=== PATIENT | female | born 1965 | race Caucasian/White ===

== ENCOUNTER 2019-07-14 15:41 | Inpatient (IN) ==
[2019-07-14] MEDS ORDERED: SODIUM CHLORIDE 0.9% 1000ML 500 ML IV ONE (16:16)
--- NOTE | 2019-07-14 16:51 | XRay Report ---
XR chest 1V portable CLINICAL HISTORY: WEAKNESS COMPARISON STUDY: 12/02/2018 FINDINGS: Cardiomegaly. Potential small parenchymal infiltrate left base. Chronic fullness of the rig ht infrahilar region. Slight chronic blunting right lateral costophrenic angle. Mid and upper lungs a re considered clear. Pulmonary vasculature is prominent. IMPRESSION: Mild congestive heart failure with a small superimposed left basilar parenchymal infiltr ate. ACT 112: Negative or not required by law. The above report was generated using voice recognition software. It may contain grammatical, syntax or spelling errors. Electronically signed by: Castro Lancaster M.D. 07/14/2019 4:50 PM
--- NOTE | 2019-07-14 17:01 | CT Scan Report ---
CT head/brain wo con CT DOSE: 1228.53 mGy.cm HISTORY: Mental status change Pt c/o seizure TECHNIQUE: Multiaxial CT images of the head were performed without the use of intravenous contrast. A dose lowering technique was utilized adhering to the principles of ALARA. Comparison: 05/01/2019 Findings: No significant change compared to the prior study. The ventriculostomy catheter as well as right occipital craniotomy changes are unaltered. Vasogenic edematous change of the right occipital lobe is stable. There is no evidence for hydrocephalus. Left lateral ventricle is decompressed which is unchanged fro m the prior study. There is no evidence for acute intracranial hemorrhage. Impression: Chronic and postoperative change. No acute or interval process as compared to the prior study. ACT 112: Negative or not required by law. The above report was generated using voice recognition software. It may contain grammatical, syntax or spelling errors. Electronically signed by: Castro Lancaster M.D. 07/14/2019 5:00 PM
--- NOTE | 2019-07-14 17:02 | Electrocardiogram Report ---
Test Reason : Blood Pressure : / mmHG Vent. Rate : 083 BPM Atrial Rate : 085 BPM P-R Int : 000 ms QRS Dur : 160 ms QT Int : 402 ms P-R-T Axes : 000 244 091 degrees QTc Int : 472 ms Atrial fibrillation Left bundle branch block Lateral infarct , age undetermined Abnormal ECG When compared with ECG of 01-MAY-2019 21:08, No significant change Confirmed by Mansoor Martinez ([id number]) on 07/14/2019 5:01:34 PM Referred By: Confirmed By:Mansoor Martinez
[2019-07-14] MEDS ORDERED: PIPERACILL/TAZOBAC CONSULT ACTIVE PRN ×2 (17:08→20:05)
[2019-07-14] MEDS ORDERED: PIPERACILLIN/TAZOBACTAM 4.5 GM/120 ML BAG IV ONE (17:08)
[2019-07-14] MEDS ORDERED: LEVOFLOXACIN/D5W 750 MG/150 ML BAG IV STA (17:08)
[2019-07-14 17:27] LABS: Hematocrit (blood only) 25.8 % (37-47); Hemoglobin 7.6 g/dL (12.0-16.0); Mean Corpuscular Hemoglobin 29.6 pg (25-34); Mean Corpuscular Hgb Conc 29.5 g/dL (32-36); Mean Corpuscular Volume 100.4 fL (80-100); RDW Coefficient of Variation 17.3 % (11.5-14.5); Red Blood Count 2.57 M/uL (4.2-5.4); White Blood Count 4.56 K/uL (4.8-10.8)
[2019-07-14 17:28] LABS: Basophils # (auto) 0.01 K/uL (0-0.2); Basophils % (auto) 0.2 %; Echinocytes 1+; Eosinophils # (auto) 0.05 K/uL (0-0.5); Eosinophils % (auto) 1.1 %; Immature Granulocytes # (auto) 0.02 K/uL (0.00-0.02); Immature Granulocytes % (auto) 0.4 %; Lymphocytes # (auto) 0.29 K/uL (1.2-3.4); Lymphocytes % (auto) 6.4 %; Mean Platelet Volume 11.7 fL (7.4-10.4); Monocytes # (auto) 0.49 K/uL (0.11-0.59); Monocytes % (auto) 10.7 %; Neutrophils % (auto) 81.2 %; Nucleated RBC # (auto) 0.06 K/uL (0-0); Nucleated RBC % (auto) 1.2 %; Ovalocytes 1+; Platelet Count 77 K/uL (130-400); Platelet Estimate Decreased (Normal)
[2019-07-14] MEDS ORDERED: SODIUM CHLORIDE 0.9% 250 ML IV PRN (17:31)
[2019-07-14 17:35] LABS: Giant Platelets 1+
[2019-07-14 17:55] LABS: Albumin Globulin Ratio 0.7 (0.9-2); Albumin Level 1.7 gm/dl (3.4-5.0); BUN Creatinine Ratio 7.2 (10-20); Bilirubin,Total 0.4 mg/dl (0.2-1); Calcium 5.1 mg/dl (8.5-10.1); Creatinine Clr Calc Pharmacy 30.3 ml/min; Est GFR (Non-African American) 23.3; Globulin 2.3 gm/dl (2.5-4.0); Potassium 2.3 mmol/L (3.5-5.1); Thyroid Stimulating Hormone 2.25 uIu/ml (0.300-4.500)
[2019-07-14] MEDS ORDERED: PANTOprazole 80 MG in DEXTROSE 5% 100 ML IV STA (18:36)
--- NOTE | 2019-07-14 18:41 | History & Physical Report ---
Date of Service July 14, 2019 Assessment & Plan (1) Lethargy: Seems likely related to lunesta use in the setting of ESRD and incomplete HD HypoK, PNA, and anemia are likely contributing as well d/c lunesta CT head neg for acute TSH WNL IVF Monitor Some concern for seizure at HD, however no hx of this and described as more of a shaking episode Likely related to lunesta or possibly a vasovagal reaction Tele monitor (2) ESRD (end stage renal disease): HD on // Not completed on Wednesday, which likely allowed for further lunesta stacking Renal c/s (3) CHF (congestive heart failure): Noted on CXR Unclear if this is a chronic issue No diuretics on med rec (4) PNA (pneumonia): zosyn started in the ED, will continue Noted on CXR (5) COPD (chronic obstructive pulmonary disease): continue home meds (6) Anemia: Hb 04/2019 was 9.8, noted to be 7.6 on admission Hemoccult pending NPO 2 units PRBC pending (7) Hypokalemia: replace and monitor (8) Hypocalcemia: Monitor (9) DVT prophylaxis: SCDs given above History of Present Illness Primary Care Provider: Ozzy Madison 53 y/o F who was sent to the ED after having some sort of shaking episode during her routing HD this afternoon. There was some concern that this was a seizure. Family present state that pt has been having ongoing insomnia issues recently. They have tried several medications for this. She was started on lunesta 5 days ago. Family noted that pt was very lethargic 2 days ago and requested that the lunesta be stopped. Family states that pt was still getting this medication and has become more lethargic during this time. Pt has no hx of seizures. Family states that since starting the lunesta, pt has become more confused overall. Pt denies fever, SOB, chest pain, abd pain, n/v/c/d, LE pain or swelling. Pt was also not able to finish HD on Wednesday due to feeling generally unwell. Allergies Allergy/AdvReac Type Severity Reaction Status Date / Time morphine Allergy Intermediate Photosensit Verified 07/14/19 17:06 ivity nitroglycerin Allergy Mild Nausea Verified 07/14/19 17:06 Home Medications Home Medications Medication Instructions Recorded Confirmed Type acetaminophen 650 mg PO Q6H PRN MDD 3g/24hr 12/02/18 07/14/19 History acetaminophen 650 mg PO Q6H PRN MDD 3g/24hr 12/02/18 07/14/19 History allopurinol 100 mg PO DAILY 12/02/18 07/14/19 History calcium acetate(phosphat bind) 1,334 mg PO TIDM 12/02/18 07/14/19 History digoxin 125 mcg PO 2XWK 12/02/18 07/14/19 History ipratropium-albuterol [Combivent 2 puff INHALATION Q4 PRN 12/02/18 07/14/19 History Respimat] metoprolol succinate 12.5 mg PO BID 12/02/18 07/14/19 History ondansetron HCl [Zofran] 4 mg PO Q6H PRN 12/02/18 07/14/19 History ropinirole 0.5 mg PO HS 12/02/18 07/14/19 History aspirin 81 mg PO DAILY 05/01/19 07/14/19 History bacitracin 1 applic TOPICAL Q8H 05/01/19 07/14/19 History bisacodyl [Dulcolax (bisacodyl)] 10 mg KS DAILY PRN 05/01/19 07/14/19 History famotidine 20 mg PO BID 05/01/19 07/14/19 History folic acid 1 mg PO DAILY 05/01/19 07/14/19 History menthol [Aspercreme Heat] 1 applic TOPICAL Q8H PRN 05/01/19 07/14/19 History midodrine 10 mg PO DAILY 05/01/19 07/14/19 History meclizine 25 mg tablet 25 mg PO TID PRN 06/08/19 07/14/19 History oxycodone-acetaminophen 5 mg-325 1 tab PO Q6H PRN 06/08/19 07/14/19 History mg tablet B complex-vitamin C-folic acid 1 tab PO DAILY 07/14/19 07/14/19 History [Renal Vitamin] eszopiclone [Lunesta] 2 mg PO HS 07/14/19 07/14/19 History omeprazole 40 mg PO DAILY 07/14/19 07/14/19 History sertraline 75 mg PO DAILY 07/14/19 07/14/19 History trazodone 150 mg PO HS 07/14/19 07/14/19 History Past Med/Surg History Medical History Atrial fibrillation Dialysis patient Family History (Updated 07/14/19 @ 18:39 by Mary Gupta DO) Other No pertinent family history in first degree relatives Denies family history of Myocardial infarction Social History (Updated 07/14/19 @ 18:39 by Mary Gupta DO) Preferred Language: [place] Communication Ability: Effective 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 Beliefs That Will Affect Care: None Current Living Situation: Retirement Other Information That Helps Us Care for You: No Feels Safe at Home: Yes Safety Concerns: Feels Safe At This Time Smoking Status: Never smoker Hx Alcohol Use: No Hx Substance Use: No Review of Systems Review of Systems: Pertinent positives and negatives reviewed in HPI--all others negative Physical Exam Constitutional: WD/WN, vitals as above Eyes: normal visual fung by confrontation and + anicteric sclerae Neck: normal visual inspection and trachea midline Respiratory: normal respiratory effort; no respiratory distress and no labored breathing Auscultation: + crackles; no wheezes Cardiovascular: Rate/Rhythm: regular rate; + abnormal rhythm Gastrointestinal (Abdomen): Inspection/Auscultation: abdomen not distended Percussion/Palpation: abdomen soft; abdomen nontender Musculoskeletal: Head/Neck/Chest: normocephalic and head atraumatic negative for edema, peripheral pulses intact Skin: no rashes, warm and dry Neurologic: awake; not confused Speech / Cognition: normal speech Psychiatric: A+Ox3, euthymic affect Pt opens eyes to answer questions, but head droops between questions and pt appears overall lethargic Results & Data Vital Signs (Past 12 Hours) Vital Signs Temp Pulse Pulse Resp BP BP Pulse Ox 07/14/19 18:00 71 96 07/14/19 17:01 85 14 115/72 100 07/14/19 16:23 75 100 07/14/19 15:57 37.2 C 95 H 18 112/68 97 Diagnostic Findings CXR: CHF, L base infiltrate ECG Rhythm: atrial fibrillation Code Status & VTE Plan Code Status Full code VTE Prophylaxis Plan VTE Prophylaxis will be ordered: Yes PG Care Time/CCT Total # of Minutes Spent Total Time Spent with Patient: Total time spent is greater than 50% in coordination of care (as documented) at patient's floor/unit and/or counseling patient: Coding Level of Care Code 87952 Initial Inpt Care Lvl 3 Diagnoses Lethargy R53.83 ESRD (end stage renal disease) N18.6 CHF (congestive heart failure) I50.9 PNA (pneumonia) J18.9 COPD (chronic obstructive pulmonary disease) J44.9 Anemia D64.9 Hypokalemia E87.6 Hypocalcemia E83.51 DVT prophylaxis Z29.9
--- NOTE | 2019-07-14 19:40 | Emergency Department Note ---
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 Patient reports she had been feeling well before dialysis however has never had a seizure previously. Dialysis was stopped and the patient was sent to the emergency department. Upon arrival to the emergency department the patient's only complaint is that she feels tired. She denies any fevers or chills. Home Medications Home Medications Medication Instructions Recorded Confirmed Type acetaminophen 650 mg PO Q6H PRN MDD 3g/24hr 12/02/18 07/14/19 History acetaminophen 650 mg PO Q6H PRN MDD 3g/24hr 12/02/18 07/14/19 History allopurinol 100 mg PO DAILY 12/02/18 07/14/19 History calcium acetate(phosphat bind) 1,334 mg PO TIDM 12/02/18 07/14/19 History digoxin 125 mcg PO 2XWK 12/02/18 07/14/19 History ipratropium-albuterol [Combivent 2 puff INHALATION Q4 PRN 12/02/18 07/14/19 History Respimat] metoprolol succinate 12.5 mg PO BID 12/02/18 07/14/19 History ondansetron HCl [Zofran] 4 mg PO Q6H PRN 12/02/18 07/14/19 History ropinirole 0.5 mg PO HS 12/02/18 07/14/19 History aspirin 81 mg PO DAILY 05/01/19 07/14/19 History bacitracin 1 applic TOPICAL Q8H 05/01/19 07/14/19 History bisacodyl [Dulcolax (bisacodyl)] 10 mg [place] DAILY PRN 05/01/19 07/14/19 History famotidine 20 mg PO BID 05/01/19 07/14/19 History folic acid 1 mg PO DAILY 05/01/19 07/14/19 History menthol [Aspercreme Heat] 1 applic TOPICAL Q8H PRN 05/01/19 07/14/19 History midodrine 10 mg PO DAILY 05/01/19 07/14/19 History meclizine 25 mg tablet 25 mg PO TID PRN 06/08/19 07/14/19 History oxycodone-acetaminophen 5 mg-325 1 tab PO Q6H PRN 06/08/19 07/14/19 History mg tablet B complex-vitamin C-folic acid 1 tab PO DAILY 07/14/19 07/14/19 History [Renal Vitamin] eszopiclone [Lunesta] 2 mg PO HS 07/14/19 07/14/19 History omeprazole 40 mg PO DAILY 07/14/19 07/14/19 History sertraline 75 mg PO DAILY 07/14/19 07/14/19 History trazodone 150 mg PO HS 07/14/19 07/14/19 History Allergies Allergy/AdvReac Type Severity Reaction Status Date / Time morphine Allergy Intermediate Photosensit Verified 07/14/19 17:06 ivity nitroglycerin Allergy Mild Nausea Verified 07/14/19 17:06 Past Med/Surg History Medical History Atrial fibrillation Dialysis patient Family History (Updated 07/14/19 @ 18:39 by Mary Gupta DO) Other No pertinent family history in first degree relatives Denies family history of Myocardial infarction Social History (Updated 07/14/19 @ 18:39 by Mary Gupta DO) Preferred Language: Thai Communication Ability: Effective 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 Beliefs That Will Affect Care: None Current Living Situation: [facility] Other Information That Helps Us Care for You: No Feels Safe at Home: Yes Safety Concerns: Feels Safe At This Time Smoking Status: Never smoker Hx Alcohol Use: No Hx Substance Use: No Review of Systems A total of 10 systems reviewed and were otherwise negative Physical Exam Vital Signs Vital Signs - 24 hr 07/14/19 15:57 07/14/19 16:13 07/14/19 16:23 Temperature 37.2 C Temperature Source Oral Pulse Rate 95 H 89 75 Pulse Rate [Right Finger] Pulse Rate from SpO2 Sensor 82 Pulse Rhythm [Right Finger] Pulse Strength [Right Finger] Respiratory Rate 18 22 Respiratory Effort / Characteristics Respiratory Depth Respiratory Pattern Blood Pressure 112/68 112/68 Blood Pressure [Right Arm] Blood Pressure Mean 82 79 Blood Pressure Mean [Right Arm] Blood Pressure Position Sitting Blood Pressure Position [Right Arm] Pulse Oximetry 97 91 100 Oxygen Delivery Method Nasal Cannula Nasal Cannula Oxygen Flow Rate 2 2 Sepsis Recent Fever Within 48 Hours No Sepsis New/Unexplained Change in Mental Status No Sepsis Action Taken by Nursing No Action Required 07/14/19 16:46 07/14/19 16:58 07/14/19 16:59 Temperature Temperature Source Pulse Rate 81 Pulse Rate [Right Finger] Pulse Rate from SpO2 Sensor 84 89 Pulse Rhythm [Right Finger] Pulse Strength [Right Finger] Respiratory Rate 22 Respiratory Effort / Characteristics Respiratory Depth Respiratory Pattern Blood Pressure Blood Pressure [Right Arm] Blood Pressure Mean Blood Pressure Mean [Right Arm] Blood Pressure Position Blood Pressure Position [Right Arm] Pulse Oximetry 91 90 Oxygen Delivery Method Nasal Cannula Nasal Cannula Nasal Cannula Oxygen Flow Rate 2 2 2 Sepsis Recent Fever Within 48 Hours Sepsis New/Unexplained Change in Mental Status Sepsis Action Taken by Nursing 07/14/19 17:00 07/14/19 17:01 07/14/19 17:10 Temperature Temperature Source Pulse Rate 87 Pulse Rate [Right Finger] 85 Pulse Rate from SpO2 Sensor 93 H 90 84 Pulse Rhythm [Right Finger] Regular Pulse Strength [Right Finger] Normal Respiratory Rate 14 20 Respiratory Effort / Characteristics Non-Labored Spontaneous Respiratory Depth Normal Respiratory Pattern Regular Blood Pressure 115/72 Blood Pressure [Right Arm] 115/72 Blood Pressure Mean 79 Blood Pressure Mean [Right Arm] 86 Blood Pressure Position Blood Pressure Position [Right Arm] Sitting Pulse Oximetry 90 96 100 Oxygen Delivery Method Nasal Cannula Nasal Cannula Nasal Cannula Oxygen Flow Rate 2 2 2 Sepsis Recent Fever Within 48 Hours Sepsis New/Unexplained Change in Mental Status Sepsis Action Taken by Nursing 07/14/19 17:20 07/14/19 17:30 07/14/19 17:40 Temperature Temperature Source Pulse Rate 84 82 76 Pulse Rate [Right Finger] Pulse Rate from SpO2 Sensor 76 78 75 Pulse Rhythm [Right Finger] Pulse Strength [Right Finger] Respiratory Rate 26 H 16 17 Respiratory Effort / Characteristics Respiratory Depth Respiratory Pattern Blood Pressure Blood Pressure [Right Arm] Blood Pressure Mean Blood Pressure Mean [Right Arm] Blood Pressure Position Blood Pressure Position [Right Arm] Pulse Oximetry 100 100 100 Oxygen Delivery Method Nasal Cannula Nasal Cannula Nasal Cannula Oxygen Flow Rate 2 2 2 Sepsis Recent Fever Within 48 Hours Sepsis New/Unexplained Change in Mental Status Sepsis Action Taken by Nursing 07/14/19 17:50 07/14/19 18:00 07/14/19 18:10 Temperature Temperature Source Pulse Rate 80 77 88 Pulse Rate [Right Finger] 71 Pulse Rate from SpO2 Sensor Pulse Rhythm [Right Finger] Pulse Strength [Right Finger] Respiratory Rate 26 H 21 26 H Respiratory Effort / Characteristics Respiratory Depth Respiratory Pattern Blood Pressure Blood Pressure [Right Arm] Blood Pressure Mean Blood Pressure Mean [Right Arm] Blood Pressure Position Blood Pressure Position [Right Arm] Pulse Oximetry 96 Oxygen Delivery Method Nasal Cannula Nasal Cannula Nasal Cannula Oxygen Flow Rate 2 2 2 Sepsis Recent Fever Within 48 Hours Sepsis New/Unexplained Change in Mental Status Sepsis Action Taken by Nursing 07/14/19 18:20 07/14/19 18:30 Temperature Temperature Source Pulse Rate 74 79 Pulse Rate [Right Finger] Pulse Rate from SpO2 Sensor 76 80 Pulse Rhythm [Right Finger] Pulse Strength [Right Finger] Respiratory Rate 28 H 27 H Respiratory Effort / Characteristics Respiratory Depth Respiratory Pattern Blood Pressure Blood Pressure [Right Arm] Blood Pressure Mean Blood Pressure Mean [Right Arm] Blood Pressure Position Blood Pressure Position [Right Arm] Pulse Oximetry 100 100 Oxygen Delivery Method Nasal Cannula Nasal Cannula Oxygen Flow Rate 2 2 Sepsis Recent Fever Within 48 Hours Sepsis New/Unexplained Change in Mental Status Sepsis Action Taken by Nursing GENERAL: Patient is a healthy-appearing well-nourishedfemale HEAD: Normocephalic atraumatic EYES: Ocular movements intact pupils equal and react to light OROPHARYNX mucous membranes are moist no exudates present no erythema or edema present NECK: Supple no nuchal rigidity CHEST: Good equal expansion LUNGS: Clear and equal to auscultation CARDIAC: Normal S1 and S2 ABDOMEN: Soft nontender no guarding BACK: No CVA tenderness EXTREMITIES: No pain upon palpation normal muscle strength in all groups no clubbing cyanosis or edema NEURO: Patient is following commands is answering questions appropriately. Alert and oriented x3 Cranial Nerves 2-12 grossly intact Course Administered Medications Bacitracin (Bacitracin) 1 appln TOP Q8H [facility] Stop: 08/13/19 20:59 Last Admin: 07/14/19 21:27 Dose: 1 appln Documented by: [id number] Famotidine (Pepcid) 20 mg PO BID [facility] Stop: 08/13/19 20:59 Last Admin: 07/14/19 21:27 Dose: 20 mg Documented by: [id number] Pantoprazole Sodium 40 mg/ (Dextrose) 100 mls @ 20 mls/hr IV Q5H [facility] Stop: 08/13/19 18:59 Last Admin: 07/14/19 20:13 Dose: 8 mg/hr, 20 mls/hr Documented by: [id number] Potassium Chloride (K Gurpreet / Wtr) 10 meq in 100 mls @ 100 mls/hr IV Q1H [place] Stop: 07/15/19 00:44 Last Admin: 07/14/19 23:12 Dose: 100 mls/hr Documented by: [id number] Infusion: 07/14/19 22:19 Dose: 100 mls/hr Documented by: [id number] Admin: 07/14/19 21:19 Dose: 100 mls/hr Documented by: [id number] Metoprolol Succinate (Toprol Xl) 12.5 mg PO BID [place] Stop: 08/13/19 20:59 Last Admin: 07/14/19 21:27 Dose: 12.5 mg Documented by: [id number] Ropinirole HCl (Requip) 0.5 mg PO HS [place] Stop: 08/13/19 20:59 Last Admin: 07/14/19 21:26 Dose: 0.5 mg Documented by: [id number] Discontinued Medications Sodium Chloride (Nss 1000ml) 500 mls @ 999 mls/hr IV .Q31M ONE Stop: 07/14/19 16:46 Last Infusion: 07/14/19 17:18 Dose: 0 mls/hr Documented by: [id number] Admin: 07/14/19 16:46 Dose: 999 mls/hr Documented by: [id number] Piperacillin Sod/Tazobactam Sod (Zosyn) 4.5 gm in 120 mls @ 240 mls/hr IV NOW ONE Stop: 07/14/19 17:37 Last Infusion: 07/14/19 18:28 Dose: 0 mls/hr Documented by: [id number] Admin: 07/14/19 17:53 Dose: 240 mls/hr Documented by: [id number] Levofloxacin/Dextrose (Levaquin/D5w) 750 mg in 150 mls @ 100 mls/hr IV NOW STA Stop: 07/14/19 18:37 Last Infusion: 07/14/19 19:23 Dose: 0 mls/hr Documented by: [id number] Admin: 07/14/19 17:53 Dose: 100 mls/hr Documented by: [id number] Pantoprazole Sodium 80 mg/ (Dextrose) 120 mls @ 480 mls/hr IV NOW STA Stop: 07/14/19 18:50 Last Infusion: 07/14/19 20:13 Dose: 0 mls/hr Documented by: [id number] Admin: 07/14/19 19:28 Dose: 480 mls/hr Documented by: [id number] Medical Decision Making Differential Diagnosis My differential diagnosis includes but is not limited to anemia, lethargy, UTI, thyroid storm, myocardial infarction Medical Records Attestation: I reviewed the patient's medical records. Home Medications Current Medication List: was personally reviewed by me Laboratory Data Attestation: I reviewed the patient's lab results. Result diagrams: 07/14/19 21:21 07/14/19 16:37 Lab Results 07/14/19 07/14/19 07/14/19 Range/Units 16:37 16:37 17:40 WBC 4.56 L (4.8-10.8) K/uL RBC 2.57 L (4.2-5.4) M/uL Hgb 7.6 L (12.0-16.0) g/dL Hct 25.8 L (37-47) % MCV 100.4 H (80-100) fL MCH 29.6 (25-34) pg MCHC 29.5 L (32-36) g/dL RDW Std Deviation 63.0 H (36.4-46.3) fL RDW Coeff of Analia 17.3 H (11.5-14.5) % Plt Count 77 L (130-400) K/uL MPV 11.7 H (7.4-10.4) fL Immature Gran % (Auto) 0.4 % Neut % (Auto) 81.2 % Lymph % (Auto) 6.4 % [place] % (Auto) 10.7 % Eos % (Auto) 1.1 % Baso % (Auto) 0.2 % Immature Gran # (Auto) 0.02 (0.00-0.02) K/uL Neut # (Auto) 3.70 (1.4-6.5) K/uL Lymph # (Auto) 0.29 L (1.2-3.4) K/uL [place] # (Auto) 0.49 (0.11-0.59) K/uL Eos # (Auto) 0.05 (0-0.5) K/uL Baso # (Auto) 0.01 (0-0.2) K/uL Absolute Nucleated RBC 0.06 H (0-0) K/uL Nucleated RBC % (auto) 1.2 % Platelet Estimate Decreased L (Normal) Giant Platelets 1+ Ovalocytes 1+ Echinocytes 1+ Sodium 144 (136-145) mmol/L Potassium 2.3 L* (3.5-5.1) mmol/L Chloride 118 H (98-107) mmol/L Carbon Dioxide 21 (21-32) mmol/L Anion Gap 5.0 (3-11) BUN 17 (7-18) mg/dl Creatinine 2.29 H (0.6-1.2) mg/dl Est Cr Clr Drug Dosing 30.3 ml/min Est GFR ( Amer) 27.0 Est GFR (Non-Af Amer) 23.3 BUN/Creatinine Ratio 7.2 L (10-20) Glucose 76 (70-99) mg/dl Calcium 5.1 L* (8.5-10.1) mg/dl Total Bilirubin 0.4 (0.2-1) mg/dl AST 8 L (15-37) U/L ALT 12 (12-78) U/L Alkaline Phosphatase 81 (45-117) U/L Total Creatine Kinase 15 L (26-192) U/L Total Protein 4.0 L (6.4-8.2) gm/dl Albumin 1.7 L (3.4-5.0) gm/dl Globulin 2.3 L (2.5-4.0) gm/dl Albumin/Globulin Ratio 0.7 L (0.9-2) TSH 2.250 (0.300-4.500) uIu/ml Blood Type A Positive Antibody Screen POSITIVE A Crossmatch See Detail Imaging Data Radiologist's Impression: CT head/brain wo con CT DOSE: 1228.53 mGy.cm HISTORY: Mental status change Pt c/o seizure TECHNIQUE: Multiaxial CT images of the head were performed without the use of intravenous contrast. A dose lowering technique was utilized adhering to the principles of ALARA. Comparison: 05/01/2019 Findings: No significant change compared to the prior study. The ventriculostomy catheter as well as right occipital craniotomy changes are unaltered. Vasogenic edematous change of the right occipital lobe is stable. There is no evidence for hydrocephalus. Left lateral ventricle is decompressed which is unchanged from the prior study. There is no evidence for acute intracranial hemorrhage. Impression: Chronic and postoperative change. No acute or interval process as compared to the prior study. ACT 112: Negative or not required by law. The above report was generated using voice recognition software. It may contain grammatical, syntax or spelling errors. Electronically signed by: Castro Lancaster M.D. 07/14/2019 5:00 PM Dictated: 07/14/191656 Transcribed: 07/14/191656 [place], [place] [phone] XRay Report Patient: AN MOTTA AAdmit Date: 07/14/19 MR#: [id number]: [address]EC[address] NAM Acct ID:[id number]: [place] Date: 1965[facility] Zip: [place] [address] Age: 53Location: ED Sex: F Room/Bed: Att Phy:Diagnosis: SEIZURE, LETHARGIC Peg Phy: Heartyazmin BeaverService Date: 07/14/19 Fam Phy:Interpreting Phy: Castro Lancaster MD Admit Phy: Ordering Phy: Danny Wren MD cc: ~ XR chest 1V portable CLINICAL HISTORY: WEAKNESS COMPARISON STUDY: 12/02/2018 FINDINGS: Cardiomegaly. Potential small parenchymal infiltrate left base. Chronic fullness of the right infrahilar region. Slight chronic blunting right lateral costophrenic angle. Mid and upper lungs are considered clear. Pulmonary vasculature is prominent. IMPRESSION: Mild congestive heart failure with a small superimposed left basilar parenchymal infiltrate. ACT 112: Negative or not required by law. The above report was generated using voice recognition software. It may contain grammatical, syntax or spelling errors. Electronically signed by: Castro Lancaster M.D. 07/14/2019 4:50 PM Dictated: 07/14/191645 Transcribed: 07/14/191645 ECG Data Attestation: I personally reviewed and interpreted this ECG as follows: Indication: + altered mental status Rate (beats per minute): 83 Rhythm: + atrial fibrillation ECG Intervals/blocks: + Normal QT-c (472) ECG ST segments: no ST depression and no ST elevation ECG Findings: + Other (Old lateral infarct) Comparison ECG Date: from (05/01/2019) Change: no significant change Blood Pressure Blood Pressure Findings: Normal blood pressure MDM Narrative This is a 53-year-old female who presents emergency department after a seizure. She was sent for a CAT scan the head which does not show any evidence of acute fracture dislocation or subluxation. Patient's potassium and calcium were also found to be low acute she was started on Zosyn as well as Levaquin for what appears to be a pneumonia. I did discuss the case the hospitalist service who did agree to meet the patient. Impression & Plan PNA (pneumonia), Hypokalemia, Hypocalcemia, Seizure Discharge Plan Visit Data *Final* Discharge Date/Time: 07/14/19 19:17 Chief Complaint: Lethargic Stated Complaint: SEIZURE, LETHARGIC ED Provider: Danny Wren Discharge Problem: PNA (pneumonia), Hypokalemia, Hypocalcemia, Seizure Patient Disposition: Admitted As Inpatient Discharge Instructions Interventions: ED Discharge Assessment Last Done: 07/14/19 19:17 Discharge Problem: PNA (pneumonia) Qualifiers: Pneumonia type: due to unspecified organism Laterality: unspecified laterality Lung location: unspecified part of lung Qualified Code(s): J18.9 - Pneumonia, unspecified organism
[2019-07-14] MEDS ORDERED: MENTHOL TOP PRN (20:05)
[2019-07-14] MEDS ORDERED: ACETAMINOPHEN 325 MG TAB PO PRN ×2 (20:05)
[2019-07-14] MEDS ORDERED: bisacodyL 10 MG SUPP PR PRN (20:05)
[2019-07-14] MEDS ORDERED: OXYCODONE/ACETAMINOPHEN 5mg/325mg TAB PO PRN (20:05)
[2019-07-14] MEDS ORDERED: MAGNESIUM HYDROXIDE SUSP 30 ML UDC PO PRN (20:05)
[2019-07-14] MEDS ORDERED: ONDANSETRON INJ 2 MG/ML 2 ML VIAL IV PRN (20:05)
[2019-07-14] MEDS ORDERED: IPRATROPIUM BROMIDE/ALBUTEROL respimat INH INH PRN (20:05)
[2019-07-14] MEDS: PANTOprazole 40 MG in DEXTROSE 5% 100 ML IV SCH (20:13)
[2019-07-14] MEDS ORDERED: MECLIZINE HCL 25 MG TAB PO PRN (20:27)
[2019-07-14] MEDS ORDERED: ONDANSETRON 4 MG OD TAB PO PRN (20:28)
[2019-07-14] MEDS ORDERED: D5NSS + 20MEQ KCL 20 MEQ/1,000 ML BAG IV SCH (20:40)
[2019-07-14 21:00] LABS: Hemoglobin 10.7 g/dL (12.0-16.0)
[2019-07-14] MEDS: POTASSIUM CHLORIDE / WTR 10 MEQ/100 ML PLCT IV SCH ×2 (21:19→23:12)
[2019-07-14] MEDS: ROPINIROLE HCL 0.25 MG TABLET PO SCH (21:26)
[2019-07-14] MEDS: FAMOTIDINE 20 MG TAB PO SCH (21:27)
[2019-07-14] MEDS: METOPROLOL SUCC 25MG EXT REL TAB PO SCH (21:27)
[2019-07-14] MEDS: BACITRACIN OINT 15 GM TUBE TOP SCH (21:27)
[2019-07-14 21:33] LABS: Hematocrit (blood only) 36.7 % (37-47); Hemoglobin 10.5 g/dL (12.0-16.0)
--- NOTE | 2019-07-14 22:46 | History & Physical Bridge Note ---
Date of Service July 14, 2019 History & Physical Bridge Note Called by nursing as timed H/H was done prior to transfusion and reported Hb is 10.7 Repeat H/H is 10.5 It appears that prior Hb in ED was a lab error Diet to clears d/c IVF Repeat in AM
[2019-07-15] MEDS: POTASSIUM CHLORIDE / WTR 10 MEQ/100 ML PLCT IV SCH ×2 (00:50→02:49)
[2019-07-15] MEDS ORDERED: VANCOMYCIN CONSULT ACTIVE PRN (01:05)
[2019-07-15] MEDS: PANTOprazole 40 MG in DEXTROSE 5% 100 ML IV SCH (01:12)
[2019-07-15] MEDS ORDERED: VANCOMYCIN HCL 1,500 MG in SODIUM CHLORIDE 0.9% 500 ML IV ONE (02:00)
[2019-07-15] MEDS: PIPERACILLIN/TAZOBACTAM 3.375 GM in DEXTROSE 5% 100 ML IV SCH ×2 (02:47→13:41)
[2019-07-15] MEDS: BACITRACIN OINT 15 GM TUBE TOP SCH ×3 (04:29→20:34)
[2019-07-15 06:54] LABS: Basophils # (auto) 0.01 K/uL (0-0.2); Basophils % (auto) 0.1 %; Eosinophils # (auto) 0.15 K/uL (0-0.5); Hematocrit (blood only) 39.6 % (37-47); Hemoglobin 11.3 g/dL (12.0-16.0); Immature Granulocytes # (auto) 0.03 K/uL (0.00-0.02); Immature Granulocytes % (auto) 0.4 %; Lymphocytes % (auto) 8.2 %; Mean Corpuscular Hemoglobin 28.8 pg (25-34); Mean Corpuscular Hgb Conc 28.5 g/dL (32-36); Mean Corpuscular Volume 100.8 fL (80-100); Mean Platelet Volume 11.8 fL (7.4-10.4); Monocytes # (auto) 0.65 K/uL (0.11-0.59); Monocytes % (auto) 8.9 %; Neutrophils % (auto) 80.4 %; Nucleated RBC # (auto) 0.04 K/uL (0-0); Nucleated RBC % (auto) 0.5 %; Platelet Count 105 K/uL (130-400); RDW Standard Deviation 62.9 fL (36.4-46.3); Red Blood Count 3.93 M/uL (4.2-5.4); White Blood Count 7.34 K/uL (4.8-10.8)
[2019-07-15 07:39] LABS: BUN Creatinine Ratio 6.7 (10-20); Calcium 9.1 mg/dl (8.5-10.1); Creatinine Clr Calc Pharmacy 13.3 ml/min; Est GFR (African American) 11.2; Est GFR (Non-African American) 9.6
[2019-07-15 08:14] LABS: Potassium 4.7 mmol/L (3.5-5.1)
[2019-07-15] MEDS: METOPROLOL SUCC 25MG EXT REL TAB PO SCH ×2 (08:43→20:35)
[2019-07-15] MEDS: CALCIUM ACETATE 667 MG CAP/TAB PO SCH ×3 (08:44→16:32)
[2019-07-15] MEDS: MIDODRINE HCL 10 MG TAB PO SCH (08:44)
[2019-07-15] MEDS: FOLIC ACID 1 MG TAB PO SCH (08:44)
[2019-07-15] MEDS: SERTRALINE HCL 50 MG TABLET PO SCH (08:45)
[2019-07-15] MEDS: FAMOTIDINE 20 MG TAB PO SCH ×2 (08:45→20:35)
[2019-07-15] MEDS: allopurinoL 100 MG TAB PO SCH (08:45)
--- NOTE | 2019-07-15 10:29 | Pharmacy Report ---
Pharmacy Abx Initial Consult - Date of Service July 15, 2019 - Pharmacy Dosing Scope Date of Consult: 07/15/19 Consultation requested by: Dr. Resendez Pharmacy is consulted to initiate Vancomycin + Zosyn IV dosing therapy, order appropriate labs and adjust drug dose/frequency. - Subjective The patient is a 53 year old F admitted on 07/14/19 18:39. - Objective Height: 5 ft 4 in Weight: 75.5 kg Vital Signs (Past 12hrs): Vital Signs Temp Pulse Pulse Resp BP Pulse Ox 07/15/19 07:46 36.5 C 80 22 116/71 96 07/15/19 03:18 36.9 C 82 22 100/55 L 98 07/15/19 00:08 83 07/14/19 23:11 36.9 C 82 19 116/66 98 Lab Results (24hrs): Laboratory Tests (24 Hours) 07/15/19 07/15/19 07/14/19 06:25 06:25 16:37 WBC 7.34 Neut # (Auto) 5.90 Creatinine 4.75 H* D 2.29 H Est Cr Clr Drug Dosing 13.3 30.3 Total Creatine Kinase 15 L 07/14/19 16:37 WBC 4.56 L Neut # (Auto) 3.70 Creatinine Est Cr Clr Drug Dosing Total Creatine Kinase - Risk Factors for Resistance * Chronic dialysis within the past 30 days - ESRD, HD ON M/W/ - Assessment & Plan Assessment 53 year old F presented to the ED after exhibiting seizure-like activity during routine HD on Wednesday. Patient had incomplete HD session earlier in the week on Wednesday. Chest XRay shows left lower infiltrate. MRSA swab positive patient afebrile since admission Plan Vancomycin + Zosyn for treatment of pulmonary source Vancomycin IV * Loading dose: 1500 mg (~20 mg/kg) x1 dose * Goal trough level : 15 to 20 mcg/mL * Random level ordered for tomorrow morning with AM labs (~22 hours after LD) to assist with supplemental dosing after dialysis. Piperacillin/tazobactam * 4.5 g bolus administered over 30 minutes, then 3.375 g IV extended infusion every 12 hours for patients on dialysis. Pharmacy will continue to follow and will adjust dose/frequency as necessary. Thank you.
--- NOTE | 2019-07-15 12:22 | Nephrology Consultation ---
Date of Consultation July 15, 2019 Assessment & Plan (1) ESRD (end stage renal disease): MWF HD chronically; tx shortened on Wednesday -2hrs HD tomorrow to maintain volume status optimization >> pt walks fine line between volume overload and chronic hypotension; we are short staffed on weekend and pt will be ok to run tomorrow just not to wait through whole weekend -using dialysis catheter as access b/c [place] [facility] [place] [facility] fistul[place] and transposition 07/20/19 Dr Oconnell Present on Admission?: Yes (2) CHF (congestive heart failure): -gentle hd as above -pls d/c liquid diet as soon as possible and put her on dialysis diet, 1.2L fluid limit Present on Admission?: Yes (3) Thrombocytopenia: her plts run consistently 80-110s for past several years; no formal diagnosis but stable Present on Admission?: Yes (4) Lethargy: ? if relation to low K on presentation (2.3; up to 4.7 this am >> though again this lab was drawn just after coming off dialysis and may not have been accurate. given her complex neurosurgical hx and recent ear complaints, recommend -observation -primary service discuss recent fluid /posterior ear fluid drainage w/ pt and examine further if still an issue -low threshold for blood cultures and full infectious work up including eval of shunt if concerns recur as well as neuro eval if recurs Present on Admission?: Yes (5) Anemia: 7.6 reading on initial draw yesterday afternoon apparently an error versus again inaccurate d/t not yet fluid shifted/reequiliibrated so soon after dialysis >> hgb 10.7 on recheck 3 hr later and with no intervention. Has remained in 10-11 range since. -daily cbc Present on Admission?: Yes (6) Malnutrition: albumin 1.7 >> recommend dietary consultation for appropriate protein/nutr ition supplement in this dialysis pt Present on Admission?: Yes History of Present Illness Reason for Consultation: ESRD on HD Requesting Physician: Dr Gupta Attending Physician: Tara Mcfarlane MD History of Present Illness Complex 53 y/o F ESRD pt and facility resident whose dialysis was stopped on yesterday d/t ? seizure, in setting of malaise. Other PMH includes remote aortic dissection w/ years later bioprosthetic AVR and aortic root repair, persistent postoperative a fib not on AC currently after large L intraparietal/intraventricular bleed 12/2018 s/p craniotomy, hematoma evacuation, CHASSIS WIRER shunt placement, chronic diastolic HF, COPD on 02nc chronically, chronic ambulatory dysfunction. Pt is unsure how much tx she missed; documentation does not state it. feeling relatively well today; anxious for d/c back to her facility. Remains on liquid diet and is quite hungry. She had 2.8L of IV medications and IVF since arrival yesterday. Head CT showed stable chronic changes including from her previous CHASSIS WIRER shunt; CXR w/ mild HF. She has been afebrile and hemodynamically stable since admission w/ no further episodes conc erning for seizure or other abrupt neuro status change. She had apparently recently been started on a sleeping medication. She is a facility resident and uses w/c mostly and walker at times to get around. No c/o currently except some fatigue and thirst/hunger. does not feel sob or edematous. She is anuric at baseline; no change to chronic voiding habits. She had recently been complaining of drainage from behind her L ear intermittently x mos; does not mention today. Plan had been for facility to f/u on that. Recently est care w/ [facility] endocrine for eval of a thyroid nodule >> they are to get more records and review. Allergies Allergy/AdvReac Type Severity Reaction Status Date / Time morphine Allergy Intermediate Photosensit Verified 07/14/19 17:06 ivity nitroglycerin Allergy Mild Nausea Verified 07/14/19 17:06 Home Medications Home Medications Medication Instructions Recorded Confirmed Type acetaminophen 650 mg PO Q6H PRN MDD 3g/24hr 12/02/18 07/14/19 History acetaminophen 650 mg PO Q6H PRN MDD 3g/24hr 12/02/18 07/14/19 History allopurinol 100 mg PO DAILY 12/02/18 07/14/19 History calcium acetate(phosphat bind) 1,334 mg PO TIDM 12/02/18 07/14/19 History digoxin 125 mcg PO 2XWK 12/02/18 07/14/19 History ipratropium-albuterol [Combivent 2 puff INHALATION Q4 PRN 12/02/18 07/14/19 History Respimat] metoprolol succinate 12.5 mg PO BID 12/02/18 07/14/19 History ondansetron HCl [Zofran] 4 mg PO Q6H PRN 12/02/18 07/14/19 History ropinirole 0.5 mg PO HS 12/02/18 07/14/19 History aspirin 81 mg PO DAILY 05/01/19 07/14/19 History bacitracin 1 applic TOPICAL Q8H 05/01/19 07/14/19 History bisacodyl [Dulcolax (bisacodyl)] 10 mg MN DAILY PRN 05/01/19 07/14/19 History famotidine 20 mg PO BID 05/01/19 07/14/19 History folic acid 1 mg PO DAILY 05/01/19 07/14/19 History menthol [Aspercreme Heat] 1 applic TOPICAL Q8H PRN 05/01/19 07/14/19 History midodrine 10 mg PO DAILY 05/01/19 07/14/19 History meclizine 25 mg tablet 25 mg PO TID PRN 06/08/19 07/14/19 History oxycodone-acetaminophen 5 mg-325 1 tab PO Q6H PRN 06/08/19 07/14/19 History mg tablet B complex-vitamin C-folic acid 1 tab PO DAILY 07/14/19 07/14/19 History [Renal Vitamin] eszopiclone [Lunesta] 2 mg PO HS 07/14/19 07/14/19 History omeprazole 40 mg PO DAILY 07/14/19 07/14/19 History sertraline 75 mg PO DAILY 07/14/19 07/14/19 History trazodone 150 mg PO HS 07/14/19 07/14/19 History Patient History Medical History Anemia of chronic disease including ESRD Atrial fibrillation warfarin stopped 12/2018 d/t bleed; [place] [facility] [place] diastolic heart failure -d/t hypertensive heart disease; [place] [facility] [place] Intraventricular hemorrhage large IPH/IVH s/p CHASSIS WIRER [place]unt [place] [facility] Thrombocytopenia Surgical History Acute thoracic aortic dissection Type I s/p 2008 repair [facility] [place] (arteriovenous fistula) L proximal radial basilic May 2019 [facility] [place] fistula occlusion thrombosed L radiocephalic October 2018 [facility] Hx of craniotomy for evacuation of IPH/IVH hematoma w/ EVD placement then s/p L frontal CHASSIS WIRER shunt 12/[place] [facility] S/P AVR (aortic valve replacement) and aortoplasty bioprosthetic AVR, root and arch aneurysm repair and coronary reimplantation May 2014 [facility] [place] Family History Other No pertinent family history in first degree relatives Denies family history of Myocardial infarction Social History Preferred Language: Tajik Communication Ability: Effective Warehouser Required: No Beliefs That Will Affect Care: None Current Living Situation: Jail Other Information That Helps Us Care for You: No Feels Safe at Home: Yes Safety Concerns: Feels Safe At This Time Smoking Status: Never smoker Hx Alcohol Use: No Hx Substance Use: No Review of Systems Review of Systems: All systems reviewed & are unremarkable except as noted in HPI & below Physical Exam Constitutional: well developed, + thin, + physical limitations and cooperative; no acute distress Eyes: EOM intact bilaterally ENMT: Ears: no external ear abnormality Nose: no external nose abnormality Mouth: + dry oral mucous membranes Neck: no nuchal rigidity Respiratory: normal respiratory effort Auscultation: + diminished lung sounds Gastrointestinal (Abdomen): Inspection/Auscultation: normal bowel sounds Percussion/Palpation: abdomen soft; abdomen nontender Musculoskeletal: Extremities: strength 5/5 throughout Skin: no rashes, warm and dry Neurologic: estevez, fluent speech, no tremor Results & Data Vital Signs (Past 12 Hours) Vital Signs Temp Pulse Resp BP Pulse Ox 07/15/19 11:07 36.5 C 83 20 114/68 96 07/15/19 07:46 36.5 C 80 22 116/71 96 07/15/19 03:18 36.9 C 82 22 100/55 L 98 Laboratory Results 07/15/19 06:25 07/15/19 06:25 Diagnostic Findings cxr Mild congestive heart failure with a small superimposed left basilar parenchymal infiltrate. head CT Findings: No significant change compared to the prior study. The ventriculostomy catheter as well as right occipital craniotomy changes are unaltered. Vasogenic edematous change of the right occipital lobe is stable. There is no evidence for hydrocephalus. Left lateral ventricle is decompressed which is unchanged from the prior study. There is no evidence for acute intracranial hemorrhage. Impression: Chronic and postoperative change. No acute or interval process as compared to the prior study. (1) CHF (congestive heart failure) Heart failure chronicity: acute on chronic Heart failure type: unspecified Qualified Code(s): I50.9 - Heart failure, unspecified
--- NOTE | 2019-07-15 14:09 | Hospitalist Progress Note ---
Date of Service July 15, 2019 Assessment & Plan (1) Lethargy: Pt is a 53yo with a PMHx significant for ESRD on dialysis MWF, COPD, CHF, anemia who presented with concern for lethargy and fatigue. Lethargy -Hx given of recent use of Lunesta. Significant improvement since discontinuation. -TSH within normal limits -Head CT unremarkable -Could also be possibly secondary to incomplete dialysis session on Wednesday (see below) -hold home nightly trazodone ESRD, on dialysis -Incomplete dialysis session on Sunday July 14, 2019 due to abnormal body movements -Cr currently increased from 2.29 to 4.75. K+ of 4.7 , Na 131, mag and phos -Nephrology consulted, appreciate recommendations: dialysis tomorrow, switch diet to renal/dialysis, 1.2 L fluid restriction Atrial Flutter -Pt currently in atrial flutter per tele monitoring, rate controlled -EKG 07/13, atrial fibrillation with LBBB, VR of 83, qtc 472 -Echo ordered and pending -continue home digoxin 125mcg PO twice a week -continue home metoprolol succinate 12.5mg PO BID Chronic CHF -Chest XR with mild congestion -Pt currently on 2L NC; given BP will hold off on diuresing. -Echo as above pending -Dialysis tomorrow 07/15 Anemia -H/H currently stable post transfusion; appears that Hgb of 7 was a lab error. -MCV >100; Folate and B12 levels for AM -continue daily folate -will continue to monitor with AM labs Left basilar infiltrate -Question of whether pneumonia as pt afebrile, WBC within normal limits -Received Zosyn and Vanc--will discontinue Hx of orthostatic hypotension -continue home midodrine 10mg daily COPD -continue home combivent inhaler Restless Leg syndrome -continue home ropinirole 0.5mg HS GERD -cont pepcid 20mg BID Gout -cont home allopurinol 100mg Depression/Anxiety -continue home Sertraline FEN/GI: Renal dialysis diet; 1200 fluid restriction DVT proph: SCDs CODE STATUS:Full Dispo: d/c after dialysis in AM Admission and Anticipated Discharge Date Admission Date: July 14, 2019 Supervising Physician Co-Signing Physician Notes Resident Physician Supervision Note: I independently interviewed and examined the patient and verified the duncan hist ory and physical, reviewed labs and image studies, discussed the case with the resident Dr. Siemon and agree with the findings and care plan. Subjective Pt seen this AM. Was alert and oriented sitting up in bed talking on the phone. Stated she was feeling better. Denies any headache, chest pain, SOB, palpitations. Review of Systems Review of Systems: All systems reviewed & are unremarkable except as noted in HPI & below Physical Exam Physical Exam: General: Alert, oriented. No acute distress, sitting up in bed. Skin: No noted rashes or bruises Psych: Appropriate mood and affect HEENT: NC/AT, clear rhinorrhea dripping from nose. Chest: Nontender to palpation. CV: Irregular rate and rhythm. No murmurs appreciated Resp: Breath sounds clear bilaterally but decreased on the back, no increased effort of breathing. No crackles/rhonchi/rales. Abdomen: Soft, nontender, nondistended. No guarding. No organomegaly appreciated. Extremities: Trace edema in lower extremities bilaterally. Results & Data ([facility]) Vital Signs (Past 12 Hours) Vital Signs Temp Pulse Resp BP Pulse Ox 07/15/19 11:07 36.5 C 83 20 114/68 96 07/15/19 07:46 36.5 C 80 22 116/71 96 07/15/19 03:18 36.9 C 82 22 100/55 L 98 Resident Activity Tracking Resident Involvement: Resident Care Provided Care Provided: Adult Hospital Medicine
[2019-07-15] MEDS: ROPINIROLE HCL 0.25 MG TABLET PO SCH (20:34)
[2019-07-15 23:11] LABS: Influenza A virus by PCR Neg for Influ A (Neg); Influenza B virus by PCR Neg for Influ B (Neg)
[2019-07-16] MEDS: PIPERACILLIN/TAZOBACTAM 3.375 GM in DEXTROSE 5% 100 ML IV SCH (01:28)
[2019-07-16] MEDS: BACITRACIN OINT 15 GM TUBE TOP SCH ×3 (04:21→20:59)
[2019-07-16 08:03] LABS: Anisocytosis Present; Basophils # (auto) 0.03 K/uL (0-0.2); Basophils % (auto) 0.4 %; Eosinophils # (auto) 0.15 K/uL (0-0.5); Eosinophils % (auto) 2.1 %; Hematocrit (blood only) 39.4 % (37-47); Hemoglobin 11.4 g/dL (12.0-16.0); Immature Granulocytes # (auto) 0.04 K/uL (0.00-0.02); Immature Granulocytes % (auto) 0.6 %; Lymphocytes # (auto) 0.57 K/uL (1.2-3.4); Mean Corpuscular Hemoglobin 28.5 pg (25-34); Mean Corpuscular Hgb Conc 28.9 g/dL (32-36); Mean Corpuscular Volume 98.5 fL (80-100); Mean Platelet Volume 12.3 fL (7.4-10.4); Monocytes # (auto) 0.76 K/uL (0.11-0.59); Monocytes % (auto) 10.6 %; Neutrophils # (auto) 5.59 K/uL (1.4-6.5); Neutrophils % (auto) 78.3 %; Nucleated RBC # (auto) 0.05 K/uL (0-0); Nucleated RBC % (auto) 0.7 %; Platelet Count 92 K/uL (130-400); Platelet Estimate Decreased (Normal); RDW Coefficient of Variation 17.1 % (11.5-14.5); RDW Standard Deviation 61.8 fL (36.4-46.3); White Blood Count 7.14 K/uL (4.8-10.8)
[2019-07-16 08:37] LABS: Calcium 9.3 mg/dl (8.5-10.1); Creatinine Clr Calc Pharmacy 10.5 ml/min; Est GFR (African American) 8.3; Est GFR (Non-African American) 7.1; Potassium 4.3 mmol/L (3.5-5.1)
[2019-07-16] MEDS ORDERED: SODIUM CHLORIDE 0.9% 1000ML 1,000 ML IV PRN (08:51)
[2019-07-16] MEDS ORDERED: HEPARIN SOD (PORCINE) 1000 UNIT/ML 10 ML VIAL IV ONE (08:51)
[2019-07-16] MEDS: CALCIUM ACETATE 667 MG CAP/TAB PO SCH ×3 (09:18→18:04)
[2019-07-16] MEDS: FOLIC ACID 1 MG TAB PO SCH (09:19)
[2019-07-16] MEDS: SERTRALINE HCL 50 MG TABLET PO SCH (09:19)
[2019-07-16] MEDS: allopurinoL 100 MG TAB PO SCH (09:19)
[2019-07-16] MEDS: FAMOTIDINE 20 MG TAB PO SCH ×2 (09:19→20:59)
[2019-07-16] MEDS: MIDODRINE HCL 10 MG TAB PO SCH (09:19)
[2019-07-16 09:35] LABS: Folate (Folic Acid) > 24.00 ng/ml (>5.38); Vitamin B12 1235 pg/ml (211-911)
[2019-07-16 09:44] LABS: Hepatitis B Surface Ab Quant < 3.10 mIU/mL (>or=10mIU/mL Immune); Hepatitis B Surface Antibody Non-Immune
[2019-07-16 09:55] LABS: Hepatitis B Surface Antigen Neg (Neg)
[2019-07-16] MEDS: HEPARIN SOD (PORCINE) 1000 UNIT/ML 10 ML VIAL IV SCH ×2 (11:30→15:32)
--- NOTE | 2019-07-16 13:12 | Pharmacy Report ---
Pharmacy Abx Dose Short Note - Date of Service July 16, 2019 - Assessment & Plan Assessment/Plan 53 year old F receiving Vancomycin dosed by level for treatment of pulmonary source Day # 2 of antimicrobial therapy. MRSA swab +ve Laboratory Tests 07/16/19 06:57 Random Vancomycin 19.4 * Random level this morning of 19.4 is therapeutic after receiving 1500mg (20mg/kg) loading dose yesterday. * Patient started dialysis today at ~1030, based on Pre-HD level will plan to provide 250mg IV x1 supplemental dose around 1800 this evening. * Estimate this will achieve a level 18-19 mg/dL. * Random level ordered for tomorrow morning in case patient is to receive HD again tomorrow. Pharmacy will continue to follow and will adjust dose/frequency as necessary. Thank you.
[2019-07-16] MEDS: METOPROLOL SUCC 25MG EXT REL TAB PO SCH ×2 (13:54→20:58)
--- NOTE | 2019-07-16 14:22 | Dialysis Progress Note ---
Date of Service July 16, 2019 Assessment & Plan (1) ESRD (end stage renal disease): MWF HD chronically; tx shortened on Thursday 07/13 -2hrs HD today to maintain optimal volume status >> pt walks fine line between volume overload and chronic hypotension; after this from renal standpoint she c ould be d/c -next HD on 07/16 here or at [facility] -using dialysis catheter as access b/c L proximal AVF created May 2019 at [facility] [place] is for fistulagram and transposition 07/20/19 Dr Oconnell (2) CHF (congestive heart failure): -gentle hd as above -cont 1.2L fluid limit (3) Thrombocytopenia: her plts run consistently 80-110s for past several years; no formal diagnosis but stable (4) Lethargy: ? if relation to low K on presentation (2.3; up to 4.7 this am >> though again this lab was drawn just after coming off dialysis and may not have been accurate. given her complex neurosurgical hx and recent ear complaints, recommend observation -- has not recurred (5) Anemia: 7.6 reading on initial draw 07/13 apparently an error versus again inaccurate d/t not yet fluid shifted/reequilibrated so soon after dialysis >> hgb 10.7 on recheck 3 hr later and with no intervention. Has remained in 10-11 range since. -stable; f/u at OUTPT dialysis (6) Malnutrition: albumin 1.7 >> will follow up at dialysis Subjective seen on HD at 1145 approx. tolerating treatment; on track for 1L UF; some confusion today (unsure at start of tx that she was in hospital; denies sob, n/v, worse fatigue Review of Systems Review of Systems: All systems reviewed & are unremarkable except as noted in HPI & below Physical Exam Constitutional: well developed, + thin, + physical limitations and cooperat ashley; no acute distress Eyes: EOM intact bilaterally ENMT: Ears: no external ear abnormality Nose: no external nose abnormality Mouth: + dry oral mucous membranes Neck: no nuchal rigidity Respiratory: + labored breathing (w/ speech; at her baseline) and able to speak in complete sentences Auscultation: + diminished lung sounds and + crackles Cardiovascular: Rate/Rhythm: regular rate and regular rhythm Heart Sounds: + murmur Extremities: + edema (2+ dependent; trace peripheral) Gastrointestinal (Abdomen): Inspection/Auscultation: normal bowel sounds Percussion/Palpation: abdomen soft; abdomen nontender Musculoskeletal: Extremities: strength 5/5 throughout Skin: no rashes, warm and dry Neurologic: estevez, fluent speech, no tremor Psychiatric: Orientation: alert, oriented to person and oriented to time Speech: normal rate/rhythm/volume of speech Affect: euthymic affect Results & Data Vital Signs (Past 12 Hours) Vital Signs Temp Pulse Pulse Pulse Resp BP BP 07/16/19 13:56 118/68 07/16/19 12:20 93 H 96/57 L 07/16/19 12:00 96 H 105/62 07/16/19 11:40 101 H 109/70 07/16/19 11:20 97 H 101/64 07/16/19 11:00 80 104/71 07/16/19 10:40 100 H 115/74 07/16/19 09:37 36.7 C 80 07/16/19 07:42 36.8 C 86 18 124/78 07/16/19 03:24 36.9 C 80 20 108/72 Pulse Ox 07/16/19 13:56 07/16/19 12:20 07/16/19 12:00 07/16/19 11:40 07/16/19 11:20 07/16/19 11:00 07/16/19 10:40 07/16/19 09:37 07/16/19 07:42 96 07/16/19 03:24 97 Laboratory Results reviewed (1) CHF (congestive heart failure) Heart failure type: unspecified Heart failure chronicity: acute on chronic Qualified Code(s): I50.9 - Heart failure, unspecified
--- NOTE | 2019-07-16 15:06 | Hospitalist Progress Note ---
Date of Service July 16, 2019 Assessment & Plan (1) Lethargy: Pt is a 53yo with a PMHx significant for ESRD on dialysis MWF, COPD, CHF, anemia who presented with concern for lethargy and fatigue. Pt stable for discharge, however awaiting placement at [facility]. Lethargy -Hx given of recent use of Lunesta. Significant improvement since discontinuation. -TSH within normal limits -Head CT unremarkable -Could also be possibly secondary to incomplete dialysis session on Wednesday (see below) -hold home nightly trazodone -will put in for PT/OT Delirium -from hospital stay. no sign of infection - supportive care - avoid sedating meds. ESRD, on dialysis -Incomplete dialysis session on Sunday July 14, 2019 due to abnormal body movements. -Has since had dialysis session while hospitalized on 07/16/2019 -continue to monitor Cr function, electrolytes, volume status -Nephrology consulted, appreciate recommendations. Atrial Flutter -Pt currently in atrial flutter per tele monitoring, rate controlled -EKG 07/13, atrial fibrillation with LBBB, VR of 83, qtc 472 -Echo ordered and pending -continue home digoxin 125mcg PO twice a week -continue home metoprolol succinate 12.5mg PO BID Chronic CHF -Continue dialysis sessions as scheduled Anemia -H/H currently stable post transfusion; appears that Hgb of 7 on admission was a lab error. -MCV >100; Folate level normal and B12 levels elevated -continue daily folate -will continue to monitor with AM labs Left basilar infiltrate -Question of whether pneumonia as pt afebrile, WBC within normal limits -Received Zosyn and Vanc--will discontinue Hx of orthostatic hypotension -continue home midodrine 10mg daily COPD -continue home combivent inhaler Restless Leg syndrome -continue home ropinirole 0.5mg HS GERD -cont pepcid 20mg BID Gout -cont home allopurinol 100mg Depression/Anxiety -continue home Sertraline FEN/GI: Renal dialysis diet; 1200 fluid restriction DVT proph: SCDs CODE STATUS:Full Dispo: d/c to [facility] pending auth. Admission and Anticipated Discharge Date Admission Date: July 14, 2019 Supervising Physician Co-Signing Physician Notes Resident Physician Supervision Note: I independently interviewed and examined the patient and verified the duncan history and physical, reviewed labs and image studies, discussed the case with the resident Dr. Simeon and agree with the findings and care plan. Subjective Pt seen this AM. Nursing stated she seemed a bit down, on speaking to her she states she misses her family and is a bit tired. No new complaints this AM. Denies headache, SOB, chest pain, N/V, abdominal pain. Review of Systems Review of Systems: All systems reviewed & are unremarkable except as noted in HPI & below Physical Exam Physical Exam: General: Alert, sitting up in bed. depressed mood Skin: No noted rashes or bruises Neuro: No gross deficits HEENT: NC/AT Chest: Nontender to palpation. CV: Irregularly irregular rate. No murmurs appreciated Resp: Breath sounds clear bilaterally, no increased effort of breathing. No crackles/rhonchi/rales. Abdomen: Soft, nontender, nondistended. Extremities: No edema in lower extremities bilaterally. Results & Data ([facility]) Vital Signs (Past 12 Hours) Vital Signs Temp Pulse Pulse Pulse Resp BP BP 07/16/19 13:56 118/68 07/16/19 12:20 93 H 96/57 L 07/16/19 12:00 96 H 105/62 07/16/19 11:40 101 H 109/70 07/16/19 11:20 97 H 101/64 07/16/19 11:00 80 104/71 07/16/19 10:40 100 H 115/74 07/16/19 09:37 36.7 C 80 07/16/19 07:42 36.8 C 86 18 124/78 07/16/19 03:24 36.9 C 80 20 108/72 Pulse Ox 07/16/19 13:56 07/16/19 12:20 07/16/19 12:00 07/16/19 11:40 07/16/19 11:20 07/16/19 11:00 07/16/19 10:40 07/16/19 09:37 07/16/19 07:42 96 07/16/19 03:24 97 Resident Activity Tracking Resident Involvement: Resident Care Provided Care Provided: Adult Hospital Medicine
[2019-07-16] MEDS: ROPINIROLE HCL 0.25 MG TABLET PO SCH (20:58)
[2019-07-17] MEDS: BACITRACIN OINT 15 GM TUBE TOP SCH ×2 (05:18→12:49)
[2019-07-17 07:59] LABS: Hematocrit (blood only) 39.5 % (37-47); Hemoglobin 11.6 g/dL (12.0-16.0); Mean Corpuscular Hemoglobin 29.1 pg (25-34); Mean Corpuscular Hgb Conc 29.4 g/dL (32-36); Mean Corpuscular Volume 99.2 fL (80-100); Nucleated RBC # (auto) 0.07 K/uL (0-0); Nucleated RBC % (auto) 0.8 %; RDW Coefficient of Variation 17.1 % (11.5-14.5); RDW Standard Deviation 61.7 fL (36.4-46.3); Red Blood Count 3.98 M/uL (4.2-5.4); White Blood Count 9.09 K/uL (4.8-10.8)
[2019-07-17] MEDS ORDERED: HEPARIN SOD (PORCINE) 1000 UNIT/ML 10 ML VIAL IV SCH (08:00)
[2019-07-17 08:05] LABS: Mean Platelet Volume 11.5 fL (7.4-10.4); Platelet Count 91 K/uL (130-400)
[2019-07-17] MEDS ORDERED: SODIUM CHLORIDE 0.9% 1000ML 1,000 ML IV PRN (08:18)
[2019-07-17 08:33] LABS: Basophils # (auto) 0.02 K/uL (0-0.2); Basophils % (auto) 0.2 %; Eosinophils # (auto) 0.09 K/uL (0-0.5); Hypochromasia Present; Immature Granulocytes # (auto) 0.05 K/uL (0.00-0.02); Immature Granulocytes % (auto) 0.6 %; Lymphocytes # (auto) 0.74 K/uL (1.2-3.4); Lymphocytes % (auto) 8.1 %; Monocytes # (auto) 0.59 K/uL (0.11-0.59); Monocytes % (auto) 6.5 %; Neutrophils % (auto) 83.6 %; Ovalocytes 1+; Polychromasia 1+
[2019-07-17] MEDS ORDERED: PERFLUTREN LIPID MICROSPHERE (DEFINITY) IV ONE (08:42)
--- NOTE | 2019-07-17 08:45 | Hospitalist Progress Note ---
Date of Service July 17, 2019 Assessment & Plan (1) Lethargy: Pt is a 53yo with a PMHx significant for ESRD on dialysis MWF, COPD, CHF, anemia who presented with concern for lethargy and fatigue. Pt stable for discharge, however awaiting placement at [facility]. Lethargy/AMS 2/2 polypharmacy vs dialysis - pt on Trazodone, hydoxyzine, and lunesta VERIFICATION LEAD - Significant improvement since discontinuation of lunesta -TSH within normal limits -Head CT unremarkable -hold home qHS trazodone -PT/OT eval pending ESRD, on dialysis. M/W/F -Incomplete dialysis session on Sunday July 14, 2019 due to abnormal body movements. -Has since had dialysis session while hospitalized on 07/16/2019 - Na 132, K 4.3, Cr 6.18 today. - Will need dialysis today either in hospital or via [facility] if d/nica -Nephrology consulted, appreciate recommendations. Atrial Flutter -Pt currently in atrial flutter per tele monitoring, rate controlled -EKG 07/13, atrial fibrillation with LBBB, VR of 83, qtc 472 -Echo pending -continue home digoxin 125mcg PO twice a week -continue home metoprolol succinate 12.5mg PO BID Chronic CHF -Chest XR with mild congestion -Pt currently on 2L NC -Echo as above -Continue dialysis sessions as scheduled Anemia -H/H currently stable post transfusion; appears that Hgb of 7 on admission was in error. -Folate level normal and B12 levels appropriately elevated w/ supplementation -continue daily folate -CBC daily Left basilar infiltrate -Question of whether pneumonia as pt afebrile, WBC within normal limits -Vanc/Zosyn on admission, dc/ed. Pt stable, afebrile, no leukocytosis Hx of orthostatic hypotension -continue home midodrine 10mg daily COPD -continue home combivent inhaler Restless Leg syndrome -continue home ropinirole 0.5mg HS GERD -cont pepcid 20mg BID Gout -cont home allopurinol 100mg Depression/Anxiety -continue home Sertraline FEN/GI: Renal dialysis diet; 1200 fluid restriction DVT proph: SCDs CODE STATUS:Full Dispo: d/c to [facility] pending auth. Admission and Anticipated Discharge Date Admission Date: July 14, 2019 Results & Data ([facility]) Vital Signs (Past 12 Hours) Vital Signs Temp Pulse Pulse Resp BP Pulse Ox 07/17/19 08:01 36.9 C 103 H 18 97 07/17/19 05:29 146/82 H 07/16/19 23:00 36.9 C 83 18 100/65 95 07/16/19 20:36 85 119/75
[2019-07-17] MEDS: METOPROLOL SUCC 25MG EXT REL TAB PO SCH (08:50)
[2019-07-17 08:57] LABS: BUN Creatinine Ratio 6.5 (10-20); Calcium 9.3 mg/dl (8.5-10.1); Creatinine Clr Calc Pharmacy 9.5 ml/min; Est GFR (Non-African American) 6.9
[2019-07-17] MEDS ORDERED: DIGOXIN 0.125 MG TAB PO SCH (09:00)
[2019-07-17] MEDS: CALCIUM ACETATE 667 MG CAP/TAB PO SCH ×3 (09:31→16:39)
[2019-07-17] MEDS: HEPARIN SOD (PORCINE) 1000 UNIT/ML 10 ML VIAL IV SCH ×3 (09:45→13:44)
--- NOTE | 2019-07-17 10:18 | Discharge Summary ---
Date of Service July 17, 2019 Admission HPI Per Admitting Provider 53 y/o F who was sent to the ED after having some sort of shaking episode during her routing HD this afternoon. There was some concern that this was a seizure. Family present state that pt has been having ongoing insomnia issues recently. They have tried several medications for this. She was started on lunesta 5 days ago. Family noted that pt was very lethargic 2 days ago and requested that the lunesta be stopped. Family states that pt was still getting this medication and has become more lethargic during this time. Pt has no hx of seizures. Family states that since starting the lunesta, pt has become more confused overall. Pt denies fever, SOB, chest pain, abd pain, n/v/c/d, LE pain or swelling. Pt was also not able to finish HD on Wednesday due to feeling generally unwell. Admission Exam Per Admitting Provider Constitutional: WD/WN, vitals as above Eyes: normal visual fung by confrontation and + anicteric sclerae Neck: normal visual inspection and trachea midline Respiratory: normal respiratory effort; no respiratory distress and no labored breathing Auscultation: + crackles; no wheezes Cardiovascular: Rate/Rhythm: regular rate; + abnormal rhythm Gastrointestinal (Abdomen): Inspection/Auscultation: abdomen not distended Percussion/Palpation: abdomen soft; abdomen nontender Musculoskeletal: Head/Neck/Chest: normocephalic and head atraumatic negative for edema, peripheral pulses intact Skin: no rashes, warm and dry Neurologic: awake; not confused Speech / Cognition: normal speech Psychiatric: A+Ox3, euthymic affect Pt opens eyes to answer questions, but head droops between questions and pt appears overall lethargic Principal Diagnosis Metabolic Encephalopathy 2/2 Lunesta Discharge Exam General: A&O to building and name, pt reports does not normally remember the date. NAD. Cooperative. Undergoing dialysis. HEENT: Atraumatic, normocephalic. Pulm: CTAB A&P. -wheezes, -rales, -rhonchi. Symmetrical chest rise. No increase work of breathing. No respiratory distress. Cardiac: irregularly irregular, -mrg. Radial pulses intact and symmetrical. Abdominal: Nondistended, soft. BS present. Discharge Data Allergies Allergy/AdvReac Type Severity Reaction Status Date / Time morphine Allergy Intermediate Photosensit Verified 07/14/19 17:06 ivity nitroglycerin Allergy Mild Nausea Verified 07/14/19 17:06 Consultations 07/14/19 17:41 ED Decision to Admit Stat 07/14/19 20:05 Consult Case Management - Discharge Planning Routine 07/15/19 11:54 Consult Nephrology Routine Ordered Studies 07/14/19 16:16 CT head/brain wo con Stat Hospital Course (1) Lethargy: Carina Preston is a 53yo F with a PMHx significant for ESRD on dialysis MWF, COPD, CHF, anemia who presented with concern for lethargy and fatigue. Lethargy/AMS 2/2 polypharmacy vs dialysis On admission patient was noted be be lethargic, confused, and had reports of unusual movements during her dialysis session which was terminated early. Of note, she was on trazodone, hydroxyzine, and lunesta prior to admission. Lunesta and trazodone were held. CT-H showed no acute findings. She improved with lunes ta and trazodone held and returned to her normal baseline level of cognition. Dialysis was continued as below. She was mentating well at time of discharge, and was discharged to [facility] for further care following completion of dialysis on 07/16. Her AMS was ultimately felt to be mostly likely due to lunesta. Anuric ESRD, on dialysis. M/W/F Carina has a history of ESRD on MWF dialysis. She had an incomplete dialysis session on Sunday July 14, 2019 due to abnormal body movements. Following hospitalization and holding of medications as above she had a dialysis session while hospitalized on 07/16/2019. On day her discharge she had Na 132, K 4.3, Cr 6.18 today. Nephrology was consulted, patient was discharged to continue her normal MWF dialysis regimen. She tolerated dialysis well and was discharged to continue her [employer] dialysis schedule. Atrial Flutter Carina has a history of atrial flutter which was noted on telemetry. She was continued on her home doses of digoxin and metoprolol. SHe did not experience RVR during admission. She is not on anticoagulation at baseline. She reports she was on anticoagulation previously, but does not remember why this was stopped. She was d/c to be reevaluated by her outpatient provider as a assisted anticoagulation candidate given her hx of atrial flutter/fib. Chronic CHF Carina has chronic CHR at baseline. Chest XR with mild congestion. She required 2L NC during admission. She recieved dialysis as above for fluid management. No AoC CHF decompensation, patient improved clinicallyi following dialysis. Anemia Carina has a history of anemia. On admission she was foudn to have a Hgb of 7.6 from 9.8 She recieved a blood transfusion with overcorrection and stabilization of her hgb to 10.7-11.8. Is was felt that the hgb of 7.6 was likely in error or showed an artificially low Hgb. Folate level normal and B12 levels appropriately elevated w/ supplementation. She was continued on daily folate and showed no signs of bleeding. Left basilar infiltrate On initial CXR pt was found to have a questionable L basilar infiltrate suspicious for fluid vs PNA. Carina was afebrile with WBC within normal limits. She recieved empiric Vanc/Zosyn on admission which was discontinued.She remained stable, afebrile, and without leukocytosis Hx of orthostatic hypotension Continued on home midodrine 10mg daily COPD Continued on home combivent inhaler Restless Leg syndrome Continued on home ropinirole 0.5mg HS GERD Continued on pepcid 20mg BID Gout Continued on home allopurinol 100mg. No signs of a gout flare during admission. Depression/Anxiety Contineud on home Sertraline FEN/GI: She was maintained on a renal dialysis diet; 1200 fluid restriction during admission. DVT proph: SCDs Total Time Total Time Spent Total Time Spent (In Minutes): <30 Discharge Plan Discharge Items Patient Disposition: Trans Resident Long-Term Care Reason For Visit: ANEMIA,HYPOKALEMIA Discharge Diagnosis: Lethargy, Fatigue Activity: Per Instructions section Non-emergency contact: Primary Care Provider Call non-emergency contact if: your symptoms worsen and you have a fever Follow-up/Referrals: Ozzy Madison [Primary Care Provider] - Diet: Dialysis Renal Addtl Attending Provider Instructions: You were seen in the hospital for confusion, altered mental status, and concern from dialysis for altered movements; per your family you were very sleepy and 'just not yourself.' Your symptoms improved during your hospitalization. Your home Lunesta medication may have contributed to this episode and has been stopped as below. You have been discharged to [facility] for further care and will resume your MWF dialysis schedule. Please STOP taking lunesta. This medication likely contributed to your episode of confusion and sleepiness. Please STOP taking meclizine at this time. While it may be safe to resume this medication, it may also contribute to confusion and sleepiness. Please discuss this medication with your primary care doctor and he or she will advise you if/when it is safe to resume. You reported you had been on blood thinners in the past, but were unclear of why they were stopped. Give your aflutter/afib you should be considered for assisted anticoagulation. This will be followed up by your primary care provider. Please use trazodone with caution. You have been prescribed sleep. This medication may cause drowsiness and contribute to episodes like the one which caused you to be admitted to the hospital. Being drowsy/sleepy may also contribute/cause you to fall which can be dangerous or even life threatening. A followup appointment is being made for you with your primary care provider at [facility]. They will discuss this appointment with you when you arrive. If you have any questions or concerns regarding this appointment, please call them at or discuss the appointment with their staff. You should be seen by the [facility] physician within one week. If you develop any new, worsening, or recurrent symptoms including fever, chills, sweats, chest pain, chest pressure, difficulty breathing, passing our or nearly passing out, rash, worsening pain, or other new/concerning symptoms please contact the [facility] physician, or call 911 for evaluation in the emergency department if you are very concerned. Pending Studies at Discharge: No Stand-Alone Forms: My Mobile[employer], Smoking Cessation Skilled Items Patient informed of condition?: Yes DNR: No Discharge Level of Care: Other Communicable Disease: No Discharge Prognosis: Stable Lines: None Urinary Catheter: No Medications and DC Order Prescriptions: Continued oxycodone-acetaminophen 5-325 mg tablet 1 tab PO Q6H PRN (Reason: Pain) RF: 0 allopurinol 100 mg Tablet 100 mg PO DAILY RF: 0 digoxin 125 mcg Tablet 125 mcg PO 2XWK RF: 0 ropinirole 0.5 mg Tablet 0.5 mg PO HS RF: 0 calcium acetate(phosphat bind) 667 mg Tablet 1,334 mg PO TIDM RF: 0 metoprolol succinate 25 mg Tablet Extended Release 24 Hr 12.5 mg PO BID RF: 0 acetaminophen 325 mg Tablet 650 mg PO Q6H MDD 3g/24hr PRN (Reason: temp>101) RF: 0 acetaminophen 325 mg Tablet 650 mg PO Q6H MDD 3g/24hr PRN (Reason: Pain) RF: 0 ondansetron HCl [Zofran] 4 mg Tablet 4 mg PO Q6H PRN (Reason: Nausea) RF: 0 Combivent Respimat 20-100 mcg/actuation Mist 2 puff INHALATION Q4 PRN (Reason: sob) RF: 0 Aspercreme Heat 10 % Gel 1 applic TOPICAL Q8H PRN (Reason: Pain) RF: 0 aspirin 81 mg Tablet,Delayed Release (Dr/Ec) 81 mg PO DAILY RF: 0 bacitracin 500 unit/gram Ointment 1 applic TOPICAL Q8H RF: 0 midodrine 10 mg Tablet 10 mg PO DAILY RF: 0 folic acid 1 mg Tablet 1 mg PO DAILY RF: 0 famotidine 20 mg Tablet 20 mg PO BID RF: 0 bisacodyl [Dulcolax (bisacodyl)] 10 mg Suppository 10 mg [place] DAILY PRN (Reason: Constipation) RF: 0 omeprazole 40 mg Capsule,Delayed Release(Dr/Ec) 40 mg PO DAILY RF: 0 trazodone 150 mg Tablet 150 mg PO HS RF: 0 Renal Vitamin 0.8 mg Tablet 1 tab PO DAILY RF: 0 sertraline 50 mg Tablet 75 mg PO DAILY RF: 0 Discontinued meclizine [Medi-Meclizine] 25 mg tablet 25 mg PO TID PRN (Reason: Motion Sickness) RF: 0 eszopiclone [Lunesta] 2 mg Tablet 2 mg PO HS RF: 0 Discharge Orders: Discharge Order (Routine); Ordered 07/17/19 Ordered By: Manny Mendez Admission Data Admit Date/Time: 07/14/19 18:39 Attending Provider: Leon Gamble Admit Provider: Mary Gupta Primary Care Provider: Ozzy Madison Other Providers: Mary Gupta ; Maryann Roger ; Tara Mcfarlane Other Interventions: Discharge Summary Assessment (RN) Last Done: 07/17/19 15:51 Supervising Physician Co-Signing Physician Notes I personally examined the patient and verified all duncan points of history and exam, discussed case, and agree with decision making with Dr Mendez. feeling better would like to get back to [facility]. doesn't ever want lunesta again. she's not sure why she's not on anticoagulant vitals noted nad heent nc at mmm breathing unlabored cardio rate controlled but irreg irreg no focal neuro deficits AMS - seems to have been predominantly med reaction to lunesta - stopped. doing better, safe for return to snf afib - pt not certain why she's not on anticoagulation - we can see no clear contraindication but also obviously don't have a longstanding/depth of knowledge about her situation -- would ask that PCP review the situation and if there is no contraindication, give consideration to stroke proph medications stable for return to SNF, otherwise as above Resident Activity Tracking Resident Involvement: Resident Care Provided Care Provided: Adult Hospital Medicine
[2019-07-17] MEDS: FOLIC ACID 1 MG TAB PO SCH (10:36)
[2019-07-17] MEDS: SERTRALINE HCL 50 MG TABLET PO SCH (10:36)
[2019-07-17] MEDS: FAMOTIDINE 20 MG TAB PO SCH (10:36)
[2019-07-17] MEDS: MIDODRINE HCL 10 MG TAB PO SCH (11:06)
[2019-07-17] MEDS: allopurinoL 100 MG TAB PO SCH (11:06)
--- NOTE | 2019-07-17 16:34 | XCELERA ---
[id number] \\[email or web address]\[id number]
--- NOTE | 2019-07-17 18:08 | Dialysis Progress Note ---
Date of Service July 17, 2019 Assessment & Plan (1) ESRD (end stage renal disease): MWF HD chronically; tx shortened on Thursday 07/13 -starting HD routine tx today and tolerating -next HD as outpt or inpt depending on clinical status 07/18 -using dialysis catheter as access b/c L proximal AVF created May 2019 at [facility] is for fistulagram and transposition 07/20/19 Dr Oconnell (2) CHF (congestive heart failure): -gentle hd as above -cont 1.2L fluid limit (3) Thrombocytopenia: her plts run consistently 80-110s for past several years; no formal diagnosis but stable (4) Lethargy: ? if relation to low K on presentation (2.3; up to 4.7; now 4.0 this am) >> though again this lab was drawn just after coming off dialysis and may not have been accurate. given her complex neurosurgical hx and recent ear complaints, recommend observation -- has not recurred; follow as OP (5) Anemia: -stable; f/u at OUTPT dialysis (6) Malnutrition: albumin 1.7 >> will follow up at dialysis Subjective pt seen on dialysis this am at 0900 as she was starting treatment. she did not have complaints of shortness of breath or uncontrolled pain. repeats herself to me today about daughter's birthday. Review of Systems Review of Systems: All systems reviewed & are unremarkable except as noted in HPI & below Physical Exam Constitutional: well developed, + thin, + physical limitations and cooperativ e; no acute distress sitting in bed on tx on 2L02NC Eyes: EOM intact bilaterally ENMT: Ears: no external ear abnormality Nose: no external nose abnormality Mouth: + dry oral mucous membranes Neck: no nuchal rigidity Respiratory: + labored breathing (w/ speech; at her baseline) and able to speak in complete sentences Auscultation: + diminished lung sounds Cardiovascular: Rate/Rhythm: regular rate and regular rhythm Heart Sounds: + murmur Extremities: + edema (2+ dependent; trace peripheral) Gastrointestinal (Abdomen): Inspection/Auscultation: normal bowel sounds Percussion/Palpation: abdomen soft; abdomen nontender Musculoskeletal: Extremities: strength 5/5 throughout Skin: no rashes, warm and dry Psychiatric: Orientation: alert, oriented to person and oriented to time Speech: normal rate/rhythm/volume of speech Affect: euthymic affect Results & Data Vital Signs (Past 12 Hours) Vital Signs Temp Pulse Pulse Pulse Resp BP BP 07/17/19 15:51 36.5 C 89 103 H 18 113/74 07/17/19 15:46 36.5 C 103 H 18 113/74 07/17/19 13:30 36.3 C L 89 114/60 07/17/19 13:00 72 116/61 07/17/19 12:40 96 H 105/64 07/17/19 12:20 117 H 105/64 07/17/19 12:00 83 106/67 07/17/19 11:40 88 125/82 07/17/19 11:20 81 105/65 07/17/19 11:00 90 99/64 L 07/17/19 10:40 75 92/65 L 07/17/19 10:20 86 99/44 L 07/17/19 10:00 91 H 110/56 L 07/17/19 09:40 100 H 114/67 07/17/19 09:20 100 H 114/65 07/17/19 09:07 37.3 C 108 H 07/17/19 08:01 36.9 C 103 H 18 Pulse Ox 07/17/19 15:51 97 07/17/19 15:46 97 07/17/19 13:30 07/17/19 13:00 07/17/19 12:40 07/17/19 12:20 07/17/19 12:00 07/17/19 11:40 07/17/19 11:20 07/17/19 11:00 07/17/19 10:40 07/17/19 10:20 07/17/19 10:00 07/17/19 09:40 07/17/19 09:20 07/17/19 09:07 07/17/19 08:01 97 Laboratory Results 07/17/19 07:42 07/17/19 07:42 (1) CHF (congestive heart failure) Heart failure type: unspecified Heart failure chronicity: acute on chronic Qualified Code(s): I50.9 - Heart failure, unspecified
== END 2019-07-17 18:21 | DRG 91 ==
LOC: ED 15:41 → 2E 18:39 → SUATTDRO 18:39 → 2E 19:17 → 3N 07-16 17:45

== ENCOUNTER 2019-09-25 11:40 | Inpatient (IN) ==
--- NOTE | 2019-09-25 12:05 | Emergency Department Note ---
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 She was sent to dialysis from [facility] where she resides and was found to be confused. Heart side notes that she has been confused since yesterday morning when she was given a Percocet orally. They gradually titrated up her oxygen and she was found to be hypoxic. She was eventually placed on a nonrebreather and pulse ox trended up to 94%. They called EMS and patient was transported to [facility]'s ER. She had increasing agitation while at dialysis. She did not complete her full treatment. History is limited secondary to mentation. Per Odalys from [facility] she notes that the patient is a full code. Yesterday she received Percocet and following that she has been confused. She was sitting and eating lunch yesterday with nothing in front of her and was intermittently lucid. She notes that she has not very familiar with her but knows that she is normally awake alert talking and interacting appropriately. ROS: Review of systems is limited secondary to mentation PAST MEDICAL HISTORY:See Below PAST SURGICAL HISTORY:See Below FAMILY HISTORY:See Below SOCIAL HISTORY:See Below HOME MEDICATIONS:See Below ALLERGIES:See Below VITALS:See Below PHYSICAL EXAMINATION: GENERAL: Sitting up in bed, ill-appearing on 15 L nonrebreather, pulling off the facemask intermittently EYE EXAM: normal conjunctiva. PERRL and EOM's grossly intact. OROPHARYNX: no exudate, no erythema, lips, buccal mucosa, and tongue normal and mucous membranes are moist NECK: supple, no nuchal rigidity, no adenopathy, non-tender CHEST: Old midline sternal incision LUNGS: Rhonchi at the bases. Normal chest wall mechanics HEART: Tachycardic and irregularly irregular, S1 normal and S2 normal ABDOMEN: abdomen soft, non-tender, normo-active bowel sounds, no masses, no rebound or guarding. BACK: Back is symmetrical on inspection and there is no deformity, no midline tenderness, no CVA tenderness. SKIN: no rashes and no bruising UPPER EXTREMITIES: upper extremities are grossly normal. LOWER EXTREMITIES: mild pitting edema NEURO EXAM: Awakens to voice but falls asleep quickly moves all extremities, nonfocal. Oriented to person but not place or year. MEDICAL DECISION MAKING: Patient is a 54-year-old female on dialysis that presents to the ER for altered mental status and hypoxia. Upon arrival IV was established blood work was obtained. She is talking but only oriented to person. Moving all extremities nonfocal. Labs show no significant leukocytosis or anemia. INR at 1.7. VBG with a pH is 7.3 and CO2 of 70. BMP was remarkable for creatinine at 5.4 and a dialysis patient this is expected. Lactate was slightly elevated at 2. LFTs and bilirubin was unremarkable. Troponin was detectable at 0.076 pretty consistent with previous visits. Digoxin was low. Influenza was negative. Patient was placed on a Cardizem drip and given a bolus of Cardizem. Heart rate trended down from 140s to 110. EKG did show A. fib RVR. Patient was on a nonrebreather and was switched to BiPAP with the elevated CO2 to see if this would help with the mentation. Chest x-ray did show some mild CHF with pleural effusion but no overt failure. Question if the CHF is secondary to A. fib with RVR. Did discuss with nephrology to see if this is someone that we could keep in the hospital and dialyzed. They did feel was reasonable at this time. Also discussed with the hospitalist to make sure it was possible to keep this patient with a limited ability of dialysis. I did feel was reasonable at this time. Patient had no fevers. Blood cultures were obtained. Did not give any additional fluids as she had some pitting edema in the lower extremities with a chest x-ray suggesting some mild failure. Patient was updated at bedside although intermittently confused and admitted to the hospital for further work- up. Did order a CT of the head which will be performed prior to transport upstairs per nursing staff. Triage Nursing notes reviewed. Prior medical records reviewed Vital Signs: reviewed and remarkable for hypoxic and tachycardic Differential diagnosis: Differential diagnoses includes but is not limited to toxic, metabolic, infectious, traumatic, cardiac, neurologic, hematologic, psychiatric and inflammatory etiologies. ER treatment provided: See below Diagnostics interpreted by me: ECG: A. fib with RVR rate of 129 PVCs present Prolonged QTC Right axis Cardiac Monitoring: An order was placed for continuous cardiac monitoring. The monitor shows a rate of 141 with A. fib rhythm. Laboratory studies: As stated above and show below. Imaging studies: Portable AP upright 1 view of the chest shows no focal infiltrate. CT head pending Consultation(s): Discussed with Jatinder Prasad from not any hospitalist ED COURSE: Procedures: none Critical Care: I have personally spent 45 minutes of critical care time in the direct manage ment of this patient. This includes bedside care, interpretation of diagnostic studies, and testing, discussion with consultants, patient, and family members, and other required patient management activities. This 45 minutes is in excess of all separately billable procedures. Past Med/Surg History Social History Preferred Language: Barbadian Communication Ability: Effective Blood And Plasma Laboratory Assistant Required: No Beliefs That Will Affect Care: None marital status: Current Living Situation: Correction Feels Safe at Home: Yes Smoking Status: Never smoker Hx Alcohol Use: No Hx Substance Use: No Allergies Allergies Allergy/AdvReac Type Severity Reaction Status Date / Time morphine Allergy Intermediate Photosensit Verified 09/25/19 12:03 ivity nitroglycerin Allergy Mild Nausea Verified 09/25/19 12:03 Home Meds Home Medications Medication Instructions Recorded Confirmed Combivent Respimat 2 puff INHALATION Q4 PRN 12/02/18 09/25/19 acetaminophen 650 mg PO Q6H PRN MDD 3g/24hr 12/02/18 09/25/19 acetaminophen 650 mg PO Q6H PRN MDD x1 dose 12/02/18 09/25/19 allopurinol 100 mg PO DAILY 12/02/18 09/25/19 calcium acetate(phosphat bind) 1,334 mg PO TIDM 12/02/18 09/25/19 digoxin 125 mcg PO 2XWK 12/02/18 09/25/19 metoprolol succinate 12.5 mg PO BID 12/02/18 09/25/19 ondansetron HCl [Zofran] 4 mg PO Q6H PRN 12/02/18 09/25/19 ropinirole 0.5 mg PO HS 12/02/18 09/25/19 Aspercreme Heat 1 applic TOPICAL Q8H PRN 05/01/19 09/25/19 aspirin 81 mg PO DAILY 05/01/19 09/25/19 bisacodyl [Dulcolax (bisacodyl)] 10 mg DC DAILY PRN 05/01/19 09/25/19 famotidine 20 mg PO BID 05/01/19 09/25/19 folic acid 1 mg PO DAILY 05/01/19 09/25/19 midodrine 10 mg PO DAILY 05/01/19 09/25/19 oxycodone-acetaminophen 5 mg-325 1 tab PO Q6H PRN 06/08/19 09/25/19 mg tablet Renal Vitamin 1 tab PO DAILY 07/14/19 09/25/19 omeprazole 40 mg PO DAILY 07/14/19 09/25/19 sertraline 50 mg PO DAILY 07/14/19 09/25/19 trazodone 150 mg PO HS 07/14/19 09/25/19 lorazepam 0.5 mg PO Q8 PRN 08/01/19 09/25/19 sertraline 25 mg PO DAILY 08/01/19 09/25/19 Results & Data (ED) Vital Signs Vital Signs - 24 hr 09/25/19 11:48 09/25/19 12:01 09/25/19 12:15 Temperature 37.0 C Temperature Source Oral Pulse Rate 136 H 153 H 136 H Pulse Rate from SpO2 Sensor 157 H 144 H Pulse Rhythm Regular Pulse Strength Normal Respiratory Rate 20 24 22 Respiratory Effort / Characteristics Non-Labored Spontaneous Respiratory Depth Normal Respiratory Pattern Regular Blood Pressure 107/94 117/73 Blood Pressure Mean 98 80 Blood Pressure Position Lying Pulse Oximetry 98 94 99 Oxygen Delivery Method Non-rebreather Non-rebreather Non-rebreather Oxygen Flow Rate 12 15 15 Fraction of Inspired Oxygen Sepsis Recent Fever Within 48 Hours No Sepsis New/Unexplained Change in Mental Status No Sepsis Action Taken by Nursing No Action Required 09/25/19 12:22 09/25/19 12:23 09/25/19 12:30 Temperature Temperature Source Pulse Rate 138 H 144 H 137 H Pulse Rate from SpO2 Sensor 149 H 146 H 138 H Pulse Rhythm Pulse Strength Respiratory Rate 22 17 16 Respiratory Effort / Characteristics Respiratory Depth Respiratory Pattern Blood Pressure 116/57 L 123/91 Blood Pressure Mean 73 99 Blood Pressure Position Pulse Oximetry 97 100 97 Oxygen Delivery Method Non-rebreather Non-rebreather Non-rebreather Oxygen Flow Rate 15 15 15 Fraction of Inspired Oxygen Sepsis Recent Fever Within 48 Hours Sepsis New/Unexplained Change in Mental Status Sepsis Action Taken by Nursing 09/25/19 12:45 09/25/19 13:00 09/25/19 13:01 Temperature Temperature Source Pulse Rate 146 H 144 H 135 H Pulse Rate from SpO2 Sensor 161 H 142 H 137 H Pulse Rhythm Pulse Strength Respiratory Rate 17 31 H 20 Respiratory Effort / Characteristics Respiratory Depth Respiratory Pattern Blood Pressure 121/98 147/68 H Blood Pressure Mean 109 126 Blood Pressure Position Pulse Oximetry 97 95 98 Oxygen Delivery Method Non-rebreather Non-rebreather Non-rebreather Oxygen Flow Rate 15 15 15 Fraction of Inspired Oxygen Sepsis Recent Fever Within 48 Hours Sepsis New/Unexplained Change in Mental Status Sepsis Action Taken by Nursing 09/25/19 13:15 09/25/19 13:17 09/25/19 13:30 Temperature Temperature Source Pulse Rate 136 H 130 H 132 H Pulse Rate from SpO2 Sensor 145 H 134 H Pulse Rhythm Pulse Strength Respiratory Rate 21 30 H 18 Respiratory Effort / Characteristics Spontaneous Respiratory Depth Normal Respiratory Pattern Regular Blood Pressure 122/71 133/81 Blood Pressure Mean 111 107 Blood Pressure Position Pulse Oximetry 98 96 96 Oxygen Delivery Method Non-rebreather BiPAP Oxygen Flow Rate 15 Fraction of Inspired Oxygen 40 Sepsis Recent Fever Within 48 Hours Sepsis New/Unexplained Change in Mental Status Sepsis Action Taken by Nursing 09/25/19 13:45 09/25/19 14:00 09/25/19 14:15 Temperature Temperature Source Pulse Rate 124 H 123 H 121 H Pulse Rate from SpO2 Sensor 119 H 126 H 117 H Pulse Rhythm Pulse Strength Respiratory Rate 24 27 H Respiratory Effort / Characteristics Respiratory Depth Respiratory Pattern Blood Pressure 107/78 Blood Pressure Mean 82 Blood Pressure Position Pulse Oximetry 97 96 96 Oxygen Delivery Method BiPAP BiPAP Room Air Oxygen Flow Rate Fraction of Inspired Oxygen Sepsis Recent Fever Within 48 Hours Sepsis New/Unexplained Change in Mental Status Sepsis Action Taken by Nursing Laboratory Data Result diagrams: 09/25/19 12:07 09/25/19 12:07 Lab Results 05/25/20 05/25/20 05/25/20 Range/Units 12:07 12:07 12:07 WBC 9.52 (4.8-10.8) K/uL RBC 4.40 (4.2-5.4) M/uL Hgb 13.6 (12.0-16.0) g/dL POC Hgb (12.0-16.0) g/dl Hct 46.9 (37-47) % POC Hct (37-47) % MCV 106.6 H (80-100) fL MCH 30.9 (25-34) pg MCHC 29.0 L (32-36) g/dL RDW Std Deviation 73.9 H (36.4-46.3) fL RDW Coeff of Analia 19.0 H (11.5-14.5) % Plt Count 102 L (130-400) K/uL MPV 12.1 H (7.4-10.4) fL Immature Gran % (Auto) 0.2 % Neut % (Auto) 83.5 % Lymph % (Auto) 7.6 % [place] % (Auto) 7.4 % Eos % (Auto) 0.8 % Baso % (Auto) 0.5 % Immature Gran # (Auto) 0.02 (0.00-0.02) K/uL Neut # (Auto) 7.95 H (1.4-6.5) K/uL Lymph # (Auto) 0.72 L (1.2-3.4) K/uL [place] # (Auto) 0.70 H (0.11-0.59) K/uL Eos # (Auto) 0.08 (0-0.5) K/uL Baso # (Auto) 0.05 (0-0.2) K/uL Platelet Estimate Decreased L (Normal) Macrocytosis Present Ovalocytes 1+ PT 17.6 H (9.0-12.0) Seconds INR 1.7 H (0.9-1.1) APTT 40.5 H (21.0-31.0) Seconds PTT Ratio 1.5 VBG pH (7.36-7.41) VBG pCO2 (38-50) mmHg VBG pO2 mmHg VBG HCO3 mmol/L VBG O2 Saturation % VBG Base Excess mEq/L Barometric Pressure mm/Hg POC Sodium (135-144) mmol/L Sodium 139 (136-145) mmol/L POC Potassium (3.3-5.0) mmol/L Potassium 3.9 (3.5-5.1) mmol/L POC Chloride (101-112) mmol/L Chloride 100 (98-107) mmol/L Carbon Dioxide 27 (21-32) mmol/L POC Total CO2 (24-31) mmol/L Anion Gap 11.0 (3-11) POC Anion Gap (16-25) mmol/L POC BUN (7-18) mg/dl BUN 43 H (7-18) mg/dl Creatinine 5.46 H* (0.6-1.2) mg/dl POC Creatinine (0.6-1.3) mg/dl Est Cr Clr Drug Dosing 12.0 ml/min Est GFR ( Amer) 9.4 Est GFR (Non-Af Amer) 8.1 BUN/Creatinine Ratio 7.9 L (10-20) Glucose 103 H (70-99) mg/dl POC Glucose (other) (70-99) mg/dl Lactate (0.4-2.0) mmol/L Calcium 10.3 H (8.5-10.1) mg/dl POC Ioniz Calcium Clem (1.12-1.32) mmol/l Magnesium 2.3 (1.8-2.4) mg/dl Total Bilirubin 1.3 H (0.2-1) mg/dl AST 21 (15-37) U/L ALT 17 (12-78) U/L Alkaline Phosphatase 123 H (45-117) U/L Troponin I 0.076 H* (0-0.045) ng/ml Total Protein 7.7 (6.4-8.2) gm/dl Albumin 3.4 (3.4-5.0) gm/dl Globulin 4.3 H (2.5-4.0) gm/dl Albumin/Globulin Ratio 0.8 L (0.9-2) Digoxin (0.8-2.0) ng/ml Influenza Type A (PCR) (Neg) Influenza Type B (PCR) (Neg) 09/25/19 09/25/19 09/25/19 Range/Units 12:07 12:07 12:07 WBC (4.8-10.8) K/uL RBC (4.2-5.4) M/uL Hgb (12.0-16.0) g/dL POC Hgb (12.0-16.0) g/dl Hct (37-47) % POC Hct (37-47) % MCV (80-100) fL MCH (25-34) pg MCHC (32-36) g/dL RDW Std Deviation (36.4-46.3) fL RDW Coeff of Analia (11.5-14.5) % Plt Count (130-400) K/uL MPV (7.4-10.4) fL Immature Gran % (Auto) % Neut % (Auto) % Lymph % (Auto) % [place] % (Auto) % Eos % (Auto) % Baso % (Auto) % Immature Gran # (Auto) (0.00-0.02) K/uL Neut # (Auto) (1.4-6.5) K/uL Lymph # (Auto) (1.2-3.4) K/uL [place] # (Auto) (0.11-0.59) K/uL Eos # (Auto) (0-0.5) K/uL Baso # (Auto) (0-0.2) K/uL Platelet Estimate (Normal) Macrocytosis Ovalocytes PT (9.0-12.0) Seconds INR (0.9-1.1) APTT (21.0-31.0) Seconds PTT Ratio VBG pH 7.30 L (7.36-7.41) VBG pCO2 60 H (38-50) mmHg VBG pO2 63 mmHg VBG HCO3 29 mmol/L VBG O2 Saturation 90.3 % VBG Base Excess 1.2 mEq/L Barometric Pressure 736.9 mm/Hg POC Sodium (135-144) mmol/L Sodium (136-145) mmol/L POC Potassium (3.3-5.0) mmol/L Potassium (3.5-5.1) mmol/L POC Chloride (101-112) mmol/L Chloride (98-107) mmol/L Carbon Dioxide (21-32) mmol/L POC Total CO2 (24-31) mmol/L Anion Gap (3-11) POC Anion Gap (16-25) mmol/L POC BUN (7-18) mg/dl BUN (7-18) mg/dl Creatinine (0.6-1.2) mg/dl POC Creatinine (0.6-1.3) mg/dl Est Cr Clr Drug Dosing ml/min Est GFR ( Amer) Est GFR (Non-Af Amer) BUN/Creatinine Ratio (10-20) Glucose (70-99) mg/dl POC Glucose (other) (70-99) mg/dl Lactate 2.8 H* (0.4-2.0) mmol/L Calcium (8.5-10.1) mg/dl POC Ioniz Calcium Clem (1.12-1.32) mmol/l Magnesium (1.8-2.4) mg/dl Total Bilirubin (0.2-1) mg/dl AST (15-37) U/L ALT (12-78) U/L Alkaline Phosphatase (45-117) U/L Troponin I (0-0.045) ng/ml Total Protein (6.4-8.2) gm/dl Albumin (3.4-5.0) gm/dl Globulin (2.5-4.0) gm/dl Albumin/Globulin Ratio (0.9-2) Digoxin 0.1 L (0.8-2.0) ng/ml Influenza Type A (PCR) (Neg) Influenza Type B (PCR) (Neg) 09/25/19 09/25/19 09/25/19 Range/Units 12:07 12:17 14:14 WBC (4.8-10.8) K/uL RBC (4.2-5.4) M/uL Hgb (12.0-16.0) g/dL POC Hgb 17.0 H (12.0-16.0) g/dl Hct (37-47) % POC Hct 50 H (37-47) % MCV (80-100) fL MCH (25-34) pg MCHC (32-36) g/dL RDW Std Deviation (36.4-46.3) fL RDW Coeff of Analia (11.5-14.5) % Plt Count (130-400) K/uL MPV (7.4-10.4) fL Immature Gran % (Auto) % Neut % (Auto) % Lymph % (Auto) % [place] % (Auto) % Eos % (Auto) % Baso % (Auto) % Immature Gran # (Auto) (0.00-0.02) K/uL Neut # (Auto) (1.4-6.5) K/uL Lymph # (Auto) (1.2-3.4) K/uL [place] # (Auto) (0.11-0.59) K/uL Eos # (Auto) (0-0.5) K/uL Baso # (Auto) (0-0.2) K/uL Platelet Estimate (Normal) Macrocytosis Ovalocytes PT (9.0-12.0) Seconds INR (0.9-1.1) APTT (21.0-31.0) Seconds PTT Ratio VBG pH (7.36-7.41) VBG pCO2 (38-50) mmHg VBG pO2 mmHg VBG HCO3 mmol/L VBG O2 Saturation % VBG Base Excess mEq/L Barometric Pressure mm/Hg POC Sodium 139 (135-144) mmol/L Sodium (136-145) mmol/L POC Potassium 3.9 (3.3-5.0) mmol/L Potassium (3.5-5.1) mmol/L POC Chloride 101 (101-112) mmol/L Chloride (98-107) mmol/L Carbon Dioxide (21-32) mmol/L POC Total CO2 27 (24-31) mmol/L Anion Gap (3-11) POC Anion Gap 15.0 L (16-25) mmol/L POC BUN 39 H (7-18) mg/dl BUN (7-18) mg/dl Creatinine (0.6-1.2) mg/dl POC Creatinine 5.3 H* (0.6-1.3) mg/dl Est Cr Clr Drug Dosing ml/min Est GFR ( Amer) Est GFR (Non-Af Amer) BUN/Creatinine Ratio (10-20) Glucose (70-99) mg/dl POC Glucose (other) 99 (70-99) mg/dl Lactate 3.2 H* (0.4-2.0) mmol/L Calcium (8.5-10.1) mg/dl POC Ioniz Calcium Clem 1.21 (1.12-1.32) mmol/l Magnesium (1.8-2.4) mg/dl Total Bilirubin (0.2-1) mg/dl AST (15-37) U/L ALT (12-78) U/L Alkaline Phosphatase (45-117) U/L Troponin I (0-0.045) ng/ml Total Protein (6.4-8.2) gm/dl Albumin (3.4-5.0) gm/dl Globulin (2.5-4.0) gm/dl Albumin/Globulin Ratio (0.9-2) Digoxin (0.8-2.0) ng/ml Influenza Type A (PCR) Neg for Influ A (Neg) Influenza Type B (PCR) Neg for Influ B (Neg) Administered Medications Diltiazem HCl 125 mg/ Dextrose 125 mls @ 10 mls/hr IV .[id number]; Protocol Stop: 10/25/19 13:14 Last Titration: 09/25/19 15:08 Dose: 10 mg/hr, 10 mls/hr Documented by: [id number] Cosigned by: [id number] Titration: 09/25/19 14:52 Dose: 5 mg/hr, 5 mls/hr Documented by: [id number] Cosigned by: [id number] Titration: 09/25/19 13:55 Dose: 10 mg/hr, 10 mls/hr Documented by: [id number] Cosigned by: [id number] Admin: 09/25/19 13:30 Dose: 5 mg/hr, 5 mls/hr Documented by: [id number] Cosigned by: [id number] Discontinued Medications Diltiazem HCl (Cardizem) 10 mg IV NOW STA Stop: 09/25/19 13:16 Last Admin: 09/25/19 13:30 Dose: 10 mg Documented by: [id number] Cosigned by: [id number] Furosemide (Lasix) 40 mg IV NOW STA Stop: 09/25/19 13:22 Last Admin: 09/25/19 13:30 Dose: 40 mg Documented by: [id number] Miscellaneous () 1 ea N/A NOW STA Stop: 09/25/19 13:16 Last Admin: 09/25/19 13:30 Dose: Not Given Documented by: [id number] Discharge Plan Visit Data *Final* Discharge Date/Time: 09/25/19 14:57 Chief Complaint: Altered Mental Status ED Provider: Leon Barrientos Discharge Problem: Acute respiratory failure with hypoxia and hypercarbia, AMS (altered mental status), CHF (congestive heart failure), Atrial fibrillation with rapid ventricular response, Hypoxia Patient Disposition: Admitted As Inpatient Discharge Instructions Interventions: ED Discharge Assessment Last Done: 09/25/19 14:57 Discharge Problem: AMS (altered mental status) Qualifiers: Altered mental status type: unspecified Qualified Code(s): R41.82 - Altered mental status, unspecified CHF (congestive heart failure) Qualifiers: Heart failure type: unspecified Heart failure chronicity: acute Qualified Code(s): I50.9 - Heart failure, unspecified
--- NOTE | 2019-09-25 12:06 | XRay Report ---
XR chest 1V portable CLINICAL HISTORY: 54 years-old Female presenting with SEPSIS. TECHNIQUE: Portable upright AP view of the chest was obtained. COMPARISON: 08/01/2019. FINDINGS: The patient is KOSOVAN rotated. Right internal jugular dual lumen dialysis catheter terminates in the right atrium. Additional cathet er courses along the left neck and left thorax into the region of the abdomen. Median sternotomy wire s and mediastinal surgical clips noted. Additional surgical clips in the region of the right upper ch est wall. Several overlying support devices noted. Atherosclerosis and prominence of the thoracic aorta. Cardiac silhouette enlarged. Underlying left pl eural effusion not excluded. Relatively low volume of the right lung. Suspected new small right pleur al effusion. Pulmonary vascular prominence and interstitial prominence stable to increased from prior . No pneumothorax. Degenerative changes of the thoracic spine. Upper abdomen normal. IMPRESSION: 1. Prominence of the thoracic aorta. Underlying aneurysm not excluded. This appearance is unchanged. 2. Cardiomegaly with evidence of volume overload and congestive change. This is stable to slightly w orsened from prior. 3. Small right pleural effusion may be new from prior. Underlying left effusion not excluded. ACT 112: Negative or not required by law. Electronically signed by: Manny Renner M.D. 09/25/2019 12:04 PM
[2019-09-25 12:25] LABS: Base Excess VBG 1.2 mEq/L; Oxygen Saturation VBG 90.3 %; pH VBG 7.3 (7.36-7.41)
[2019-09-25 12:31] LABS: iSTAT Creatinine 5.3 mg/dl (0.6-1.3); iSTAT Ionized Calcium 1.21 mmol/l (1.12-1.32); iSTAT Potassium 3.9 mmol/L (3.3-5.0)
[2019-09-25 12:33] LABS: INR 1.7 (0.9-1.1); Partial Thromboplastin Ratio 1.5; Partial Thromboplastin Time 40.5 Seconds (21.0-31.0); Prothrombin Time 17.6 Seconds (9.0-12.0)
[2019-09-25 12:45] LABS: Basophils # (auto) 0.05 K/uL (0-0.2); Basophils % (auto) 0.5 %; Eosinophils # (auto) 0.08 K/uL (0-0.5); Eosinophils % (auto) 0.8 %; Hematocrit (blood only) 46.9 % (37-47); Hemoglobin 13.6 g/dL (12.0-16.0); Immature Granulocytes # (auto) 0.02 K/uL (0.00-0.02); Immature Granulocytes % (auto) 0.2 %; Lymphocytes # (auto) 0.72 K/uL (1.2-3.4); Lymphocytes % (auto) 7.6 %; Macrocytosis Present; Mean Corpuscular Hemoglobin 30.9 pg (25-34); Mean Corpuscular Volume 106.6 fL (80-100); Mean Platelet Volume 12.1 fL (7.4-10.4); Monocytes % (auto) 7.4 %; Neutrophils # (auto) 7.95 K/uL (1.4-6.5); Neutrophils % (auto) 83.5 %; Ovalocytes 1+; Platelet Count 102 K/uL (130-400); Platelet Estimate Decreased (Normal); RDW Standard Deviation 73.9 fL (36.4-46.3); White Blood Count 9.52 K/uL (4.8-10.8)
[2019-09-25 12:49] LABS: Influenza A virus by PCR Neg for Influ A (Neg); Influenza B virus by PCR Neg for Influ B (Neg)
[2019-09-25 12:50] LABS: Albumin Globulin Ratio 0.8 (0.9-2); Albumin Level 3.4 gm/dl (3.4-5.0); BUN Creatinine Ratio 7.9 (10-20); Bilirubin,Total 1.3 mg/dl (0.2-1); Calcium 10.3 mg/dl (8.5-10.1); Est GFR (African American) 9.4; Est GFR (Non-African American) 8.1; Globulin 4.3 gm/dl (2.5-4.0); Magnesium 2.3 mg/dl (1.8-2.4); Potassium 3.9 mmol/L (3.5-5.1); Total Protein 7.7 gm/dl (6.4-8.2); Troponin I 0.076 ng/ml (0-0.045)
[2019-09-25] MEDS ORDERED: STAT IV Infusion **Titration per Protocol STA (13:15)
[2019-09-25] MEDS ORDERED: dilTIAZem HCl 5 MG/ML 5 ML VIAL IV STA (13:15)
[2019-09-25] MEDS ORDERED: FUROSEMIDE 40 MG/4 ML VIAL IV STA (13:21)
[2019-09-25] MEDS: dilTIAZem HCL 125 MG in DEXTROSE 5% 100 ML IV SCH ×2 (13:30→23:35)
--- NOTE | 2019-09-25 14:33 | History & Physical Report ---
Date of Service September 25, 2019 Assessment & Plan (1) Altered mental state: Unfortunately unable to get CT head as patient too agitated. Concerned about giving lorazepam for sedation as likely to make hypercapnia worse. Given acute hypoxia this is most likely cause of acute altered mental state although noted she also usually waxes and wanes after dialysis days. Consider retrying CT head if patient becomes less agitated. No new medications but recent changes detailed in HPI. No signs of infective etiology - although history and exam limited by current patient cognition. (2) Acute respiratory failure with hypoxia and hypercarbia: Chronic hypoxia with baseline O2 2.5L/min Chronic hypercapnia reflected in HCO3 29 Unclear cause for acute worsening as CXR not significantly worse than normal, occurred during dialysis ?positioning with lying flat. No wheezing to suggest COPD exacerbation. Possible PE but since we have been unable to get a CT head also unable to get CT for PE at present. Given recent intracranial bleed for which I understand is the reason she is not on chronic anticoagulation I am reluctant to treat in the absence of a confirmed diagnosis unless her hypoxia gets significantly worse overnight with no alternative explanation. No WBC to suggest PNA. 1L removed during dialysis therefore suspect she is more dehydrated than overloaded at present and will cautiously rehydrate to maintain BP. Aim O2 sats > 88% to avoid worsening hypercapnia. BiPAP as needed to maintain O2 sats if unable to do this with high flow. Repeat CXR/ABG in AM. (3) Dehydration: As demonstrated by increased calcium and CBC hemoconcentration. No JVD on exam. Wrinkled skin on legs. 1L taken off at dialysis today with worsening symptoms. Cautiously rehydrate with IV fluids boluses as needed to maintain blood pressure. Unknown if a. flutter/fib is appropriate therefore HR unsuitable measure of dehydrated state. (4) Atrial fibrillation with rapid ventricular response: Unclear if appropriate/inappropriate. Altered mental state concerning for stroke given no anticoagulation for this although associated hypoxia makes this much more likely. Started on diltiazem drip without significant improvement. Will start metoprolol tartrate 5mg IV q4H with hold parameters. (5) Elevated INR: Unclear etiology as no known liver disease and now off warfarin. Plt actually improved from prior therefore unlikely acute DIC, no current bleeding sites to suggest this either. Continue to monitor with additional DIC labs in AM. (6) S/P AVR (aortic valve replacement) and aortoplasty: noted (7) ESRD (end stage renal disease): Consult nephrology. Discussed with Dr Roger and no emergent need for dialysis identified. (8) COPD (chronic obstructive pulmonary disease): On no maintenance inhalers for this. Will use duonebs PRN for wheezing. (9) Macrocytosis: Suspect secondary to EPO injections at dialysis Admission and Anticipated Discharge Date Admission Date: 09/25/2019 History of Present Illness Chief Complaint: Altered mental state Primary Care Provider: [facility] Carina Preston is a 54 year old female patient from [facility] who was brought by EMS to the ER today from [facility] dialysis due to altered mental state. As per nursing notes discussed with nursing program manager at [facility] she was given percocet yesterday causing her to have altered mental state then with hallucinations, lethargy, poor trunk control and reduced oral intake around 2pm. Labs were ordered by director money physician but they were unable to get these. However around 10:30pm she was noted to be eating sandwiches therefore appeared to improve. This morning she was noted to have taken all of her scheduled medications and she went to dialysis. As per dialysis notes provided (unable to get through to nurse on the phone) the patient arrived agitated but medically stable. Patient began to complain of shortness of breath and increased restlessness during hemodialysis. Patient not experiencing relief with increased oxygen and the treatment was terminated. As discussed with Dr Roger 1L was removed during dialysis. HR noted to be 102 pre-treatment, 104 post-treatment. As discussed with [facility] - no current COVID-19 cases, no recent fever, chills, cough. Unable to get a history from the patient. Currently on BiPAP and able to follow a few commands but not orientated to time, place or person. Recent medication changes from retirement documentation: ropinirole recently reduced from 0.5mg PO HS to 0.25mg HS just on dialysis days the last week. Trazodone reduced from 150mg HS to 50mg HS metoprolol reduced from 12.5mg BID to daily Started on Percocet yesterday (only had one dose and was discontinued) Discussed care with her contact listed, Eusebio (sister in law), who noted during a video chat on Wednesday the patient looked awful with a puffy face and was not her usual self then either. Allergies Allergy/AdvReac Type Severity Reaction Status Date / Time morphine Allergy Intermediate Photosensit Verified 09/25/19 12:03 ivity nitroglycerin Allergy Mild Nausea Verified 09/25/19 12:03 Home Medications Home Medications Medication Instructions Recorded Confirmed Type Combivent Respimat 2 puff INHALATION Q4 PRN 12/02/18 09/25/19 History acetaminophen 650 mg PO Q6H PRN MDD 3g/24hr 12/02/18 09/25/19 History acetaminophen 650 mg PO Q6H PRN MDD x1 dose 12/02/18 09/25/19 History allopurinol 100 mg PO DAILY 12/02/18 09/25/19 History calcium acetate(phosphat bind) 1,334 mg PO TIDM 12/02/18 09/25/19 History digoxin 125 mcg PO 2XWK 12/02/18 09/25/19 History metoprolol succinate 12.5 mg PO BID 12/02/18 09/25/19 History ondansetron HCl [Zofran] 4 mg PO Q6H PRN 12/02/18 09/25/19 History ropinirole 0.5 mg PO HS 12/02/18 09/25/19 History Aspercreme Heat 1 applic TOPICAL Q8H PRN 05/01/19 09/25/19 History aspirin 81 mg PO DAILY 05/01/19 09/25/19 History bisacodyl [Dulcolax (bisacodyl)] 10 mg [place] DAILY PRN 05/01/19 09/25/19 History famotidine 20 mg PO BID 05/01/19 09/25/19 History folic acid 1 mg PO DAILY 05/01/19 09/25/19 History midodrine 10 mg PO DAILY 05/01/19 09/25/19 History oxycodone-acetaminophen 5 mg-325 1 tab PO Q6H PRN 06/08/19 09/25/19 History mg tablet Renal Vitamin 1 tab PO DAILY 07/14/19 09/25/19 History omeprazole 40 mg PO DAILY 07/14/19 09/25/19 History sertraline 50 mg PO DAILY 07/14/19 09/25/19 History trazodone 150 mg PO HS 07/14/19 09/25/19 History lorazepam 0.5 mg PO Q8 PRN 08/01/19 09/25/19 History sertraline 25 mg PO DAILY 08/01/19 09/25/19 History Past Med/Surg History Social History Preferred Language: Hungarian Communication Ability: Effective 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 Beliefs That Will Affect Care: None marital status: Current Living Situation: Long Term Feels Safe at Home: Yes Smoking Status: Unknown if ever smoked Review of Systems Review of Systems: Unobtainable due to cognitive status Physical Exam Constitutional: + acute distress (respiratory); + not well nourished Eyes: + anicteric sclerae and PERRL (difficult to assess as patient unable to keep open) ENMT: Mouth: + dry oral mucous membranes Neck: trachea midline Respiratory: + respiratory distress, + labored breathing and + uses accessory muscles; no cough, + not able to speak in complete sentence and no audible wheezes Cardiovascular: Rate/Rhythm: + tachycardic and + irregularly irregular Heart Sounds: no murmur Vessels: no JVD Extremities: no pedal edema (wrinkled skin on legs) Gastrointestinal (Abdomen): normal bowel sounds, soft, nontender, no hepatosplenomegaly Skin: no rashes, warm and dry Neurologic: moves all extremities (follows simple commands to move her feet and squeeze hands b/l), awake and + confused; no focal motor deficits (difficult exam given altered mental state, but no lateralizing signs) Psychiatric: Orientation: alert (to voice); + not oriented x 3 Results & Data Results & Data ([facility]) Vital Signs (Past 12 Hours) Vital Signs Temp Pulse Resp BP Pulse Ox 09/25/19 14:00 123 H 27 H 96 09/25/19 13:45 124 H 24 107/78 97 09/25/19 13:30 132 H 18 133/81 96 09/25/19 13:17 130 H 30 H 96 09/25/19 13:15 136 H 21 122/71 98 09/25/19 13:01 135 H 20 147/68 H 98 09/25/19 13:00 144 H 31 H 95 09/25/19 12:45 146 H 17 121/98 97 09/25/19 12:30 137 H 16 123/91 97 09/25/19 12:23 144 H 17 100 09/25/19 12:22 138 H 22 116/57 L 97 09/25/19 12:15 136 H 22 99 09/25/19 12:01 153 H 24 117/73 94 09/25/19 11:48 37.0 C 136 H 20 107/94 98 Code Status & VTE Plan Code Status Full as per previous wishes from [facility] VTE Prophylaxis Plan VTE Prophylaxis will be ordered: Yes Critical Care Time Critical Care Time: Yes Total Critical Care Time: 50 Multiple changes of medications and visits throughout the day PG Care Time/CCT Total # of Minutes Spent Total Time Spent with Patient: Total time spent is greater than 50% in coordination of care (as documented) at patient's floor/unit and/or counseling patient: Critical Care Time: Yes Total Critical Care Time: 50 Multiple changes in medications and re-examined throughout the day Coding Level of Care Code 52674 Initial Inpt Care Lvl 3 Diagnoses Altered mental state R41.82 Acute respiratory failure with hypoxia and hypercarbia J96.01; J96.02 Dehydration E86.0 Atrial fibrillation with rapid ventricular response I48.91 Elevated INR R79.1 S/P AVR (aortic valve replacement) and aortoplasty Z95.2 ESRD (end stage renal disease) N18.6 COPD (chronic obstructive pulmonary disease) J44.9 Macrocytosis D75.89 Additional Codes Critical Care Time - Critical Care Time: Yes ([id number])
[2019-09-25 15:45] LABS: Allen Test POS (Pos)
[2019-09-25] MEDS ORDERED: LORazepam 0.5 MG TAB PO PRN (16:02)
[2019-09-25 16:44] LABS: Base Excess ABG 0.4 mEq/L (-9-1.8); HCO3 ABG 29 mmol/L (19-24); Oxygen Saturation ABG 98.1 % (90-95); PCO2 ABG 63 mmHg (35-46); PO2 ABG 124 mmHg (80-95); pH ABG 7.28 (7.35-7.45)
[2019-09-25 16:45] LABS: Allen Test POS (Pos)
[2019-09-25] MEDS: CALCIUM ACETATE 667 MG CAP/TAB PO SCH (17:21)
[2019-09-25] MEDS ORDERED: LORazepam 0.5 MG/1 ML VIAL IV STA (17:26)
[2019-09-25] MEDS ORDERED: LACTATED RINGER'S 250 ML IV ONE ×2 (17:28→19:56)
[2019-09-25] MEDS ORDERED: LORazepam 2 MG/4 ML VIAL ONE (17:33)
--- NOTE | 2019-09-25 18:11 | XRay Report ---
XR chest 1V portable CLINICAL HISTORY: 54 years-old Female presenting with shortness of breath. TECHNIQUE: Portable upright AP view of the chest was obtained. COMPARISON: 09/25/2019. FINDINGS: Right internal jugular tunneled dialysis catheter terminates in the right atrium. Catheter also desce nds along the left neck and left chest into the abdomen. Median sternotomy wires and mediastinal surg ical clips. Right upper chest wall surgical clips also noted. Atherosclerosis of the prominent thoracic aorta. Cardiac silhouette enlarged. Stable to slight increa se in pulmonary vascular prominence. Prominence of the interstitium suggested. Elevation of the right hemidiaphragm. Suspected trace right and small left pleural effusions. No pneumothorax. Several exte rnal leads project over the lower thorax and upper abdomen. Osseous structures normal. IMPRESSION: 1. Cardiomegaly with stable to slight worsening of volume overload and congestive change. 2. Low lung volume on the right related to elevated right hemidiaphragm. 3. Possible pleural effusions. 4. Prominence of the thoracic aorta, unchanged. ACT 112: Negative or not required by law. Electronically signed by: Manny Renner M.D. 09/25/2019 6:10 PM
[2019-09-25] MEDS ORDERED: PNEUMOCOCCAL POLYSACCHARIDES 25 MCG/0.5 ML VIAL/SYR IM ONE (19:15)
[2019-09-25] MEDS ORDERED: PNEUMOCOCCAL ADMINISTRATION CHARGE ONE (19:15)
[2019-09-25] MEDS ORDERED: PNEUMOCOCCAL 13 VALENT CONJUGATE VACCINE IM ONE (19:15)
[2019-09-25 19:57] LABS: Base Excess ABG 1.8 mEq/L (-9-1.8); HCO3 ABG 29 mmol/L (19-24); Oxygen Saturation ABG 94.8 % (90-95); PCO2 ABG 56 mmHg (35-46); PO2 ABG 75 mmHg (80-95); pH ABG 7.33 (7.35-7.45)
[2019-09-25 19:58] LABS: Allen Test POS (Pos)
[2019-09-25] MEDS: FAMOTIDINE 20 MG TAB PO SCH (20:01)
[2019-09-25] MEDS: METOPROLOL TARTRATE 1 MG/ML VIAL IV SCH ×2 (20:20→23:05)
[2019-09-25] MEDS ORDERED: TRAZODONE HCL 50 MG TAB PO SCH (21:00)
[2019-09-25] MEDS ORDERED: ROPINIROLE HCL 0.25 MG TABLET PO SCH (21:00)
[2019-09-25] MEDS ORDERED: METOPROLOL SUCC 25MG EXT REL TAB PO SCH (21:00)
[2019-09-25] MEDS ORDERED: ALBUT/IPRATROP 3MG/0.5MG NEB 3 ML VIAL NEB PRN (23:29)
[2019-09-26] MEDS: METOPROLOL TARTRATE 1 MG/ML VIAL IV SCH ×2 (03:58→10:30)
[2019-09-26] MEDS ORDERED: LORazepam 2 MG/4 ML VIAL ONE ×2 (04:23→04:30)
[2019-09-26] MEDS ORDERED: levETIRAcetam 1,000 MG in 0.9 % SODIUM CHLORIDE 100 ML IV STA (04:25)
[2019-09-26] MEDS ORDERED: ALBUMIN 25% 50 ML IV ONE ×2 (04:34→04:45)
[2019-09-26] MEDS ORDERED: RAPID SEQUENCE INDUCTION BAG ONE (04:40)
[2019-09-26] MEDS ORDERED: NOREPINEPHRINE (Adult) 8 MG in DEXTROSE 5% 500 ML IV SCH (05:15)
[2019-09-26 05:21] LABS: Albumin Globulin Ratio 0.8 (0.9-2); Albumin Level 3.3 gm/dl (3.4-5.0); BUN Creatinine Ratio 7.4 (10-20); Bilirubin,Total 1.9 mg/dl (0.2-1); Calcium 9.3 mg/dl (8.5-10.1); Creatinine Clr Calc Pharmacy 10.5 ml/min; Est GFR (African American) 7.9; Est GFR (Non-African American) 6.8; Globulin 4.3 gm/dl (2.5-4.0); Magnesium 2.5 mg/dl (1.8-2.4); Phosphorus 4.3 mg/dl (2.5-4.9); Potassium 4.5 mmol/L (3.5-5.1); Total Protein 7.6 gm/dl (6.4-8.2); Troponin I 0.097 ng/ml (0-0.045)
[2019-09-26] MEDS ORDERED: OPTIRAY 320 125ml IV PRN (05:55)
[2019-09-26] MEDS ORDERED: ICU PROTOCOL FOR HYPERGLYCEMIA PRN (06:19)
[2019-09-26] MEDS ORDERED: STAT IV Infusion **Titration per Protocol STA ×3 (06:19→12:53)
[2019-09-26] MEDS ORDERED: propofoL 1,000 MG/100 ML VIAL IV SCH (06:19)
[2019-09-26] MEDS ORDERED: LORazepam 2 MG/4 ML VIAL IV PRN (06:19)
[2019-09-26 06:36] LABS: iSTAT Allen Test Pass; iSTAT Art Bld Gas pCO2 Correct 48 mmHg (35-46); iSTAT Art Bld Gas pH Corrected 7.367 (7.35-7.45); iSTAT Arterial Blood Gas HCO3 27 meg/L (19-24); iSTAT Arterial Blood Gas pCO2 48 mmHg (35-46); iSTAT Arterial Blood Gas pH 7.37 (7.35-7.45); iSTAT Arterial Blood Gas pO2 168 mmHg (80-95); iSTAT Arterial Blood Gas pO2 C 168; iSTAT Carbon Dioxide 29 mmol/L (24-31); iSTAT FiO2 60 %; iSTAT Hematocrit 45 % (37-47); iSTAT Hemoglobin 15.3 g/dl (12.0-16.0); iSTAT Potassium 4.1 mmol/L (3.3-5.0); iSTAT Site R Radial; iSTAT Sodium 140 mmol/L (135-144)
[2019-09-26 06:48] LABS: Hematocrit (blood only) 44.9 % (37-47); Hemoglobin 13.2 g/dL (12.0-16.0); Mean Corpuscular Hemoglobin 30.7 pg (25-34); Mean Corpuscular Hgb Conc 29.4 g/dL (32-36); Mean Corpuscular Volume 104.4 fL (80-100); Mean Platelet Volume 11.6 fL (7.4-10.4); Nucleated RBC # (auto) 0.06 K/uL (0-0); Nucleated RBC % (auto) 0.4 %; Platelet Count 109 K/uL (130-400); RDW Coefficient of Variation 19.5 % (11.5-14.5); RDW Standard Deviation 74.1 fL (36.4-46.3); White Blood Count 13.14 K/uL (4.8-10.8)
--- NOTE | 2019-09-26 06:55 | Critical Care Consultation ---
Date of Consultation September 26, 2019 Assessment & Plan (1) Seizure: Reason Critically Ill: 54-year-old female with ESRD, admitted to the hospital with AMS and A. fib RVR, transferred to the ICU after code purple for seizure and required intubation Neuro - Sedation: Propofol Seizurespatient with seizure on the floor requiring Ativan, loaded with Keppra, intubated and placed on propofol drip -Questionable whether patient had recent seizures, not placed on home antiseizure regimen -Had intracranial hemorrhage following fall last year, required Craniotomy and shunt; unsure of patient's baseline exam but [facility] -CT of head with and without contrast negative for acute process -EEG pending -Nephrology consulted, follow-up recs AMSunsure of etiology at this time -Imaging as above -History of intracranial hemorrhage as discussed above -BUN mildly elevated as patient is on dialysis -LFTs within normal limits -Consider infectious process however patient is afebrile and initial WBC within normal limits, will start on empiric antibiotics -Neurology consulted -See seizure treatment above Cardiac - Hypotensionpatient takes midodrine as they are ESRD -Initially normotensive but became hypotensive following administration of sedation and benzos, now requiring levo drip -We will attempt to wean but may need central venous access A. fib RVRrate controlled on Cardizem drip, will wean as tolerated -Patient not on anticoagulation for history of intracranial hemorrhage -TSH within normal limits -Continue monitoring on telemetry -Restart MTP Respiratory - Acute on chronic hypoxic respiratory failure -Patient wears 2 L nasal cannula at baseline, history COPD -Intubated for respiratory protection as patient was agonal breathing and unresponsive following seizure -Current vent settings 20/5/400/40%, SBT once patient's neuro status improves -PRN nebs -Monitor continuous pulse ox GI - N.p.o. RENAL/LYTES - ESRDpatient with hemodialysis MWF -Neurology consulted, follow-up recs -Monitor electrolytes with routine BMPs - An uric ENDO - No history of diabetes or thyroid disease -ICU hyperglycemic protocol HEME - Chronic anemiatakes epoetin, H&H currently stable Thrombocytopeniachronic -Currently stable will monitor ID - Start empiric antibiotics, Rocephin and Vanco -Blood cultures pending -Currently afebrile, no leukocytosis Obtaining rapid COVID as patient was from a jail LINES/IV ACCESS - PIV's DVT PROPHYLAXIS - SCDs, heparin CODE STATUS: Full code I have personally spent 60 minutes of critical care time in the direct management of this patient. This is a life/limb threatening event. This includes time spent evaluating patient, direct bedside care, chart review, placing orders, interpretation of diagnostic studies, discussion with consultants, patient, and family members, as well as other required patient management activities. This time is exclusive of all separately billable procedures, and teaching time and separate from and in addition to any other critical care service time. Thank you for allowing us to participate in the care of this patient. Please refer to my attending physician's documentation for any further recommendations. (2) Acute and chronic respiratory failure: (3) Atrial fibrillation with rapid ventricular response: (4) CHF (congestive heart failure): (5) AMS (altered mental status): (6) Thrombocytopenia: (7) COPD (chronic obstructive pulmonary disease): (8) ESRD (end stage renal disease): (9) Anemia: History of Present Illness Attending Physician: Jatinder Prasad MD History of Present Illness Ms. Preston is a 54-year-old female presented yesterday from [facility] who had experienced altered mental status during a dialysis appointment and was brought into the ED yesterday. She has a PMH of ESRD (on hemodialysis MWF), COPD (on 2 L baseline), s/p AVR, s/p craniotomy and shunt after fall with traumatic head injury 2019, thrombocytopenia, anemia. There is questionable recent history of seizure activity which the patient was said to be having shaking episodes intermittently for the past month, was not diagnosed with seizures and not on antiseizure medications. She was admitted to PCU with Ronald MARIE and was being treated with Cardizem drip. Tristin borden was called early this morning as the patient had had a seizure and there was concern that she was not protecting her airway postictal. On arrival to the room, I noticed that the patient was actively seizing with a rhythmic eye twitching and myoclonic jerks of the left upper extremity. 2 mg of lorazepam was emergently administered, and the patient appeared to have stopped seizing but was unarousable with agonal breathing. She was emergently intubated by the ED physician. She was given loading dose of Keppra. Following intubation, patient began to have rhythmic twitches the head which were subtle but may have been seizure activity, patient was placed on propofol drip. Likely due to sedation and benzo administration patient did become hypotensive and she was placed on levo drip, of note patient does take midodrine home med. She was taken for a stat CT of the head W/W0 contrast, which was negative for acute process. EEG ordered statin pending read. I spoke with neurology on the phone and updated them and placed consult, he is coming the bedside evaluate the patient. Patient to remain in ICU for further management at this time. Allergies Allergy/AdvReac Type Severity Reaction Status Date / Time morphine Allergy Intermediate Photosensit Verified 09/25/19 12:03 ivity nitroglycerin Allergy Mild Nausea Verified 09/25/19 12:03 Home Medications Home Medications Medication Instructions Recorded Confirmed Type Combivent Respimat 2 puff INHALATION Q4 PRN 12/02/18 09/25/19 History acetaminophen 650 mg PO Q6H PRN MDD 3g/24hr 12/02/18 09/25/19 History acetaminophen 650 mg PO Q6H PRN MDD x1 dose 12/02/18 09/25/19 History allopurinol 100 mg PO DAILY 12/02/18 09/25/19 History calcium acetate(phosphat bind) 1,334 mg PO TIDM 12/02/18 09/25/19 History digoxin 125 mcg PO 2XWK 12/02/18 09/25/19 History metoprolol succinate 12.5 mg PO BID 12/02/18 09/25/19 History ondansetron HCl [Zofran] 4 mg PO Q6H PRN 12/02/18 09/25/19 History ropinirole 0.5 mg PO HS 12/02/18 09/25/19 History Aspercreme Heat 1 applic TOPICAL Q8H PRN 05/01/19 09/25/19 History aspirin 81 mg PO DAILY 05/01/19 09/25/19 History bisacodyl [Dulcolax (bisacodyl)] 10 mg [place] DAILY PRN 05/01/19 09/25/19 History famotidine 20 mg PO BID 05/01/19 09/25/19 History folic acid 1 mg PO DAILY 05/01/19 09/25/19 History midodrine 10 mg PO DAILY 05/01/19 09/25/19 History oxycodone-acetaminophen 5 mg-325 1 tab PO Q6H PRN 06/08/19 09/25/19 History mg tablet Renal Vitamin 1 tab PO DAILY 07/14/19 09/25/19 History omeprazole 40 mg PO DAILY 07/14/19 09/25/19 History sertraline 50 mg PO DAILY 07/14/19 09/25/19 History trazodone 150 mg PO HS 07/14/19 09/25/19 History lorazepam 0.5 mg PO Q8 PRN 08/01/19 09/25/19 History sertraline 25 mg PO DAILY 08/01/19 09/25/19 History Patient History Medical History (Updated 09/26/19 @ 07:56 by CARLOS Delcid) Anemia of chronic disease including ESRD Atrial fibrillation warfarin stopped 12/2018 d/t bleed; follows [facility] Chronic diastolic heart failure -d/t hypertensive heart disease; follows [facility] Dialysis patient 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 [facility] Malnutrition Thrombocytopenia Surgical History (Updated 09/26/19 @ 07:56 by CARLOS Delcid) Acute thoracic aortic dissection Type I s/p 2009 repair [facility] AV (arteriovenous fistula) L proximal radial basilic May 2019 [facility] AV fistula occlusion thrombosed L radiocephalic October 2018 [facility] H/O craniotomy Hx of craniotomy for evacuation of IPH/IVH hematoma w/ EVD placement then s/p L frontal END WORKER shunt 12/2018 [facility] S/P AVR (aortic valve replacement) and aortoplasty bioprosthetic AVR, root and arch aneurysm repair and coronary reimplantation May 2014 [facility] Social History Preferred Language: Syriac Communication Ability: Effective 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 Beliefs That Will Affect Care: None marital status: Current Living Situation: Custodial Feels Safe at Home: Yes Smoking Status: Unknown if ever smoked Review of Systems Review of Systems: Unobtainable due to cognitive status and Unobtainable due to endotracheal tube Physical Exam Constitutional: + ill appearing and + mechanically ventilated Eyes: PERRL, conjunctivae normal, anicteric sclerae ENMT: external ear and nose normal, oropharynx normal Neck: trachea midline, no thyromegaly Respiratory: symmetric chest movement Cardiovascular: Rate/Rhythm: + irregularly irregular Vessels: no JVD Extremities: no edema Gastrointestinal (Abdomen): Inspection/Auscultation: abdomen normal to inspection and normal bowel sounds; abdomen not distended Neurologic: Patient currently intubated and sedated, cough gag corneal intact. Responds to painful stimuli. Does not follow commands. Prior to intubation patient was having myoclonic jerks of the left upper extremity and rhythmic eye twitching. Psychiatric: Unable to assess due to sedation Genitourinary: Anuric Results & Data Results & Data ([facility]) Vital Signs (Past 12 Hours) Vital Signs Temp Pulse Pulse Resp BP BP Pulse Ox 09/26/19 06:44 112 H 09/26/19 06:40 113 H 97 09/26/19 06:36 110 H 121/79 97 09/26/19 06:35 105 H 97 09/26/19 06:30 106 H 98 09/26/19 06:25 110 H 98 09/26/19 06:22 111 H 98 09/26/19 06:21 106 H 119/75 98 09/26/19 06:20 117 H 119/73 98 09/26/19 06:15 110 H 98 09/26/19 06:10 113 H 98 09/26/19 06:05 100 H 22 99 09/26/19 06:00 37.1 C 110 H 16 99 09/26/19 03:58 111 H 103/68 09/26/19 03:25 109 H 26 H 95 09/25/19 23:08 36.4 C L 126 H 19 93/56 L 97 09/25/19 23:05 118 H 103/56 L 09/25/19 22:55 110 H 09/25/19 22:17 128 H 26 H 96 09/25/19 20:20 128 H 103/69 09/25/19 19:29 36.9 C 111 H 23 108/71 95 09/25/19 19:16 118 H 20 98 Coding Level of Care Code Critical Care 1st 30-74 mins Diagnoses Seizure R56.9 Acute and chronic respiratory failure J96.20 Atrial fibrillation with rapid ventricular response I48.91 CHF (congestive heart failure) I50.9 Heart failure chronicity: acute Heart failure type: unspecified AMS (altered mental status) R41.82 Altered mental status type: unspecified Thrombocytopenia D69.6 COPD (chronic obstructive pulmonary disease) J44.9 ESRD (end stage renal disease) N18.6 Anemia D64.9 (1) CHF (congestive heart failure) Heart failure chronicity: acute Heart failure type: unspecified Qualified Code(s): I50.9 - Heart failure, unspecified (2) AMS (altered mental status) Altered mental status type: unspecified Qualified Code(s): R41.82 - Altered mental status, unspecified
[2019-09-26 07:08] LABS: Fibrinogen 107 mg/dl (184-400); INR 1.8 (0.9-1.1); Partial Thromboplastin Ratio 1.1; Partial Thromboplastin Time 29.9 Seconds (21.0-31.0); Prothrombin Time 18.5 Seconds (9.0-12.0)
[2019-09-26] MEDS ORDERED: VANCOMYCIN CONSULT ACTIVE PRN (07:18)
--- NOTE | 2019-09-26 07:24 | CT Scan Report ---
CT angio head wo/w HISTORY: 54 years-old Female Seizure, afib acute seizure with atrial fibrillation COMPARISON: Head CT 07/14/2019 TECHNIQUE: CTA of the head was obtained both with and without the use of 118 mL Optiray [address] All measurements were obtained according to NASCET criteria. 3-D coronal and sagittal MIPS were o btained from the axial data set and submitted for review. A dose lowering technique was used consiste nt with the principals of BOOGIE. FINDINGS: CT HEAD: Left frontal approach ventriculostomy catheter is unchanged. The ventricles are decompressed. Encepha lomalacia of the right occipital lobe is redemonstrated. Prior right parietal-occipital craniotomy. N o acute intracranial hemorrhage, midline shift, abnormal extra-axial collections, hydrocephalus or ac rasta territorial infarct. Cerebral vascular calcifications. Unchanged hypodensities of the left aspect of the rosa maria suggestive of artifact versus remote insult. No acute calvarial fracture. Mastoid air ce lls and paranasal sinuses are clear. Partially imaged endotracheal tube. Soft tissues and orbits are unremarkable. CTA HEAD: There is no abnormal intracranial enhancement identified. The imaged bilateral internal carotid arter ies are patent. Calcified plaque of the cavernous and supraclinoid segments without high-grade stenos is. There is at least moderate calcified plaque of the bilateral carotid bulbs, left greater the righ t with multifocal mild luminal narrowing and multifocal luminal irregularity. There is mild multifoca l luminal narrowing involving the bilateral middle cerebral arteries which are patent, left greater t otero right. Mild multifocal luminal narrowing is also noted involving the left A1 segment. Diminutive right A1 segment is likely developmental. Severe calcified plaque of the V4 segment right vertebral artery with luminal narrowing measuring up to approximately 60%. Patent basilar artery. Mild multifocal luminal narrowing of the posterior cereb ral arteries. There is no aneurysm, dissection or proximal branch occlusion. Cerebral venous sinuses appear patent. IMPRESSION: 1. No aneurysm, dissection, or proximal branch occlusion. 2. Severe calcified plaque involves the V4 segment right vertebral artery with luminal narrowing mitesh uring up to approximately 60%. 3. Mostly mild multifocal luminal narrowing of the intracranial arteries likely secondary to underlyi ng atherosclerotic vascular disease. 4. Chronic findings as above without acute intracranial abnormality identified. ACT 112: Negative or not required by law. The above report was generated using voice recognition software. It may contain grammatical, syntax o r spelling errors. Electronically signed by: Sukumar Ace M.D. 09/26/2019 7:23 AM
[2019-09-26] MEDS ORDERED: VANCOMYCIN HCL 1,750 MG in SODIUM CHLORIDE 0.9% 500 ML IV ONE (07:30)
--- NOTE | 2019-09-26 07:48 | Communication Note ---
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 When I got to the room patient was post ictal and clearly more lethargic than she had been previously. She then went into a second tonic clonic generalized seizure. This lasted approximately 45 seconds during which point patient became apneic. Patient was given 2 mg of ativan. Patients breathing was irregular and with her two apneic episodes with the seizures decision was made to intubate patient and transfer to ICU. CT head pending.
--- NOTE | 2019-09-26 07:58 | XRay Report ---
XR chest 1V portable CLINICAL HISTORY: hypoxia dyspnea COMPARISON STUDY: 09/25/2019 FINDINGS: Placement of an endotracheal tube 2 cm above the travis. Increased prominence of pulmonary vasculature. Chronic elevation right hemidiaphragm. Diffuse ectasia and dilatation thoracic aorta mos t likely unchanged compared to the prior study due to technical variation. Unchanging consolidative/a telectatic change right lung base. IMPRESSION: Mildly progressive components of congestive failure. Endotracheal tube 2 cm above the ca carl. ACT 112: Negative or not required by law. The above report was generated using voice recognition software. It may contain grammatical, syntax or spelling errors. Electronically signed by: Castro Lancaster M.D. 09/26/2019 7:57 AM
[2019-09-26 08:16] LABS: Basophils # (auto) 0.02 K/uL (0-0.2); Basophils % (auto) 0.2 %; Eosinophils # (auto) 0.03 K/uL (0-0.5); Eosinophils % (auto) 0.2 %; Immature Granulocytes # (auto) 0.07 K/uL (0.00-0.02); Immature Granulocytes % (auto) 0.5 %; Lymphocytes # (auto) 0.82 K/uL (1.2-3.4); Lymphocytes % (auto) 6.2 %; Monocytes # (auto) 0.82 K/uL (0.11-0.59); Monocytes % (auto) 6.2 %; Neutrophils # (auto) 11.38 K/uL (1.4-6.5); Neutrophils % (auto) 86.7 %
--- NOTE | 2019-09-26 08:44 | Electroencephalogram ---
EEG Procedure Note Date of Service September 26, 2019 Start / End Times Start Time: 641 End Time: 701 Referring Physician Ricardo GONZALEZ History [facility] Home Medication List Home Medications Medication Instructions Recorded Confirmed Type Combivent Respimat 2 puff INHALATION Q4 PRN 12/02/18 09/25/19 History acetaminophen 650 mg PO Q6H PRN MDD 3g/24hr 12/02/18 09/25/19 History acetaminophen 650 mg PO Q6H PRN MDD x1 dose 12/02/18 09/25/19 History allopurinol 100 mg PO DAILY 12/02/18 09/25/19 History calcium acetate(phosphat bind) 1,334 mg PO TIDM 12/02/18 09/25/19 History digoxin 125 mcg PO 2XWK 12/02/18 09/25/19 History metoprolol succinate 12.5 mg PO BID 12/02/18 09/25/19 History ondansetron HCl [Zofran] 4 mg PO Q6H PRN 12/02/18 09/25/19 History ropinirole 0.5 mg PO HS 12/02/18 09/25/19 History Aspercreme Heat 1 applic TOPICAL Q8H PRN 05/01/19 09/25/19 History aspirin 81 mg PO DAILY 05/01/19 09/25/19 History bisacodyl [Dulcolax (bisacodyl)] 10 mg UT DAILY PRN 05/01/19 09/25/19 History famotidine 20 mg PO BID 05/01/19 09/25/19 History folic acid 1 mg PO DAILY 05/01/19 09/25/19 History midodrine 10 mg PO DAILY 05/01/19 09/25/19 History oxycodone-acetaminophen 5 mg-325 1 tab PO Q6H PRN 06/08/19 09/25/19 History mg tablet Renal Vitamin 1 tab PO DAILY 07/14/19 09/25/19 History omeprazole 40 mg PO DAILY 07/14/19 09/25/19 History sertraline 50 mg PO DAILY 07/14/19 09/25/19 History trazodone 150 mg PO HS 07/14/19 09/25/19 History lorazepam 0.5 mg PO Q8 PRN 08/01/19 09/25/19 History sertraline 25 mg PO DAILY 08/01/19 09/25/19 History Inpatient Medication List Calcium Acetate (Phoslo) 1,334 mg PO TIDM [facility] Stop: 10/25/19 16:59 Last Admin: 09/25/19 17:21 Dose: Not Given Documented by: [id number] Famotidine (Pepcid) 20 mg PO BID [facility] Stop: 10/25/19 20:59 Last Admin: 09/25/19 20:01 Dose: Not Given Documented by: [id number] Diltiazem HCl 125 mg/ Dextrose 125 mls @ 0 mls/hr IV .Q0M [facility]; Protocol Stop: 10/25/19 13:14 Last Titration: 09/26/19 05:24 Dose: 0 mg/hr, 0 mls/hr Documented by: [id number] Cosigned by: [id number] Admin: 09/25/19 23:35 Dose: 10 mg/hr, 10 mls/hr Documented by: [id number] Cosigned by: [id number] Titration: 09/25/19 23:35 Dose: 10 mg/hr, 10 mls/hr Documented by: [id number] Cosigned by: [id number] Titration: 09/25/19 15:08 Dose: 10 mg/hr, 10 mls/hr Documented by: [id number] Cosigned by: [id number] Titration: 09/25/19 14:52 Dose: 5 mg/hr, 5 mls/hr Documented by: [id number] Cosigned by: [id number] Titration: 09/25/19 13:55 Dose: 10 mg/hr, 10 mls/hr Documented by: [id number] Cosigned by: [id number] Admin: 09/25/19 13:30 Dose: 5 mg/hr, 5 mls/hr Documented by: [id number] Cosigned by: [id number] Norepinephrine Bitartrate 8 mg (/ Dextrose) 508 mls @ 16.116 mls/hr IV .Q24H [facility]; Protocol Stop: 10/26/19 05:14 Last Titration: 09/26/19 07:19 Dose: 0.1 mcg/kg/min, 32.2 mls/hr Documented by: [id number] Cosigned by: [id number] Admin: 09/26/19 06:26 Dose: 0.1 mcg/kg/min, 32.2 mls/hr Documented by: [id number] Cosigned by: [id number] Propofol (Diprivan) 1,000 mg in 100 mls @ 10.152 mls/hr IV .Q9H52M [facility]; Protocol Stop: 09/29/19 06:18 Last Titration: 09/26/19 07:19 Dose: 15 mcg/kg/min, 7.6 mls/hr Documented by: [id number] Cosigned by: [id number] Admin: 09/26/19 06:33 Dose: 15 mcg/kg/min, 7.6 mls/hr Documented by: [id number] Cosigned by: [id number] Ioversol (Optiray 320 125ml) 125 ml IV ONCE PRN PRN Reason: Interaction Checking Stop: 09/30/19 05:54 Last Admin: 09/26/19 05:55 Dose: 118 ml Documented by: [id number] Metoprolol Tartrate (Lopressor) 5 mg IV Q4 [facility] Stop: 10/25/19 19:59 Last Admin: 09/26/19 03:58 Dose: 5 mg Documented by: [id number] Admin: 09/25/19 23:05 Dose: 5 mg Documented by: [id number] Admin: 09/25/19 20:20 Dose: 5 mg Documented by: [id number] Discontinued Medications Diltiazem HCl (Cardizem) 10 mg IV NOW STA Stop: 09/25/19 13:16 Last Admin: 09/25/19 13:30 Dose: 10 mg Documented by: [id number] Cosigned by: [id number] Furosemide (Lasix) 40 mg IV NOW STA Stop: 09/25/19 13:22 Last Admin: 09/25/19 13:30 Dose: 40 mg Documented by: [id number] Lorazepam (Ativan) 0.5 mg in 1 mls @ 1 mls/min IV NOW STA Stop: 09/25/19 17:27 Last Admin: 09/26/19 06:26 Dose: Not Given Documented by: [id number] Lactated Ringer's (Lr) 250 mls @ 999 mls/hr IV .Q16M ONE Stop: 09/25/19 17:43 Last Infusion: 09/25/19 18:56 Dose: 0 mls/hr Documented by: [id number] Admin: 09/25/19 18:07 Dose: 999 mls/hr Documented by: [id number] Lactated Ringer's (Lr) 250 mls @ 999 mls/hr IV .Q16M ONE Stop: 09/25/19 20:11 Last Infusion: 09/25/19 20:21 Dose: 0 mls/hr Documented by: [id number] Admin: 09/25/19 20:00 Dose: 999 mls/hr Documented by: [id number] Levetiracetam 1,000 mg/ Sodium (Chloride) 110 mls @ 440 mls/hr IV NOW STA Stop: 09/26/19 04:39 Last Infusion: 09/26/19 05:25 Dose: 0 mls/hr Documented by: [id number] Admin: 09/26/19 04:53 Dose: 440 mls/hr Documented by: [id number] Albumin Human (Albumin 25%) 50 mls @ 50 mls/hr IV ONE ONE Stop: 09/26/19 05:33 Last Infusion: 09/26/19 05:24 Dose: 0 mls/hr Documented by: [id number] Admin: 09/26/19 05:23 Dose: 50 mls/hr Documented by: [id number] Lorazepam (Ativan) Confirm Administered Dose 2 mg .ROUTE .STK-MED ONE Stop: 09/25/19 17:34 Last Admin: 09/25/19 18:56 Dose: Not Given Documented by: [id number] Lorazepam (Ativan) Confirm Administered Dose 2 mg .ROUTE .STK-MED ONE Stop: 09/26/19 04:24 Last Admin: 09/26/19 04:43 Dose: 2 mg Documented by: [id number] Lorazepam (Ativan) Confirm Administered Dose 2 mg .ROUTE .STK-MED ONE Stop: 09/26/19 04:31 Last Admin: 09/26/19 04:55 Dose: 2 mg Documented by: [id number] Miscellaneous () 1 ea N/A NOW STA Stop: 09/25/19 13:16 Last Admin: 09/25/19 13:30 Dose: Not Given Documented by: [id number] Miscellaneous () Confirm Administered Dose 1 ea .ROUTE .STK-MED ONE Stop: 09/26/19 04:41 Last Admin: 09/26/19 06:25 Dose: 1 ea Documented by: [id number] Pneumococcal Polyvalent Vaccine (Pneumovax-23) 25 mcg IM .ONCE ONE Stop: 09/25/19 19:16 Last Admin: 09/26/19 07:32 Dose: Not Given Documented by: [id number] Description This is a 21 electrode EEG with a single channel dedicated to limited EKG. The electrodes were placed in accordance with the International 10-20 system. Interpretation The predominant background activity consists of a very irregular 5-6 Hz activity, of up to 40 mV in amplitude,seen symmetrically distributed over the posterior head regions, spreading anteriorly diffusely. This activity has no attenuation with alerting procedures. Photic stimulation and Hyperventilation were not performed on this ICU bedside EEG. A minimal amount of muscle and movement artifact activity contaminated the recording and did not hinder interpretation to any significant degree. Throughout this recording, no focal abnormalities, or potentially epileptogenic discharges are seen. However, the generalized low-amplitude slowing was persistent throughout the recording and sleep was not recorded. In summary, this EEG was abnormal and showed moderate generalized dysrhythmia without focal abnormality or potentially epileptogenic discharges. Clinical Correlation The abscence of potentially epileptogenic activity does not exclude a seizure disorder, since interictally, EEGs can be normal. The slowing seen in general on this recording correlate with a moderate encephalopathy which could be due to wide variety of causes, including postictal. [facility] EEG Procedure Codes Indication for Procedure (1) Seizure: (2) Altered mental state: Neurology Neurology: 90603 EEG include record awake & drowsy
[2019-09-26] MEDS ORDERED: PANTOprazole 40 MG TAB PO SCH (09:00)
[2019-09-26] MEDS ORDERED: ASPIRIN 81 MG ECTAB PO SCH (09:00)
[2019-09-26] MEDS ORDERED: SERTRALINE HCL 50 MG TABLET PO SCH ×2 (09:00)
[2019-09-26] MEDS ORDERED: allopurinoL 100 MG TAB PO SCH (09:00)
[2019-09-26] MEDS ORDERED: PANTOprazole 40 MG in SYRINGE 0 ML IV SCH (09:00)
[2019-09-26] MEDS ORDERED: NEPHROCAPS PO SCH (09:00)
[2019-09-26] MEDS: CALCIUM ACETATE 667 MG CAP/TAB PO SCH (09:56)
[2019-09-26] MEDS ORDERED: allopurinoL 100 MG TAB OG SCH (10:00)
[2019-09-26] MEDS: PHENYLEPHRINE HCL 20 MG in DEXTROSE 5% 500 ML IV SCH ×2 (10:04→23:41)
[2019-09-26] MEDS: HEPARIN SOD 5,000 UNIT/0.5 ML VIAL SQ SCH ×2 (10:05→20:31)
--- NOTE | 2019-09-26 10:05 | Neurology Consultation ---
Date of Consultation September 26, 2019 Assessment & Plan (1) Seizure: (2) Acute encephalopathy: (3) Encephalomalacia: (4) Atrial fibrillation with rapid ventricular response: Patient has a history of large right posterior hemispheric intercerebral hemorrhage with intraventricular extension, edema, and midline shift in December of 2018, requiring craniotomy to remove blood and have a shunt placed. She had been fairly stable although would have times of altered mental status over the ensuing months. This was multifactorial and largely due to hypoxia from COPD and complications from her renal disease. She also has had an episode of shaking during dialysis in July of this year, and now 2 witnessed generalized tonic-clonic seizures earlier this morning. The etiology of the seizures is likely multifactorial and hypoxia certainly could trigger generalized seizures. In addition her severe right hemispheric encephalomalacia from previous hemorrhage would put her at great risk for seizure activity (particularly with compounding conditions such as hypoxia, infection, medication, endocrine or metabolic imbalances including renal failure). I see no evidence of seizure activity today on examination or by EEG. I do see occasional myoclonic jerks of the limbs. These are nonspecific and are likely related to her hypoxic/metabolic state. She has atrial fibrillation with rapid ventricular response. There is no evidence for focal abnormalities on exam or by EEG. Nevertheless, a small stroke cannot entirely be excluded. Recommendations: 1. Continue levetiracetam 500 milligrams twice daily (check with nephrology to see if dosing needs to be modified). 2. If myoclonic jerks continue to increase or she has increased seizure activity I would convert her to valproic acid 250 milligrams every 6 hours (after loading dose of 500 milligrams). Again, I would check with nephrology to see if dosing modification as needed). 3. Keep off propofol if able and see if she can improve her mental status on her own. If so perhaps she could be extubated as well. 4. The patient could be anticoagulated because of atrial fibrillation to prevent stroke. I would not load her but simply pick a dose and initiate. I would leave the choice of anticoagulant to Cardiology/Nephrology. For now, she can have DVT prophylaxis anticoagulation. 5. Ideally, an MRI of the brain would be useful but we cannot get this until she is extubated. 6. If there is any concern for additional seizure activity a repeat EEG could be obtained. 7. Consider TSH, folate, and B12 (note elevated MCV). Otherwise, I spent a total of 105 minutes on this case including review of records, review of CT films, direct evaluation the patient at bedside, and discussion of the case with the patient at bedside, RN at bedside, and doctors El, including differential diagnosis and treatment options. History of Present Illness Reason for Consultation: Patient is a 54-year-old, who I was asked to see at the request of Ricardo GONZALEZ, for neurologic consultation regarding seizures and altered mental status. Requesting Physician: Ricardo GONZALEZ Attending Physician: Gabe Jaime MD History of Present Illness Patient is a 54-year-old with history of end-stage renal disease on dialysis, COPD and congestive heart failure. She gets dialysis every Wednesday and currently lives at [facility]. Back in December of 2018 she had the onset of headache in hitting her left forehead. She had confusion in the emergency room was noted on CT scan to have a very large right posterior parietal/occipital interest cerebral hemorrhage wit h intraventricular extension, mass effect and 7 millimeter midline shift. I reviewed this CT film. She was life flighted to [facility], a right craniotomy was performed, and a shunt placed. On July 13, she was confused and during dialysis had a shaking episode which was possibly a seizure. She was admitted and taken off because it was giving her confusion. They noticed that she was in atrial flutter which was known in the past and was a possible left lower lobe pneumonia. She was not given anticonvulsants and her clinical condition improved with treatment. On [facility] she came to the ER for hypoxia and shortness of breath. This was treated and she was discharged. Subsequent CT scans in July revealed significant encephalomalacia in the right posterior parietal/occipital head region and the shunt was placed with small ventricles. There was no hemorrhage in these films. On September 23 she was somewhat confused and had some pain was given Percocet. On September 24 she was found confused and was undergoing dialysis. She was agitated and somewhat hypoxic. She was then transferred to the emergency room. She was not dialyzed completely. On September 24 at 1148 temperature was 37.0, pulse 136, respiratory rate 20, blood pressure 107/94, and O2 saturation was anywhere from 97-100 on non-rebreather at 15. She was in atrial fibrillation and has remained in atrial fibrillation. On exam she was sleepy but arouses to voice. She was oriented only to person but was moving all extremities. Hemoglobin, hematocrit, and white count were unremarkable. MCV was elevated at 106. Chem profile was remarkable for a BUN of 43 and creatinine of 5.46. Glucose was 103, calcium 10.3, lactate 2.8, alk-phos 123, total bili 1.3. Digoxin level is 0.1. Somewhere between 4 and 430 in the morning she was noted to have a seizure. By the time the resident got to the room seizure was over and she was confused and not responding well. She had a no other seizure of a generalized tonic-clonic fashion (uncertain details) and was given 2 milligrams of Ativan at 0443 and another 2 milligrams Ativan at 0455. She was then given 1 gram of levetiracetam at 0525. The patient has had no more seizures. However, she was hypoxic and not breathing well having apneic periods. She was intubated and transferred to the ICU. She was put on propofol. There was some concern regarding seizure activity in the ICU. An EEG was performed between 0630 and 0700 -it shows moderate generalized slowing of a relatively low amplitude. There are no focal abnormalities or potentially epileptogenic discharges seen. This EEG was consistent with a moderate to severe encephalopathy (which could include postictal). This morning, white count was elevated at 13.1 lactate 3.3 BUN 47 and creatinine 6.31. Mag was 2.[address] in [address] bili [address]. CT angiography of the head revealed some plaque diffusely with 60 percent stenosis in the right V4 area . CT scan of the head revealed encephalomalacia as before and no hemorrhage. Images were somewhat blurred due to movement. Allergies Allergy/AdvReac Type Severity Reaction Status Date / Time morphine Allergy Intermediate Photosensit Verified 09/25/19 12:03 ivity nitroglycerin Allergy Mild Nausea Verified 09/25/19 12:03 Home Medications Home Medications Medication Instructions Recorded Confirmed Type Combivent Respimat 2 puff INHALATION Q4 PRN 12/02/18 09/25/19 History acetaminophen 650 mg PO Q6H PRN MDD 3g/24hr 12/02/18 09/25/19 History acetaminophen 650 mg PO Q6H PRN MDD x1 dose 12/02/18 09/25/19 History allopurinol 100 mg PO DAILY 12/02/18 09/25/19 History calcium acetate(phosphat bind) 1,334 mg PO TIDM 12/02/18 09/25/19 History digoxin 125 mcg PO 2XWK 12/02/18 09/25/19 History metoprolol succinate 12.5 mg PO BID 12/02/18 09/25/19 History ondansetron HCl [Zofran] 4 mg PO Q6H PRN 12/02/18 09/25/19 History ropinirole 0.5 mg PO HS 12/02/18 09/25/19 History Aspercreme Heat 1 applic TOPICAL Q8H PRN 05/01/19 09/25/19 History aspirin 81 mg PO DAILY 05/01/19 09/25/19 History bisacodyl [Dulcolax (bisacodyl)] 10 mg NC DAILY PRN 05/01/19 09/25/19 History famotidine 20 mg PO BID 05/01/19 09/25/19 History folic acid 1 mg PO DAILY 05/01/19 09/25/19 History midodrine 10 mg PO DAILY 05/01/19 09/25/19 History oxycodone-acetaminophen 5 mg-325 1 tab PO Q6H PRN 06/08/19 09/25/19 History mg tablet Renal Vitamin 1 tab PO DAILY 07/14/19 09/25/19 History omeprazole 40 mg PO DAILY 07/14/19 09/25/19 History sertraline 50 mg PO DAILY 07/14/19 09/25/19 History trazodone 150 mg PO HS 07/14/19 09/25/19 History lorazepam 0.5 mg PO Q8 PRN 08/01/19 09/25/19 History sertraline 25 mg PO DAILY 08/01/19 09/25/19 History Patient History Medical History (Updated 09/26/19 @ 09:50 by Jason Bolton MD) Anemia of chronic disease including ESRD Atrial fibrillation warfarin stopped 12/2018 d/t bleed; follows [facility] [place] Chronic diastolic heart failure -d/t hypertensive heart disease; follows [facility] [place] Dialysis patient Intraventricular hemorrhage large IPH/IVH s/p STRATEGY LEAD shunt 12/2018 [facility] [place] Malnutrition Thrombocytopenia Surgical History (Updated 09/26/19 @ 09:53 by Jason Bolton MD) Acute thoracic aortic dissection Type I s/p 2009 repair [facility] [place] AV (arteriovenous fistula) L proximal radial basilic May 2019 [facility] [place] AV fistula occlusion thrombosed L radiocephalic October 2018 [facility] [place] H/O section H/O craniotomy Hx of craniotomy for evacuation of IPH/IVH hematoma w/ EVD placement then s/p L frontal STRATEGY LEAD shunt 12/2018 [facility] [place] S/P AVR (aortic valve replacement) and aortoplasty bioprosthetic AVR, root and arch aneurysm repair and coronary reimplantation May 2014 [facility] [place] S/P tubal ligation Family History (Updated 09/26/19 @ 09:54 by Jason Bolton MD) Sister Cervical cancer Lupus (systemic lupus erythematosus) Other No pertinent family history in first degree relatives Denies family history of Myocardial infarction Social History (Updated 09/26/19 @ 09:55 by Jason Bolton MD) Preferred Language: Kyrgyz Communication Ability: Effective 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 Propofol was discontinued an as I watched her for 15-20 minutes after propofol was discontinued, she still would breathe with the machine. Blood pressure was 116/84 and O2 saturation was 97 percent. Temperature was 37.0. She was in atrial fibrillation with a heart rate in the 130s. Off of propofol she had some spontaneous movements of all 4 extremities. There was an occasional myoclonic jerking episode of the right upper extremity or left upper extremity. She did not have any twitching or tremor in the limbs. There was a pulsating movement of the upper chest consistent with her heartbeat and no other seizure activity was identified. Eyes open passively and eyes were dysconjugate with the left eye tending to drift outward and the right eye tended to drift downward. Neck was supple and eyes moved in all directions fairly easily. Briefly she may have some conjugate gaze but most of the time was dysconjugate. She was not responding to voice or following any commands. She would grimace with mild sternal rub. She had a positive cough and gag. Limbs had some tone in the upper extremities and increased tone in the lower extremities. She withdrew quickly in all 4 limbs to deep pain with grimacing. Reflexes were 2/4 in the biceps, triceps, brachioradialis and quadriceps tendons bilaterally. Achilles tendon reflexes were 1/4 bilaterally. Toes were upgoing on plantar stimulation bilaterally. Results & Data ([facility]) Vital Signs (Past 12 Hours) Vital Signs Temp Pulse Pulse Resp BP BP Pulse Ox 09/26/19 07:19 122 H 20 97 09/26/19 06:44 112 H 09/26/19 06:40 113 H 97 09/26/19 06:36 110 H 121/79 97 09/26/19 06:35 105 H 97 09/26/19 06:30 106 H 98 09/26/19 06:25 110 H 98 09/26/19 06:22 111 H 98 09/26/19 06:21 106 H 119/75 98 09/26/19 06:20 117 H 119/73 98 09/26/19 06:15 100 H 20 97 09/26/19 06:10 113 H 98 09/26/19 06:05 100 H 22 99 09/26/19 06:00 37.1 C 110 H 16 99 09/26/19 03:58 111 H 103/68 09/26/19 03:25 109 H 26 H 95 09/25/19 23:08 36.4 C L 126 H 19 93/56 L 97 09/25/19 23:05 118 H 103/56 L 09/25/19 22:55 110 H 09/25/19 22:17 128 H 26 H 96 PG Care Time/CCT Total # of Minutes Spent Total Time Spent with Patient: Total time spent is greater than 50% in coordination of care (as documented) at patient's floor/unit and/or counseling patient: Coding Level of Care Code 36575 Initial Inpt Care Lvl 3 Diagnoses Seizure R56.9 Acute encephalopathy G93.40 Encephalomalacia G93.89 Atrial fibrillation with rapid ventricular response I48.91 Time Spent (min) 105 Comment Add [id number] two the [id number]
[2019-09-26] MEDS: FAMOTIDINE 20 MG TAB PO SCH (10:30)
[2019-09-26] MEDS ORDERED: DIGOXIN 0.25 MG TAB PO ONE (10:30)
--- NOTE | 2019-09-26 10:47 | XRay Report ---
KUB HISTORY: Status post placement of an enteric tube ogt placement COMPARISON: Chest radiograph of same day at 5:16 AM FINDINGS: The bowel gas pattern is non-obstructive. Status post placement of an enteric tube, distal tip projected over the expected location of the proximal gastric body. Moderate fecal retention. Vasc ular calcifications. There is no organomegaly. No renal calculi. No ureteral calculi. No pneumoperit oneum or pneumatosis. No fracture. Prior median sternotomy with marked cardiomegaly. Calcification in dilation of the descending thoraci c aorta. Pleural effusions with bibasilar opacities. Partially imaged urinalysis catheter projects ov er the expected location of the right atrium. An additional catheter projects over the central chest and left lateral abdomen with distal tip extending inferiorly outside the [id number]. IMPRESSION: 1. Distal tip of the enteric tube projects over the expected location of the proximal gastric body. 2. Nonobstructive bowel gas pattern. 3. Moderate fecal retention. ACT 112: Negative or not required by law. The above report was generated using voice recognition software. It may contain grammatical, syntax o r spelling errors. Electronically signed by: Sukumar Ace M.D. 09/26/2019 10:46 AM
--- NOTE | 2019-09-26 11:22 | Pharmacy Report ---
Pharmacy Abx Dose Short Note - Date of Service September 26, 2019 - Assessment & Plan Assessment * 54 year old F receiving VANCOMYCIN + CEFTRIAXONE for empiric therapy x 48 hrs. Pharm consult for VANCOMYCIN dosing * Patient admitted to ICU overnight for possible seizure activity, leading to benzo + levetiracetam administration and intubation * Patient dose have h/o intraparenchymal/intraventricular hemorrhage w/ crani and shunt placement * Currently afebrile, + leukocytosis, + vasopressor support (norepi --> converted to phenylephrine this AM), + lactic acidosis * + MRSA nasal swab * CXR read as mildly progressive components of congestive failure * Patient does have h/o ESRD on HD --. No orders for HD at this time. Plan Vancomycin * 1750mg (~20mg/kg) loading dose x 1 * Will check random level w/ AM labs tomorrow * Will redose when level b/w 15-20mcg/mL or anticipated to be so following HD session * Goal trough level for unknown source of infxn, possible BUTTON RIVETER source : 15 to 20 mcg/mL Pharmacy will continue to follow and will adjust dose/frequency as necessary. Thank you.
[2019-09-26] MEDS: FOLIC ACID 1 MG TAB PO SCH (11:33)
[2019-09-26] MEDS: cefTRIAXone SODIUM 2,000 MG in DEXTROSE 5% 50 ML IV SCH (11:33)
[2019-09-26] MEDS: METOPROLOL TARTRATE 25 MG TAB PO SCH ×2 (11:33→20:30)
[2019-09-26] MEDS: FAMOTIDINE 20 MG TAB OG SCH ×2 (11:34→20:30)
[2019-09-26] MEDS: DEXMEDETOMIDINE HCL 200 MCG in SODIUM CHLORIDE 0.9% 48 ML IV SCH ×3 (13:49→20:57)
--- NOTE | 2019-09-26 15:22 | Electrocardiogram Report ---
Test Reason : Blood Pressure : / mmHG Vent. Rate : 129 BPM Atrial Rate : 136 BPM P-R Int : 194 ms QRS Dur : 156 ms QT Int : 362 ms P-R-T Axes : 053 183 085 degrees QTc Int : 530 ms Atrial fibrillation with rapid ventricular response with premature ventricular or aberrantly conducte d complexes Right bundle branch block Lateral infarct (cited on or before 14-JUL-2019) Abnormal ECG When compared with ECG of 18-SEP-2019 16:14, Questionable change in initial forces of Anterior leads Confirmed by Mike Liu ([id number]) on 09/26/2019 3:22:17 PM Referred By: [facility] Confirmed By:Mike Liu
--- NOTE | 2019-09-26 16:04 | Electrocardiogram Report ---
Test Reason : Blood Pressure : / mmHG Vent. Rate : 115 BPM Atrial Rate : 000 BPM P-R Int : 000 ms QRS Dur : 158 ms QT Int : 338 ms P-R-T Axes : 000 211 113 degrees QTc Int : 467 ms Atrial fibrillation with rapid ventricular response Right bundle branch block Anterolateral infarct (cited on or before 14-JUL-2019) Abnormal ECG When compared with ECG of 25-SEP-2019 11:48, (unconfirmed) Questionable change in initial forces of Anterior leads Confirmed by Mike Liu ([id number]) on 09/26/2019 4:04:39 PM Referred By: [facility] Confirmed By:Mike Liu
--- NOTE | 2019-09-26 16:05 | Hospitalist Progress Note ---
Date of Service September 26, 2019 Assessment & Plan (1) Altered mental state: Possibly due to post-ictal confusion and hypoxemia. - Presently sedated on dexmedetomidine - Monitor mental status as propofol and benzos wean out of system (2) Acute respiratory failure with hypoxia and hypercarbia: Chronic hypoxia with baseline O2 2.5L/min. Chronic hypercapnia reflected in HCO3 29. - Presently on mechanical ventilation; settings per ICU (3) Atrial fibrillation with rapid ventricular response: HR presently in the 115 range, but with low blood pressure as well. - Continue beta-fatoumata per ICU team - Continue digoxin (4) Elevated INR: Unclear etiology as no known liver disease and now off warfarin. Possibly malnutrition. Plt improved from prior. - Will defer vitamin K to ICU team (5) COPD (chronic obstructive pulmonary disease): On no maintenance inhalers for this. - Duonebs PRN for wheezing (6) ESRD (end stage renal disease): No acute HD needs at present. - Consult nephrology. (7) S/P AVR (aortic valve replacement) and aortoplasty: Noted (8) Macrocytosis: Suspect secondary to EPO injections at dialysis. - Neurology asked for B12/folate (9) DVT prophylaxis: Heparin 5,000 units Q12h Admission and Anticipated Discharge Date Admission Date: September 25, 2019 Subjective Intubated and sedated. Review of Systems Review of Systems: Unobtainable due to cognitive status and Unobtainable due to endotracheal tube Physical Exam Constitutional: WD/WN, vitals as above + acute distress and + mechanically ventilated Eyes: EOM intact bilaterally; no conjunctival abnormality ENMT: external ear and nose normal, oropharynx normal Neck: trachea midline, no thyromegaly normal visual inspection Respiratory: normal respiratory effort, lungs clear to auscultation no respiratory distress Cardiovascular: Rate/Rhythm: regular rhythm and + tachycardic Heart Sounds: normal S1 and normal S2 Gastrointestinal (Abdomen): Inspection/Auscultation: abdomen normal to inspection; abdomen not distended Musculoskeletal: no cyanosis or clubbing, extremities motor strength 5/5 Skin: no rashes, warm and dry Neurologic: + does not move all extremities and + not awake Psychiatric: Orientation: + not alert Results & Data Results & Data ([facility]) Vital Signs (Past 12 Hours) Vital Signs Temp Pulse Resp BP Pulse Ox 09/26/19 13:05 129 H 18 95 09/26/19 11:32 123 H 09/26/19 10:36 119 H 96/71 L 95 09/26/19 10:22 131 H 98/73 L 94 09/26/19 10:06 137 H 121/93 95 09/26/19 09:58 122 H 16 97 09/26/19 09:52 135 H 117/82 97 09/26/19 09:36 130 H 131/93 98 09/26/19 09:21 128 H 118/91 97 09/26/19 09:06 37.3 C 129 H 116/84 97 09/26/19 08:36 131 H 126/85 96 09/26/19 08:21 129 H 119/94 97 09/26/19 08:06 133 H 131/94 97 09/26/19 07:51 121 H 125/86 97 09/26/19 07:36 134 H 127/91 97 09/26/19 07:21 118 H 126/98 97 09/26/19 07:19 122 H 20 97 09/26/19 07:06 113 H 123/95 97 09/26/19 06:44 112 H 09/26/19 06:40 113 H 97 09/26/19 06:36 110 H 121/79 97 09/26/19 06:35 105 H 97 09/26/19 06:30 106 H 98 09/26/19 06:25 110 H 98 09/26/19 06:22 111 H 98 09/26/19 06:21 106 H 119/75 98 09/26/19 06:20 117 H 119/73 98 09/26/19 06:15 100 H 20 97 09/26/19 06:10 113 H 98 09/26/19 06:05 100 H 22 99 09/26/19 06:00 37.1 C 110 H 16 99 PG Care Time/CCT Total # of Minutes Spent Total Time Spent with Patient: Total time spent is greater than 50% in coordination of care (as documented) at patient's floor/unit and/or counseling patient: Coding Level of Care Code 48890 Subseq Hosp Care Lvl 3 Diagnoses Altered mental state R41.82 Acute respiratory failure with hypoxia and hypercarbia J96.01; J96.02 Atrial fibrillation with rapid ventricular response I48.91 Elevated INR R79.1 COPD (chronic obstructive pulmonary disease) J44.9 ESRD (end stage renal disease) N18.6 S/P AVR (aortic valve replacement) and aortoplasty Z95.2 Macrocytosis D75.89 DVT prophylaxis Z29.9
[2019-09-26] MEDS ORDERED: ROCURONIUM BROMIDE 10 MG/ML 5 ML VIAL IV ONE (16:20)
[2019-09-26] MEDS ORDERED: SUCCINYLCHOLINE CHLORIDE 20 MG/ML 10 ML VIAL IV ONE (16:20)
[2019-09-26] MEDS ORDERED: MIDAZOLAM HCL 5 MG/ML VIAL IV ONE (16:20)
--- NOTE | 2019-09-26 17:01 | Consultation Report ---
DATE OF CONSULTATION: 09/26/2019 NEPHROLOGY CONSULTATION REASON FOR CONSULT: Dialysis patient admitted with altered mental status during dialysis. HISTORY OF PRESENT ILLNESS: The patient is a 54-year-old female with a very extensive medical list of problems including ESRD, on chronic hemodialysis [id number]. She was sent over to the hospital after she experienced acute mental status change. She has been having some mental status changes including hallucination, lethargy, poor body control as well as decreased oral intake. She has had previous episodes of altered mental status as well as seizure activity during dialysis in the past. The patient's mental status deteriorated even more after hospital admission and she is now intubated and is in ICU. Neurology has been consulted. According to neurology note, the working diagnosis at this time is possible seizure and she is getting anti-seizure medication. She had only 2 hours of dialysis yesterday; however, her blood work does not show any evidence of major electrolyte imbalance and she is not in any fluid overload. Her blood pressure is still somewhat low with fast heart rate. REVIEW OF SYSTEMS: Unable to obtain as the patient is intubated. PAST MEDICAL AND SURGICAL HISTORY: Extensively reviewed from the H and P and includes severe hypertension, history of COPD, ESRD - on hemodialysis, valvular heart disease, history of AFib, status post aortic valve replacement, history of seizure disorder. HOME MEDICATIONS LIST: Reviewed in detail and is as per the reconciliation list. ALLERGY LIST: Reviewed in detail. SOCIAL HISTORY: The patient is , currently lives in a retirement. Previously smoked, not recently. PHYSICAL EXAMINATION: GENERAL: Critically ill patient who is in intensive care unit. She is intubated and sedated, not following command. NEUROLOGICAL: Not possible to obtain neurological examination. CHEST: Bilaterally clear to auscultation. Decreased breath sounds at the bases. CARDIOVASCULAR: S1 and S2, tachycardic, soft systolic murmur heard. ABDOMEN: Soft, nontender. EXTREMITIES: Show no edema. LABORATORY TESTS: Reviewed in detail. ASSESSMENT AND PLAN: A 54-year-old female with multiple medical problems including end-stage renal disease, on chronic hemodialysis [id number], admitted with altered mental status likely related with seizure activity. End-stage renal disease: Tomorrow is her regular dialysis day and we will do her tomorrow. Now that we have ruled out intracranial bleed, she can have heparin as per her regular order. We will do her for 3 hours 30 minutes. Based on the physical examination and the laboratory tests, she does not have any major fluid or electrolyte emergency. Amount of ultrafiltration will be decided based on her blood pressure tomorrow. Thank you very much. SHAYY
[2019-09-26] MEDS ORDERED: DIGOXIN 0.125 MG TAB PO SCH (18:00)
[2019-09-26] MEDS ORDERED: MIDODRINE HCL 10 MG TAB PO ONE (21:25)
[2019-09-26] MEDS ORDERED: MENTHOL-ZINC OXIDE 360 APPLN/120 GM TUBE EXT PRN ×2 (21:33→23:08)
[2019-09-26] MEDS ORDERED: METOPROLOL TARTRATE 1 MG/ML VIAL IV STA (22:52)
[2019-09-27] MEDS ORDERED: STAT IV Infusion **Titration per Protocol STA ×4 (00:59→20:07)
[2019-09-27] MEDS ORDERED: dilTIAZem HCL 125 MG in DEXTROSE 5% 100 ML IV SCH (01:00)
[2019-09-27] MEDS: DEXMEDETOMIDINE HCL 200 MCG in SODIUM CHLORIDE 0.9% 48 ML IV SCH ×3 (02:05→07:45)
[2019-09-27 05:16] LABS: BUN Creatinine Ratio 8.2 (10-20); Calcium 8.8 mg/dl (8.5-10.1); Creatinine Clr Calc Pharmacy 9.6 ml/min; Est GFR (African American) 7.1; Est GFR (Non-African American) 6.1; Magnesium 2.2 mg/dl (1.8-2.4); Phosphorus 2.2 mg/dl (2.5-4.9); Potassium 4.1 mmol/L (3.5-5.1)
[2019-09-27 05:33] LABS: Basophils # (auto) 0.01 K/uL (0-0.2); Basophils % (auto) 0.1 %; Eosinophils # (auto) 0.03 K/uL (0-0.5); Eosinophils % (auto) 0.3 %; Hematocrit (blood only) 43.5 % (37-47); Immature Granulocytes # (auto) 0.01 K/uL (0.00-0.02); Immature Granulocytes % (auto) 0.1 %; Lymphocytes # (auto) 0.78 K/uL (1.2-3.4); Lymphocytes % (auto) 8.6 %; Mean Corpuscular Hgb Conc 29.9 g/dL (32-36); Mean Corpuscular Volume 100.5 fL (80-100); Monocytes # (auto) 0.46 K/uL (0.11-0.59); Monocytes % (auto) 5.1 %; Neutrophils # (auto) 7.77 K/uL (1.4-6.5); Neutrophils % (auto) 85.8 %; Platelet Count 60 K/uL (130-400); Platelet Estimate Decreased (Normal); Polychromasia 1+; RDW Coefficient of Variation 19.4 % (11.5-14.5); RDW Standard Deviation 70.2 fL (36.4-46.3); Red Blood Count 4.33 M/uL (4.2-5.4); White Blood Count 9.06 K/uL (4.8-10.8)
[2019-09-27] MEDS ORDERED: SODIUM CHLORIDE 0.9% 1000ML 1,000 ML IV PRN (07:00)
[2019-09-27] MEDS ORDERED: HEPARIN SOD (PORCINE) 1000 UNIT/ML 10 ML VIAL IV ONE (07:00)
[2019-09-27] MEDS: cefTRIAXone SODIUM 2,000 MG in DEXTROSE 5% 50 ML IV SCH (08:02)
[2019-09-27] MEDS: METOPROLOL TARTRATE 25 MG TAB PO SCH ×3 (08:02→21:14)
[2019-09-27] MEDS: ASPIRIN 81 MG CHEW NG SCH (08:02)
[2019-09-27] MEDS: FAMOTIDINE 20 MG TAB OG SCH (08:02)
[2019-09-27] MEDS: FOLIC ACID 1 MG TAB PO SCH (08:03)
--- NOTE | 2019-09-27 08:47 | XRay Report ---
XR chest 1V portable CLINICAL HISTORY: eval for pna dyspnea COMPARISON STUDY: 09/26/2019 FINDINGS: Stable cardiomegaly. Nasogastric tube within the gastric fundus. Endotracheal tube is 3 cm above the travis. Mild increase in pulmonary vasculature. Slight increase in volume of right and to a lesser extent lef t pleural effusion. IMPRESSION: Mildly progressive components of congestive heart failure. Tube and line positions as no arabella. ACT 112: Negative or not required by law. The above report was generated using voice recognition software. It may contain grammatical, syntax or spelling errors. Electronically signed by: Castro Lancaster M.D. 09/27/2019 8:46 AM
--- NOTE | 2019-09-27 09:15 | Critical Care Progress Note ---
Date of Service September 27, 2019 Assessment & Plan (1) Status post admission to intensive care unit: 54-year-old female with a past medical history of end-stage renal disease on hemodialysis, poor medical compliance, aortic valve replacement, COPD and atrial fibrillation who resides at her side group home was admitted due to altered mental status and ultimately intubated on the floor due to lethargy and inability to protect her airway. EEG yesterday was nonspecific with no obvious epileptiform discharges. Neurology is following. Patient received a dose of Keppra yesterday and they will determine what the next appropriate doses or if there should be a medication change. We will repeat an EEG today given her underlying altered mental status. TSH is normal. She is being treated for possible infection with vancomycin and ceftriaxone. We are empirically treating a pneumonia. Sputum culture pending. And altering medications. We are weaning off the diltiazem as her atrial fibrillation is improving. Increase her metoprolol to 12.5 mg 3 times daily. She has had some episodes of hypotension and is chronically on midrodrine. I have increased her to 5 mg 3 times a day. CTA of her head on 09/25 demonstrated severe calcified plaques in the right vertebral artery and arthrosclerotic vascular disease. Patient may need an MRI in the near future. If no improvement, may also need a lumbar puncture. Will defer to neurology for the time being. Her platelets did drop and they are currently 60,000. Hemoglobin stable. She has anemia of chronic disease. We will check a heparin- induced thrombocytopenia panel. Check LFTs and ammonia today. Blood cultures thus far negative to date. Repeat chest x-ray today demonstrating worsening congestive findings. Patient to undergo hemodialysis today hopefully to remove some fluid and improved her chest x-ray. Notably echo in July demonstrated moderately dilated right ventricle with reduced systolic function and severe tricuspid regurgitation. She likely has underlying secondary pulmonary hypertension. EF was normal. She had concentric left ventricular hypertrophy. (2) Acute encephalopathy: (3) Acute and chronic respiratory failure: (4) Acute respiratory failure with hypoxia and hypercarbia: (5) CHF (congestive heart failure): (6) Atrial fibrillation with rapid ventricular response: (7) Multifocal pneumonia: (8) ESRD (end stage renal disease) on dialysis: (9) Secondary pulmonary hypertension: Admission and Anticipated Discharge Date Admission Date: September 25, 2019 Subjective Patient is off all sedation this morning. She continues on a low-dose of diltiazem drip for atrial fibrillation with rapid ventricular response. She is not following commands. She does open her eyes spontaneously at times. She continues to withdraw to pain. Heart rate is 75. Minimal vent settings with an FiO2 of 30% and a PEEP of 5. Review of Systems Review of Systems: Unobtainable due to endotracheal tube Physical Exam Constitutional: Patient is intubated and encephalopathic. Not following commands. Does not appear to be in any obvious distress. Eyes: Roving eye movements. ENMT: external ear and nose normal, oropharynx normal Neck: trachea midline, no thyromegaly Respiratory: Coarse breath sounds bilaterally and diminished at the bases. Cardiovascular: Irregularly irregular. 1+ pitting edema in the lower extremities. Gastrointestinal (Abdomen): Inspection/Auscultation: abdomen not distended OG tube is in place. Bowel sounds active. Musculoskeletal: Toes and legs appear very dry with evidence of venous stasis. Onychomycosis noted. Skin: no rashes, warm and dry Neurologic: Unable to fully assess given her mental status. Does not appear focal. Does appear mildly rigid. Not following commands. Opening eyes spontaneously. Intermittently moves her extremities. Psychiatric: Unable to fully assess given her mental status. Results & Data Results & Data ([facility]) Vital Signs (Past 12 Hours) Vital Signs Temp Pulse Resp BP Pulse Ox 09/27/19 08:22 97.9 F 77 98/54 L 95 09/27/19 07:52 70 95/55 L 96 09/27/19 07:23 76 17 95 09/27/19 07:22 76 91/54 L 95 09/27/19 06:52 74 100/56 L 96 09/27/19 05:34 83 20 96 09/27/19 05:22 77 102/63 93 09/27/19 05:00 73 97 09/27/19 04:52 73 103/59 L 96 09/27/19 04:22 99.0 F 77 105/59 L 96 09/27/19 04:00 79 96 09/27/19 03:52 81 97/57 L 96 09/27/19 03:22 83 97/56 L 96 09/27/19 03:00 80 97 09/27/19 02:52 92 H 102/55 L 96 09/27/19 02:22 92 H 101/61 96 09/27/19 01:52 87 100/60 96 09/27/19 01:30 103 H 18 96 09/27/19 01:22 125 H 80/56 L 95 09/27/19 00:52 138 H 88/63 L 96 09/27/19 00:22 118 H 86/62 L 96 09/26/19 23:52 99.0 F 137 H 89/68 L 92 09/26/19 23:22 137 H 101/64 96 09/26/19 23:12 136 H 16 96 09/26/19 22:59 137 H 96/69 L 09/26/19 22:52 136 H 96/69 L 96 09/26/19 22:22 81 111/67 96 09/26/19 22:00 85 97 09/26/19 21:52 82 102/66 97 09/26/19 21:23 129 H 96 09/26/19 21:22 143 H 81/55 L 96 I personally reviewed labs, chest imaging and previous notes. Coding Level of Care Code Critical Care 1st 30-74 mins Diagnoses Status post admission to intensive care unit Acute encephalopathy G93.40 Acute and chronic respiratory failure J96.20 Acute respiratory failure with hypoxia and hypercarbia J96.01; J96.02 CHF (congestive heart failure) I50.9 Heart failure chronicity: acute Heart failure type: unspecified Atrial fibrillation with rapid ventricular response I48.91 Multifocal pneumonia J18.9 ESRD (end stage renal disease) on dialysis N18.6; Z99.2 Secondary pulmonary hypertension Time Spent (min) 51 (1) CHF (congestive heart failure) Heart failure chronicity: acute Heart failure type: unspecified Qualified Code(s): I50.9 - Heart failure, unspecified
[2019-09-27 09:43] LABS: Albumin Level 2.4 gm/dl (3.4-5.0); Bilirubin Direct 0.5 mg/dl (0-0.2); Bilirubin,Total 0.9 mg/dl (0.2-1); Total Protein 5.7 gm/dl (6.4-8.2)
[2019-09-27] MEDS ORDERED: CEFEPIME CONSULT ACTIVE PRN (10:19)
[2019-09-27] MEDS ORDERED: [UNRECOGNIZED DRUG - REMARK] PRN (10:22)
--- NOTE | 2019-09-27 10:53 | Neurology Progress Note ---
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 She had been fairly stable, although would have times of altered mental status over the ensuing months. This was multifactorial and largely due to hypoxia from COPD and complications from her renal disease. She had an episode of shaking during dialysis in July of this year, and 2 witnessed generalized tonic-clonic seizures earlier in the morning September 25. The etiology of the seizures is likely multifactorial and hypoxia certainly could trigger generalized seizures. In addition her severe right hemispheric encephalomalacia from previous hemorrhage would put her at great risk for seizure activity (particularly with compounding conditions such as hypoxia, infection, medication, endocrine or metabolic imbalances including renal failure). I saw no evidence of seizure activity on examination or by EEG on 09/25. I did see occasional myoclonic jerks of the limbs, which are nonspecific and are likely related to her hypoxic/metabolic state. She has atrial fibrillation with rapid ventricular response. There is no evidence for focal abnormalities on exam or by EEG. Nevertheless, a small stroke cannot entirely be excluded. Interestingly, today, she is improving neurologically with her exam including starting to follow one-step commands and moving her limbs better. She is int ubated so obviously she is not speaking. Dialysis is likely getting rid of any leftover Ativan which probably altered her mental status yesterday. Recommendations: 1. After discussion with Dr. Hicks, we will hold off on an anticonvulsant for now. 2. If myoclonic jerks continue to increase or she has increased seizure activity I would initiate valproic acid 250 milligrams every 6 hours (after loading dose of 500 milligrams). Again, I would check with nephrology to see if dosing modification as needed). 3. Continue to keep off propofol and other sedating medication. 4. The patient could be anticoagulated because of atrial fibrillation to prevent stroke. I would not load her but simply pick a dose and initiate. I would leave the choice of anticoagulant to Cardiology/Nephrology. For now, she can have DVT prophylaxis anticoagulation. 5. Ideally, an MRI of the brain would be useful but we cannot get this until she is extubated. 6. If there is any concern for additional seizure activity a repeat EEG could be obtained. 7. Consider TSH, folate, and B12 (note elevated MCV). I spent a total of 35 minutes on this case including review of records, review of CT films, direct evaluation the patient at bedside, and discussion of the case with the patient at bedside, RN at bedside, and doctors Fabiola and Addison, including differential diagnosis and treatment options. Admission and Anticipated Discharge Date Admission Date: September 25, 2019 Subjective Is getting dialysis today. As she has been on dialysis she is starting to become a little more active with spontaneous movement. Blood pressure is 101/59. Nursing reports no new events and no twitching or jerking has been noted in the limbs. She has not received any anticonvulsant since her initial levetiracetam loading dose. Results & Data ([facility]) Vital Signs (Past 12 Hours) Vital Signs Temp Pulse Pulse Resp BP Pulse Ox 09/27/19 10:40 102 H 91/52 L 09/27/19 10:20 70 101/59 L 09/27/19 10:00 77 107/60 09/27/19 09:52 36.5 C 75 75 107/60 09/27/19 09:49 70 19 95 09/27/19 08:22 36.6 C 77 98/54 L 95 09/27/19 07:52 70 95/55 L 96 09/27/19 07:23 76 17 95 09/27/19 07:22 76 91/54 L 95 09/27/19 06:52 74 100/56 L 96 09/27/19 05:34 83 20 96 09/27/19 05:22 77 102/63 93 09/27/19 05:00 73 97 09/27/19 04:52 73 103/59 L 96 09/27/19 04:22 37.2 C 77 105/59 L 96 09/27/19 04:00 79 96 09/27/19 03:52 81 97/57 L 96 09/27/19 03:22 83 97/56 L 96 09/27/19 03:00 80 97 09/27/19 02:52 92 H 102/55 L 96 09/27/19 02:22 92 H 101/61 96 09/27/19 01:52 87 100/60 96 09/27/19 01:30 103 H 18 96 09/27/19 01:22 125 H 80/56 L 95 09/27/19 00:52 138 H 88/63 L 96 09/27/19 00:22 118 H 86/62 L 96 09/26/19 23:52 37.2 C 137 H 89/68 L 92 09/26/19 23:22 137 H 101/64 96 09/26/19 23:12 136 H 16 96 09/26/19 22:59 137 H 96/69 L 09/26/19 22:52 136 H 96/69 L 96 Exam (Neuro) Physical Exam: Patient will half open her eyes to voice but not fix and quickly closes her eyes again. She will resist eye opening. Pupils are 4-5 millimeters and quite reactive to light. She can spontaneously move her limbs and follows one-step commands wiggling her toes bilaterally right greater than left side. PG Care Time/CCT Total # of Minutes Spent Total Time Spent with Patient: Total time spent is greater than 50% in coordination of care (as documented) at patient's floor/unit and/or counseling patient: Coding Level of Care Code 85430 Subseq Hosp Care Lvl 3 Diagnoses Seizure R56.9 Acute encephalopathy G93.40 Encephalomalacia G93.89 Atrial fibrillation with rapid ventricular response I48.91 Time Spent (min) 35
[2019-09-27] MEDS: MIDODRINE HCL 2.5 MG TAB PO SCH ×2 (11:10→15:57)
[2019-09-27] MEDS: ESMOLOL / NSS 2,500 MG/250 ML BAG IV SCH ×6 (11:10→23:09)
[2019-09-27 11:18] LABS: Hepatitis B Surface Ab Quant < 3.10 mIU/mL (>or=10mIU/mL Immune); Hepatitis B Surface Antibody Non-Immune
[2019-09-27 11:29] LABS: Hepatitis B Surface Antigen Neg (Neg)
--- NOTE | 2019-09-27 12:03 | Electroencephalogram ---
EEG Procedure Note Date of Service September 27, 2019 Start / End Times Start Time: 1126 End Time: [address] Hicks History 54-year-old with history of 2 seizures September 25 with severe encephalopathy Home Medication List Home Medications Medication Instructions Recorded Confirmed Type Combivent Respimat 2 puff INHALATION Q4 PRN 12/02/18 09/25/19 History acetaminophen 650 mg PO Q6H PRN MDD 3g/24hr 12/02/18 09/25/19 History acetaminophen 650 mg PO Q6H PRN MDD x1 dose 12/02/18 09/25/19 History allopurinol 100 mg PO DAILY 12/02/18 09/25/19 History calcium acetate(phosphat bind) 1,334 mg PO TIDM 12/02/18 09/25/19 History digoxin 125 mcg PO 2XWK 12/02/18 09/25/19 History metoprolol succinate 12.5 mg PO BID 12/02/18 09/25/19 History ondansetron HCl [Zofran] 4 mg PO Q6H PRN 12/02/18 09/25/19 History ropinirole 0.5 mg PO HS 12/02/18 09/25/19 History Aspercreme Heat 1 applic TOPICAL Q8H PRN 05/01/19 09/25/19 History aspirin 81 mg PO DAILY 05/01/19 09/25/19 History bisacodyl [Dulcolax (bisacodyl)] 10 mg MN DAILY PRN 05/01/19 09/25/19 History famotidine 20 mg PO BID 05/01/19 09/25/19 History folic acid 1 mg PO DAILY 05/01/19 09/25/19 History midodrine 10 mg PO DAILY 05/01/19 09/25/19 History oxycodone-acetaminophen 5 mg-325 1 tab PO Q6H PRN 06/08/19 09/25/19 History mg tablet Renal Vitamin 1 tab PO DAILY 07/14/19 09/25/19 History omeprazole 40 mg PO DAILY 07/14/19 09/25/19 History sertraline 50 mg PO DAILY 07/14/19 09/25/19 History trazodone 150 mg PO HS 07/14/19 09/25/19 History lorazepam 0.5 mg PO Q8 PRN 08/01/19 09/25/19 History sertraline 25 mg PO DAILY 08/01/19 09/25/19 History Inpatient Medication List Aspirin (Aspirin Chew) 81 mg NG DAILY [facility] Stop: 10/27/19 08:59 Last Admin: 09/27/19 08:02 Dose: 81 mg Documented by: [id number] Calamine/Phenol (Calmoseptine) 1 appln EXT Q12H PRN PRN Reason: Rash Stop: 10/26/19 23:14 Last Admin: 09/26/19 23:43 Dose: 1 appln Documented by: [id number] Calcium Acetate (Phoslo) 1,334 mg PO TIDM [facility] Stop: 10/25/19 16:59 Last Admin: 09/26/19 09:56 Dose: Not Given Documented by: [id number] Admin: 09/25/19 17:21 Dose: Not Given Documented by: [id number] Folic Acid (Folvite) 1 mg PO DAILY [facility] Stop: 10/26/19 08:59 Last Admin: 09/27/19 08:03 Dose: 1 mg Documented by: [id number] Admin: 09/26/19 11:33 Dose: 1 mg Documented by: [id number] Heparin Sodium (Porcine) (Heparin Sodium (Porcine)) 5,000 units SQ Q12 [facility] Stop: 10/26/19 08:59 Last Admin: 09/26/19 20:31 Dose: 5,000 units Documented by: [id number] Cosigned by: [id number] Admin: 09/26/19 10:05 Dose: 5,000 units Documented by: [id number] Cosigned by: [id number] Dexmedetomidine HCl 200 mcg/ (Sodium Chloride) 50 mls @ 0 mls/hr IV .Q0M [facility]; Protocol Stop: 09/30/19 12:59 Last Admin: 09/27/19 07:45 Dose: Not Given Documented by: [id number] Admin: 09/27/19 07:42 Dose: Not Given Documented by: [id number] Titration: 09/27/19 05:25 Dose: 0 mcg/kg/hr, 0 mls/hr Documented by: [id number] Admin: 09/27/19 02:05 Dose: 0.4 mcg/kg/hr, 8.5 mls/hr Documented by: [id number] Cosigned by: [id number] Titration: 09/27/19 01:06 Dose: 0.4 mcg/kg/hr, 8.5 mls/hr Documented by: [id number] Cosigned by: [id number] Titration: 09/27/19 01:00 Dose: 0.4 mcg/kg/hr, 8.5 mls/hr Documented by: [id number] Titration: 09/26/19 23:55 Dose: 0.5 mcg/kg/hr, 10.6 mls/hr Documented by: [id number] Admin: 09/26/19 20:57 Dose: 0.6 mcg/kg/hr, 12.7 mls/hr Documented by: [id number] Cosigned by: [id number] Titration: 09/26/19 20:57 Dose: 0.6 mcg/kg/hr, 12.7 mls/hr Documented by: [id number] Cosigned by: [id number] Titration: 09/26/19 18:52 Dose: 0.6 mcg/kg/hr, 12.7 mls/hr Documented by: [id number] Cosigned by: [id number] Admin: 09/26/19 17:27 Dose: 0.6 mcg/kg/hr, 12.7 mls/hr Documented by: [id number] Cosigned by: [id number] Titration: 09/26/19 17:27 Dose: 0.6 mcg/kg/hr, 12.7 mls/hr Documented by: [id number] Cosigned by: [id number] Titration: 09/26/19 15:52 Dose: 0.6 mcg/kg/hr, 12.7 mls/hr Documented by: [id number] Titration: 09/26/19 14:29 Dose: 0.4 mcg/kg/hr, 8.5 mls/hr Documented by: [id number] Admin: 09/26/19 13:49 Dose: 0.2 mcg/kg/hr, 4.2 mls/hr Documented by: [id number] Cosigned by: [id number] Esmolol HCl (Brevibloc) 2,500 mg in 250 mls @ 25.26 mls/hr IV .Q9H54M [facility]; Pro tocol Stop: 10/27/19 10:59 Last Admin: 09/27/19 11:10 Dose: 50 mcg/kg/min, 25.3 mls/hr Documented by: [id number] Cosigned by: [id number] Ioversol (Optiray 320 125ml) 125 ml IV ONCE PRN PRN Reason: Interaction Checking Stop: 09/30/19 05:54 Last Admin: 09/26/19 05:55 Dose: 118 ml Documented by: [id number] Midodrine (Proamatine) 5 mg PO TID@0800,1200,1700 [facility] Stop: 10/27/19 11:59 Last Admin: 09/27/19 11:10 Dose: 5 mg Documented by: [id number] Vitamin B Complex/Folic Acid (Nephrocaps) 1 cap PO DAILY [facility] Stop: 10/26/19 08:59 Last Admin: 09/26/19 09:58 Dose: Not Given Documented by: [id number] Discontinued Medications Allopurinol (Zyloprim) 100 mg PO DAILY [facility] Stop: 10/26/19 08:59 Last Admin: 09/26/19 10:30 Dose: Not Given Documented by: [id number] Allopurinol (Zyloprim) 100 mg OG DAILY [facility] Stop: 10/26/19 09:59 Last Admin: 09/26/19 11:34 Dose: 100 mg Documented by: [id number] Aspirin (Ecotrin Ectab) 81 mg PO DAILY [facility] Stop: 10/26/19 08:59 Last Admin: 09/26/19 09:57 Dose: Not Given Documented by: [id number] Digoxin (Lanoxin) 0.25 mg PO NOW ONE Stop: 09/26/19 10:31 Last Admin: 09/26/19 11:32 Dose: 0.25 mg Documented by: [id number] Digoxin (Lanoxin) 0.0625 mg PO TODAY@1800 [facility] Stop: 09/26/19 18:01 Last Admin: 09/26/19 17:25 Dose: 0.0625 mg Documented by: [id number] Diltiazem HCl (Cardizem) 10 mg IV NOW STA Stop: 09/25/19 13:16 Last Admin: 09/25/19 13:30 Dose: 10 mg Documented by: [id number] Cosigned by: [id number] Famotidine (Pepcid) 20 mg PO BID [facility] Stop: 10/25/19 20:59 Last Admin: 09/26/19 10:30 Dose: Not Given Documented by: [id number] Admin: 09/25/19 20:01 Dose: Not Given Documented by: [id number] Famotidine (Pepcid) 20 mg OG BID [facility] Stop: 10/26/19 09:59 Last Admin: 09/27/19 08:02 Dose: 20 mg Documented by: [id number] Admin: 09/26/19 20:30 Dose: 20 mg Documented by: [id number] Admin: 09/26/19 11:34 Dose: 20 mg Documented by: [id number] Furosemide (Lasix) 40 mg IV NOW STA Stop: 09/25/19 13:22 Last Admin: 09/25/19 13:30 Dose: 40 mg Documented by: [id number] Diltiazem HCl 125 mg/ Dextrose 125 mls @ 0 mls/hr IV .Q0M [facility]; Protocol Stop: 10/25/19 13:14 Last Titration: 09/26/19 10:31 Dose: 0 mg/hr, 0 mls/hr Documented by: [id number] Cosigned by: [id number] Titration: 09/26/19 05:24 Dose: 0 mg/hr, 0 mls/hr Documented by: [id number] Cosigned by: [id number] Admin: 09/25/19 23:35 Dose: 10 mg/hr, 10 mls/hr Documented by: [id number] Cosigned by: [id number] Titration: 09/25/19 23:35 Dose: 10 mg/hr, 10 mls/hr Documented by: [id number] Cosigned by: [id number] Titration: 09/25/19 15:08 Dose: 10 mg/hr, 10 mls/hr Documented by: [id number] Cosigned by: [id number] Titration: 09/25/19 14:52 Dose: 5 mg/hr, 5 mls/hr Documented by: [id number] Cosigned by: [id number] Titration: 09/25/19 13:55 Dose: 10 mg/hr, 10 mls/hr Documented by: [id number] Cosigned by: [id number] Admin: 09/25/19 13:30 Dose: 5 mg/hr, 5 mls/hr Documented by: [id number] Cosigned by: [id number] Lorazepam (Ativan) 0.5 mg in 1 mls @ 1 mls/min IV NOW STA Stop: 09/25/19 17:27 Last Admin: 09/26/19 06:26 Dose: Not Given Documented by: [id number] Lactated Ringer's (Lr) 250 mls @ 999 mls/hr IV .Q16M ONE Stop: 09/25/19 17:43 Last Infusion: 09/25/19 18:56 Dose: 0 mls/hr Documented by: [id number] Admin: 09/25/19 18:07 Dose: 999 mls/hr Documented by: [id number] Lactated Ringer's (Lr) 250 mls @ 999 mls/hr IV .Q16M ONE Stop: 09/25/19 20:11 Last Infusion: 09/25/19 20:21 Dose: 0 mls/hr Documented by: [id number] Admin: 09/25/19 20:00 Dose: 999 mls/hr Documented by: [id number] Levetiracetam 1,000 mg/ Sodium (Chloride) 110 mls @ 440 mls/hr IV NOW STA Stop: 09/26/19 04:39 Last Infusion: 09/26/19 05:25 Dose: 0 mls/hr Documented by: [id number] Admin: 09/26/19 04:53 Dose: 440 mls/hr Documented by: [id number] Albumin Human (Albumin 25%) 50 mls @ 50 mls/hr IV ONE ONE Stop: 09/26/19 05:33 Last Infusion: 09/26/19 05:24 Dose: 0 mls/hr Documented by: [id number] Admin: 09/26/19 05:23 Dose: 50 mls/hr Documented by: [id number] Norepinephrine Bitartrate 8 mg (/ Dextrose) 508 mls @ 16.116 mls/hr IV .Q24H [facility]; Protocol Stop: 10/26/19 05:14 Last Titration: 09/26/19 10:15 Dose: 0 mcg/kg/min, 0 mls/hr Documented by: [id number] Titration: 09/26/19 07:19 Dose: 0.1 mcg/kg/min, 32.2 mls/hr Documented by: [id number] Cosigned by: [id number] Admin: 09/26/19 06:26 Dose: 0.1 mcg/kg/min, 32.2 mls/hr Documented by: [id number] Cosigned by: [id number] Propofol (Diprivan) 1,000 mg in 100 mls @ 0 mls/hr IV .Q0M [facility]; Protocol Stop: 09/29/19 06:18 Last Titration: 09/26/19 14:01 Dose: 0 mcg/kg/min, 0 mls/hr Documented by: [id number] Titration: 09/26/19 08:30 Dose: 0 mcg/kg/min, 0 mls/hr Documented by: [id number] Titration: 09/26/19 07:19 Dose: 15 mcg/kg/min, 7.6 mls/hr Documented by: [id number] Cosigned by: [id number] Admin: 09/26/19 06:33 Dose: 15 mcg/kg/min, 7.6 mls/hr Documented by: [id number] Cosigned by: [id number] Pantoprazole Sodium 40 mg/ (Syringe) 10 mls @ 5 mls/min IV BID [facility] Stop: 10/26/19 08:59 Last Admin: 09/26/19 10:29 Dose: Not Given Documented by: [id number] Ceftriaxone Sodium 2,000 mg/ (Dextrose) 70 mls @ 100 mls/hr IV DAILY [facility]; Protocol Stop: 09/28/19 08:59 Last Infusion: 09/27/19 08:50 Dose: 0 mls/hr Documented by: [id number] Admin: 09/27/19 08:02 Dose: 100 mls/hr Documented by: [id number] Infusion: 09/26/19 12:15 Dose: 0 mls/hr Documented by: [id number] Admin: 09/26/19 11:33 Dose: 100 mls/hr Documented by: [id number] Vancomycin HCl 1,750 mg/ (Sodium Chloride) 535 mls @ 200 mls/hr IV NOW ONE Stop: 09/26/19 10:10 Last Infusion: 09/26/19 12:54 Dose: 0 mls/hr Documented by: [id number] Admin: 09/26/19 10:04 Dose: 200 mls/hr Documented by: [id number] Phenylephrine HCl 20 mg/ (Dextrose) 502 mls @ 0 mls/hr IV .Q0M [facility]; Protocol Stop: 10/26/19 09:44 Last Titration: 09/27/19 07:46 Dose: 0 mcg/kg/min, 0 mls/hr Documented by: [id number] Admin: 09/26/19 23:41 Dose: Not Given Documented by: [id number] Titration: 09/26/19 17:58 Dose: 0 mcg/kg/min, 0 mls/hr Documented by: [id number] Titration: 09/26/19 17:11 Dose: 0.3 mcg/kg/min, 38.2 mls/hr Documented by: [id number] Titration: 09/26/19 14:29 Dose: 0.4 mcg/kg/min, 51 mls/hr Documented by: [id number] Admin: 09/26/19 10:04 Dose: 0.5 mcg/kg/min, 63.7 mls/hr Documented by: [id number] Cosigned by: [id number] Diltiazem HCl 125 mg/ Dextrose 125 mls @ 5 mls/hr IV .Q24H [facility]; Protocol Stop: 10/27/19 00:59 Last Titration: 09/27/19 10:53 Dose: 0 mg/hr, 0 mls/hr Documented by: [id number] Cosigned by: [id number] Titration: 09/27/19 06:54 Dose: 5 mg/hr, 5 mls/hr Documented by: [id number] Cosigned by: [id number] Admin: 09/27/19 01:10 Dose: 5 mg/hr, 5 mls/hr Documented by: [id number] Cosigned by: [id number] Lorazepam (Ativan) Confirm Administered Dose 2 mg .ROUTE .STK-MED ONE Stop: 09/25/19 17:34 Last Admin: 09/25/19 18:56 Dose: Not Given Documented by: [id number] Lorazepam (Ativan) Confirm Administered Dose 2 mg .ROUTE .STK-MED ONE Stop: 09/26/19 04:24 Last Admin: 09/26/19 04:43 Dose: 2 mg Documented by: [id number] Lorazepam (Ativan) Confirm Administered Dose 2 mg .ROUTE .STK-MED ONE Stop: 09/26/19 04:31 Last Admin: 09/26/19 04:55 Dose: 2 mg Documented by: [id number] Metoprolol Tartrate (Lopressor) 5 mg IV Q4 [facility] Stop: 10/25/19 19:59 Last Admin: 09/26/19 10:30 Dose: Not Given Documented by: [id number] Admin: 09/26/19 03:58 Dose: 5 mg Documented by: [id number] Admin: 09/25/19 23:05 Dose: 5 mg Documented by: [id number] Admin: 09/25/19 20:20 Dose: 5 mg Documented by: [id number] Metoprolol Tartrate (Lopressor) 12.5 mg PO BID [facility] Stop: 10/26/19 09:44 Last Admin: 09/27/19 08:02 Dose: 12.5 mg Documented by: [id number] Admin: 09/26/19 20:30 Dose: 12.5 mg Documented by: [id number] Admin: 09/26/19 11:33 Dose: 12.5 mg Documented by: [id number] Metoprolol Tartrate (Lopressor) 5 mg IV NOW STA Stop: 09/26/19 22:53 Last Admin: 09/26/19 22:59 Dose: 5 mg Documented by: [id number] Midodrine (Proamatine) 10 mg PO ONCE ONE Stop: 09/26/19 21:26 Last Admin: 09/26/19 21:39 Dose: 10 mg Documented by: [id number] Miscellaneous () 1 ea N/A NOW STA Stop: 09/25/19 13:16 Last Admin: 09/25/19 13:30 Dose: Not Given Documented by: [id number] Criseldacellaneous () Confirm Administered Dose 1 ea .ROUTE .STK-MED ONE Stop: 09/26/19 04:41 Last Admin: 09/26/19 06:25 Dose: 1 ea Documented by: [id number] Criseldacellaneous (Order Awaiting Action) 1 ea N/A QS [facility] Stop: 10/26/19 22:14 Last Admin: 09/27/19 08:03 Dose: Not Given Documented by: [id number] Admin: 09/27/19 00:34 Dose: Not Given Documented by: [id number] Admin: 09/26/19 23:43 Dose: Not Given Documented by: [id number] Pneumococcal Polyvalent Vaccine (Pneumovax-23) 25 mcg IM .ONCE ONE Stop: 09/25/19 19:16 Last Admin: 09/26/19 07:32 Dose: Not Given Documented by: [id number] Description This is a 21 electrode EEG with a single channel dedicated to limited EKG. The electrodes were placed in accordance with the International 10-20 system. Interpretation The predominant background activity consists of an irregular 6 hertz activity, of up to 40 mV in amplitude,seen from time to time over the posterior head regions spreading some anteriorly. There was no change in the background activity to alerting procedures. Photic stimulation and hyperventilation were not performed during this bedside ICU EEG. A considerable amount of muscle and movement artifact activity contaminated the recording , hindering interpretation from time to time throughout the entire recording. The patient continuously was moving and rocking her head not able to follow direction from the prosthetics lab technician. Throughout this recording I could not detect any focal abnormalities or potentially epileptogenic discharges. There was some low amplitude 4-6 hertz activity admixed with the background activity is diffuse, nonspecific, nonfocal matter. In summary, this EEG was technically difficult to interpret from time to time due to the movement artifact, however, there was a moderate generalized slowing. No focal abnormalities or potentially epileptogenic discharges were seen. Clinical Correlation The abscence of potentially epileptogenic activity does not exclude a seizure disorder, since interictally, EEGs can be normal. The moderate generalized slowing is consistent with an encephalopathy which could be due to a wide variety of causes. Clinical correlation is required. [facility] EEG Procedure Codes Indication for Procedure (1) Seizure: (2) Acute encephalopathy: Neurology Neurology: 49024 EEG include record awake & drowsy
--- NOTE | 2019-09-27 12:06 | Pharmacy Report ---
Pharmacy Abx Dose Short Note - Date of Service September 27, 2019 - Assessment & Plan Assessment * 54 year old F receiving VANCOMYCIN + CEFEPIME + AMPICILLIN for possible meningitis (in the setting of shunt placement) / pneumonia * Patient admitted to ICU overnight for possible seizure activity, leading to benzo + levetiracetam administration and intubation * Patient dose have h/o intraparenchymal/intraventricular hemorrhage w/ crani and shunt placement * Currently afebrile, leukocytosis now resolved, intermittently dependent on vasopressors (phenylephrine), + lactic acidosis * + MRSA nasal swab * CXR read as: "Mildly progressive components of congestive heart failure" * Patient does have h/o ESRD on HD --. Patient is being dialyzed today Plan Vancomycin * Random vancomycin level = 21.6 * Pt is being dialyzed today, will give 500mg IV x 1 after HD complete * Will check random level w/ AM labs tomorrow * Will redose when level b/w 15-20mcg/mL or anticipated to be so following HD session * Goal trough level for unknown source of infxn, possible [employer] source : 15 to 20 mcg/mL Cefepime * 2gm usual loading dose, followed by max dose of 1gm Q 24 hrs for intermittent HD Ampicillin * 2gm IV Q 12 hrs = max dose for intermittent HD Pharmacy will continue to follow and will adjust dose/frequency as necessary. Thank you.
[2019-09-27] MEDS: HEPARIN SOD (PORCINE) 1000 UNIT/ML 10 ML VIAL IV SCH (12:35)
[2019-09-27] MEDS ORDERED: AMIODARONE / D5W 150 MG/100 ML BAG IV STA (12:45)
[2019-09-27] MEDS ORDERED: 0.2 MICRON FILTER SET 1 EA IV ONE (12:45)
[2019-09-27] MEDS ORDERED: AMIODARONE IV BOLUS & DRIP IV STA (12:45)
[2019-09-27] MEDS: AMIODARONE 450 MG in D5W 250ML IN *POLYOLEFIN BAG* 241 ML IV SCH ×2 (13:44→20:52)
[2019-09-27 13:49] LABS: BUN Creatinine Ratio 6.2 (10-20); Calcium 8.8 mg/dl (8.5-10.1); Est GFR (African American) 14.2; Est GFR (Non-African American) 12.3; Potassium 3.7 mmol/L (3.5-5.1)
[2019-09-27] MEDS ORDERED: CEFEPIME 2,000 MG in SYRINGE 7.5 ML IV ONE (14:00)
[2019-09-27] MEDS ORDERED: VANCOMYCIN HCL 500 MG in 0.9 % SODIUM CHLORIDE 100 ML IV ONE (14:00)
[2019-09-27 14:01] LABS: Troponin I 0.131 ng/ml (0-0.045)
--- NOTE | 2019-09-27 14:37 | Progress Notes ---
DATE: 09/27/2019 NEPHROLOGY PROGRESS NOTE SUBJECTIVE: The patient continues to remain in ICU and is critically ill, on ventilator with severe mental status change. She just finished dialysis without any major issue. About 2.3 liters of fluid was removed. She is on less dose of vasopressors at this time. PHYSICAL EXAMINATION: VITAL SIGNS: Most recent blood pressure 107/63, heart rate continues to be high related with AFib, temperature 37 degrees Celsius, 95% on mechanical ventilator. HEENT: Mucous membrane is moist. NECK: Supple. CHEST: Decreased breath sounds, but on ventilator. CARDIOVASCULAR: S1 and S2 regular, tachycardic. Soft systolic murmur heard. ABDOMEN: Soft, nontender. EXTREMITIES: Show trace edema with chronic skin changes with multiple ulcers. LABORATORY TESTS: From this morning was reviewed. Sodium 138, potassium 3.7, BUN 24, creatinine 3.87. Hemoglobin 13, platelet count 60,000. ASSESSMENT AND PLAN: A 54-year-old female with extremely complicated medical history including end-stage renal disease, on chronic hemodialysis [facility], admitted with altered mental status of multifactorial etiology. End-stage renal disease: Her next dialysis session will be on Wednesday as per her normal schedule. We will most likely do her for 3 hours 30 minutes and take fluid as tolerated. She tolerated dialysis today fairly well considering her overall situation. MTDD
[2019-09-27] MEDS: PEPTAMEN INTENSE VHP 1.0 CAL 1,000 ML BAG OG SCH (15:21)
[2019-09-27] MEDS: PHENYLEPHRINE HCL 40 MG in DEXTROSE 5% 500 ML IV SCH ×2 (15:51→21:09)
[2019-09-27] MEDS: AMPICILLIN 2,000 MG in SODIUM CHLOR 0.9% AD-VAN 100 ML IV SCH (15:57)
--- NOTE | 2019-09-27 16:57 | Hospitalist Progress Note ---
Date of Service September 27, 2019 Assessment & Plan (1) Acute encephalopathy: Empirically treating for meningitis given the SYSTEM DEVELOPER ASSOCIATE MANAGER shunt and overall clinical picture. - Plan for possible LP per ICU team. (2) Altered mental state: Possibly due to post-ictal confusion and hypoxemia. - Presently sedated on dexmedetomidine - Mental status improving slightly off propofol, but still no real purposeful reactions. (3) Acute respiratory failure with hypoxia and hypercarbia: Chronic hypoxia with baseline O2 2.5L/min. Chronic hypercapnia reflected in HCO3 29. - Presently on mechanical ventilation; settings per ICU (4) Atrial fibrillation with rapid ventricular response: HR presently in the 135 range, but with low blood pressure as well. - Continue beta-fatoumata and amiodarone per ICU team (5) Elevated INR: Unclear etiology as no known liver disease and now off warfarin. Possibly malnutrition. - Will defer vitamin K to ICU team (6) COPD (chronic obstructive pulmonary disease): On no maintenance inhalers for this. - Duonebs PRN for wheezing (7) ESRD (end stage renal disease): - Consult nephrology. - HD on 09/26 without issue. (8) S/P AVR (aortic valve replacement) and aortoplasty: Noted (9) Macrocytosis: Suspect secondary to EPO injections at dialysis. - Neurology asked for B12/folate (10) DVT prophylaxis: Heparin 5,000 units Q12h Admission and Anticipated Discharge Date Admission Date: September 25, 2019 Subjective Unresponsive to questions, but moving hands somewhat. Review of Systems Review of Systems: Unobtainable due to endotracheal tube Physical Exam Constitutional: WD/WN, vitals as above + acute distress and + mechanically ventilated Eyes: EOM intact bilaterally; no conjunctival abnormality ENMT: external ear and nose normal, oropharynx normal Neck: trachea midline, no thyromegaly normal visual inspection Respiratory: normal respiratory effort, lungs clear to auscultation no resp iratory distress Cardiovascular: Rate/Rhythm: regular rhythm and + tachycardic Heart Sounds: normal S1 and normal S2 Gastrointestinal (Abdomen): Inspection/Auscultation: abdomen normal to inspection; abdomen not distended Musculoskeletal: no cyanosis or clubbing, extremities motor strength 5/5 Skin: no rashes, warm and dry Neurologic: + does not move all extremities and + not awake Psychiatric: Orientation: + not alert Results & Data Results & Data ([facility]) Vital Signs (Past 12 Hours) Vital Signs Temp Pulse Pulse Pulse Resp BP BP 09/27/19 16:04 134 H 80/63 L 09/27/19 16:03 134 H 24 09/27/19 15:48 134 H 95/72 L 09/27/19 15:34 135 H 84/61 L 09/27/19 15:18 135 H 87/74 L 09/27/19 15:15 135 H 97/40 L 09/27/19 15:03 135 H 80/61 L 09/27/19 14:48 136 H 92/63 L 09/27/19 14:34 137 H 96/64 L 09/27/19 14:29 138 H 87/60 L 09/27/19 14:03 138 H 98/71 L 09/27/19 13:48 37.2 C 137 H 146 H 103/77 107/63 09/27/19 13:33 145 H 92/64 L 09/27/19 13:23 146 H 104/63 09/27/19 13:18 145 H 18 98/58 L 09/27/19 13:03 152 H 103/85 09/27/19 13:00 145 H 102/72 09/27/19 12:48 146 H 102/72 09/27/19 12:40 146 H 92/75 L 09/27/19 12:33 146 H 92/75 L 09/27/19 12:20 146 H 102/64 09/27/19 12:18 147 H 100/62 09/27/19 12:03 147 H 102/64 09/27/19 12:00 146 H 109/74 09/27/19 11:48 148 H 109/74 09/27/19 11:40 144 H 99/75 L 09/27/19 11:33 147 H 99/76 L 09/27/19 11:20 144 H 99/64 L 09/27/19 11:18 145 H 99/64 L 09/27/19 11:03 144 H 92/58 L 09/27/19 11:00 144 H 90/72 L 09/27/19 10:48 122 H 90/72 L 09/27/19 10:40 102 H 91/52 L 09/27/19 10:33 96 H 91/52 L 09/27/19 10:20 70 101/59 L 09/27/19 10:18 90 101/59 L 09/27/19 10:00 77 107/60 09/27/19 09:52 36.5 C 75 75 107/60 09/27/19 09:49 73 19 107/60 09/27/19 09:22 76 82/52 L 09/27/19 09:09 73 86/47 L 09/27/19 08:22 36.6 C 77 98/54 L 09/27/19 07:52 70 95/55 L 09/27/19 07:23 76 17 09/27/19 07:22 76 91/54 L 09/27/19 06:52 74 100/56 L 09/27/19 05:34 83 20 09/27/19 05:22 77 102/63 09/27/19 05:00 73 Pulse Ox 09/27/19 16:04 96 09/27/19 16:03 99 09/27/19 15:48 94 09/27/19 15:34 95 09/27/19 15:18 95 09/27/19 15:15 95 09/27/19 15:03 95 09/27/19 14:48 94 09/27/19 14:34 94 09/27/19 14:29 94 09/27/19 14:03 93 09/27/19 13:48 95 09/27/19 13:33 94 09/27/19 13:23 94 09/27/19 13:18 95 09/27/19 13:03 93 09/27/19 13:00 09/27/19 12:48 95 09/27/19 12:40 09/27/19 12:33 96 09/27/19 12:20 09/27/19 12:18 96 09/27/19 12:03 96 09/27/19 12:00 09/27/19 11:48 94 09/27/19 11:40 09/27/19 11:33 96 09/27/19 11:20 09/27/19 11:18 97 09/27/19 11:03 96 09/27/19 11:00 09/27/19 10:48 95 09/27/19 10:40 09/27/19 10:33 95 09/27/19 10:20 09/27/19 10:18 94 09/27/19 10:00 09/27/19 09:52 09/27/19 09:49 96 09/27/19 09:22 95 09/27/19 09:09 95 09/27/19 08:22 95 09/27/19 07:52 96 09/27/19 07:23 95 09/27/19 07:22 95 09/27/19 06:52 96 09/27/19 05:34 96 09/27/19 05:22 93 09/27/19 05:00 97 PG Care Time/CCT Total # of Minutes Spent Total Time Spent with Patient: Total time spent is greater than 50% in coordination of care (as documented) at patient's floor/unit and/or counseling patient: Coding Level of Care Code 30662 Subseq Hosp Care Lvl 3 Diagnoses Acute encephalopathy G93.40 Altered mental state R41.82 Acute respiratory failure with hypoxia and hypercarbia J96.01; J96.02 Atrial fibrillation with rapid ventricular response I48.91 Elevated INR R79.1 COPD (chronic obstructive pulmonary disease) J44.9 ESRD (end stage renal disease) N18.6 S/P AVR (aortic valve replacement) and aortoplasty Z95.2 Macrocytosis D75.89 DVT prophylaxis Z29.9
--- NOTE | 2019-09-27 18:04 | Cardiology Consultation ---
Date of Consultation September 27, 2019 Assessment & Plan (1) Atrial fibrillation with rapid ventricular response: (2) S/P AVR (aortic valve replacement) and aortoplasty: The patient is critically ill in the intensive care unit for support, and is also on the left urine for blood pressure support. Repeat EEG today suggests no seizure recurrence. Sepsis work-up in progress, and she is on empiric antibiotics. Review of an echocardiogram report to [facility] in May 2018 describes ventricular chamber dilatation, with RV pressure/volume overload pattern, and mild left ventricular hypokinesis, moderate to that which is noted on echocardiogram performed at our institution today. Would appear that the patient atrial fibrillation, with severe biatrial enlargement, right atrium larger than the left atrium. Her INR was mildly elevated on admission, and reportedly the patient is no longer on Coumadin since her traumatic brain injury. She remains thrombocytopenic. Review of her outpatient record, it appears that rate control has been challenging due to relative hypotension with dialysis, she is on midodrine, along with metoprolol 12.5 mg twice daily, and digoxin 125 mcg 2 times per week. Currently her rates remain elevated despite IV esmolol at a relatively high dose to 150 mcg/kg/min, IV amiodarone at 1 mg/min she is received IV digoxin, and boluses of IV metoprolol. At this time I have no other further advice in terms of additional rate control. Cardioversion would not be effective as she is in permanent atrial fibrillation, with the risk of embolic stroke she is not anticoagulated cannot be coagulated her history of trauma and thrombocytopenia. History of Present Illness Attending Physician: Gabe Jaime MD History of Present Illness Carina Preston is a 54 year old female seen in cardiology consultation per the request of Dr Hicks of critical care medicine for the evaluation of atrial fibrillation with rapid ventricular response and hypotension. The patient is a resident of the [facility] where she has resided for at least the past year due to her history of traumatic brain injury. On the day of admission 09/25/2019 she had apparently been at the outpatient dialysis unit and was noted to have an altered mental status and became restless and agitated during dialysis. Heart rates were noted to be elevated during dialysis with recorded heart rates of about 100 bpm. She was hospitalized and was on the PCU receiving I feel diltiazem for atrial fibrillation with rapid ventricular response. Was felt that she had a seizure episode while hospitalized and received lorazepam with termination of the seizure activity, but subsequently had agonal breathing and therefore underwent emergency endotracheal tube intubation for airway support. Currently, she is admitted to the intensive care unit, on the ventilator, pressors, with noted decreased mental status, hypotension, and tachycardia. Past Medical History: Patient follows with [facility] cardiology, most recent progress note dated 09/15/2018 History of thoracic aortic dissection in October, with repair including ascending aorta with 28 mm Hemashield graft, resuspension of the aortic valve Neck diastolic heart failure due to hypertensive heart disease SVT, evaluated by EP in the past, local therapy recommended Revision of aortic root and arch, bioprosthetic aortic valve replacement, [facility], Dr. Jacques, May 2014 Postoperative atrial fibrillation, subsequently deemed to have permanent atrial fibrillation per the Aug, 2018 progress note End-stage renal disease on hemodialysis Fall with traumatic brain injury, 2018, prompting craniotomy, [employer]IENCE STRATEGIST shunt placement Thrombocytopenia Allergies Allergy/AdvReac Type Severity Reaction Status Date / Time morphine Allergy Intermediate Photosensit Verified 09/25/19 12:03 ivity nitroglycerin Allergy Mild Nausea Verified 09/25/19 12:03 Home Medications Home Medications Medication Instructions Recorded Confirmed Type Combivent Respimat 2 puff INHALATION Q4 PRN 12/02/18 09/25/19 History acetaminophen 650 mg PO Q6H PRN MDD 3g/24hr 12/02/18 09/25/19 History acetaminophen 650 mg PO Q6H PRN MDD x1 dose 12/02/18 09/25/19 History allopurinol 100 mg PO DAILY 12/02/18 09/25/19 History calcium acetate(phosphat bind) 1,334 mg PO TIDM 12/02/18 09/25/19 History digoxin 125 mcg PO 2XWK 12/02/18 09/25/19 History metoprolol succinate 12.5 mg PO BID 12/02/18 09/25/19 History ondansetron HCl [Zofran] 4 mg PO Q6H PRN 12/02/18 09/25/19 History ropinirole 0.5 mg PO HS 12/02/18 09/25/19 History Aspercreme Heat 1 applic TOPICAL Q8H PRN 05/01/19 09/25/19 History aspirin 81 mg PO DAILY 05/01/19 09/25/19 History bisacodyl [Dulcolax (bisacodyl)] 10 mg NV DAILY PRN 05/01/19 09/25/19 History famotidine 20 mg PO BID 05/01/19 09/25/19 History folic acid 1 mg PO DAILY 05/01/19 09/25/19 History midodrine 10 mg PO DAILY 05/01/19 09/25/19 History oxycodone-acetaminophen 5 mg-325 1 tab PO Q6H PRN 06/08/19 09/25/19 History mg tablet Renal Vitamin 1 tab PO DAILY 07/14/19 09/25/19 History omeprazole 40 mg PO DAILY 07/14/19 09/25/19 History sertraline 50 mg PO DAILY 07/14/19 09/25/19 History trazodone 150 mg PO HS 07/14/19 09/25/19 History lorazepam 0.5 mg PO Q8 PRN 08/01/19 09/25/19 History sertraline 25 mg PO DAILY 08/01/19 09/25/19 History Patient History Medical History Anemia of chronic disease including ESRD Atrial fibrillation warfarin stopped 12/2018 d/t bleed; follows [facility] Chronic diastolic heart failure -d/t hypertensive heart disease; follows [facility] Dialysis patient ESRD (end stage renal disease) on dialysis Intraventricular hemorrhage large IPH/IVH s/p [employer] EXPERIENCE STRATEGIST shunt 12/2018 [facility] Malnutrition Multifocal pneumonia Secondary pulmonary hypertension Status post admission to intensive care unit Thrombocytopenia Surgical History Acute thoracic aortic dissection Type I s/p 2009 repair [facility] AV (arteriovenous fistula) L proximal radial basilic May 2019 [facility] AV fistula occlusion thrombosed L radiocephalic October 2018 [facility] H/O section H/O craniotomy Hx of craniotomy for evacuation of IPH/IVH hematoma w/ EVD placement then s/p L frontal [employer] EXPERIENCE STRATEGIST shunt 12/2018 [facility] S/P AVR (aortic valve replacement) and aortoplasty bioprosthetic AVR, root and arch aneurysm repair and coronary reimplantation May 2014 [facility] S/P tubal ligation Family History Sister Cervical cancer Lupus (systemic lupus erythematosus) Other No pertinent family history in first degree relatives Denies family history of Myocardial infarction Social History Preferred Language: Citizen Of [place] Communication Ability: Unable Nurse Emergency Room Required: No Beliefs That Will Affect Care: None marital status: Current Living Situation: Long-Term Feels Safe at Home: Yes Smoking Status: Never smoker Hx Alcohol Use: No Review of Systems Review of Systems: Unobtainable due to cognitive status and Unobtainable due to endotracheal tube Physical Exam Physical Exam: Temp Pulse Resp BP Pulse Ox 37.2 C 134 H 24 80/63 L 96 09/27/19 13:48 09/27/19 16:04 09/27/19 16:03 09/27/19 16:04 09/27/19 16:04 Constitutional: Chronically ill in appearance Respiratory: Decreased breath sounds the bases Cardiovascular: Rate/Rhythm: + tachycardic Heart Sounds: no murmur Gastrointestinal (Abdomen): normal bowel sounds, soft, nontender, no hepatosplenomegaly Results & Data ([facility]) Laboratory Results EKG 09/26/2019, atrial fibrillation with rapid ventricular response, 115 bpm, right bundle branch block morphology, age-indeterminate anterior lateral infarction pattern. Relatively unchanged compared to previous EKG at [facility] dated 12/10/2018, atrial fibrillation 100 bpm noted at that time, with interventricular conduction delay, QRS duration 168 ms.
[2019-09-27] MEDS ORDERED: AMIODARONE RATE CHANGE ONE ×2 (18:46→19:44)
[2019-09-27] MEDS ORDERED: PHENYLEPHRINE HCL 20 MG in DEXTROSE 5% 500 ML IV SCH (20:15)
[2019-09-27] MEDS: ACETAMINOPHEN 325 MG TAB PO PRN (23:08)
[2019-09-28] MEDS ORDERED: STAT IV Infusion **Titration per Protocol STA (00:33)
[2019-09-28] MEDS: dilTIAZem HCL 125 MG in DEXTROSE 5% 100 ML IV SCH ×2 (00:52→16:26)
[2019-09-28] MEDS ORDERED: METOPROLOL TARTRATE 1 MG/ML VIAL IV ONE ×2 (02:47→03:10)
[2019-09-28] MEDS ORDERED: METOPROLOL TARTRATE 1 MG/ML VIAL IV STA ×3 (03:08→06:10)
[2019-09-28] MEDS: AMPICILLIN 2,000 MG in SODIUM CHLOR 0.9% AD-VAN 100 ML IV SCH ×2 (03:24→15:51)
[2019-09-28] MEDS: ACETAMINOPHEN 325 MG TAB PO PRN (03:29)
[2019-09-28 04:36] LABS: Hematocrit (blood only) 42.1 % (37-47); Hemoglobin 12.8 g/dL (12.0-16.0); Mean Corpuscular Hemoglobin 30.2 pg (25-34); Mean Corpuscular Hgb Conc 30.4 g/dL (32-36); Mean Corpuscular Volume 99.3 fL (80-100); Nucleated RBC # (auto) 0.03 K/uL (0-0); Nucleated RBC % (auto) 0.2 %; RDW Coefficient of Variation 19.2 % (11.5-14.5); RDW Standard Deviation 69.3 fL (36.4-46.3); Red Blood Count 4.24 M/uL (4.2-5.4)
[2019-09-28 04:45] LABS: Mean Platelet Volume 11.2 fL (7.4-10.4); Platelet Count 80 K/uL (130-400)
[2019-09-28 05:08] LABS: Basophils # (auto) 0.01 K/uL (0-0.2); Basophils % (auto) 0.1 %; Eosinophils # (auto) 0.04 K/uL (0-0.5); Eosinophils % (auto) 0.3 %; Hypochromasia Present; Immature Granulocytes # (auto) 0.04 K/uL (0.00-0.02); Immature Granulocytes % (auto) 0.3 %; Lymphocytes % (auto) 5.4 %; Monocytes # (auto) 0.87 K/uL (0.11-0.59); Monocytes % (auto) 6.7 %; Neutrophils # (auto) 11.24 K/uL (1.4-6.5); Neutrophils % (auto) 87.2 %; Ovalocytes 1+; Polychromasia 1+
[2019-09-28 05:14] LABS: BUN Creatinine Ratio 6.6 (10-20); Calcium 8.5 mg/dl (8.5-10.1); Creatinine Clr Calc Pharmacy 13.1 ml/min; Est GFR (African American) 10.3; Est GFR (Non-African American) 8.9; Magnesium 1.9 mg/dl (1.8-2.4); Phosphorus 1.7 mg/dl (2.5-4.9); Potassium 3.6 mmol/L (3.5-5.1)
[2019-09-28] MEDS ORDERED: POTASSIUM PHOS 3 MMOL/1 ML INFUSION IV STA ×3 (05:20→12:25)
[2019-09-28] MEDS ORDERED: MAGNESIUM SULFATE / D5W 1 GM/100 ML BAG IV ONE (05:24)
[2019-09-28] MEDS ORDERED: POTASSIUM PHOSPHATE 15 MMOL in SODIUM CHLORIDE 0.9% 250 ML IV ONE ×2 (05:30→13:00)
[2019-09-28] MEDS ORDERED: POTASSIUM PHOSPHATE 9 MMOL in SODIUM CHLORIDE 0.9% 250 ML IV ONE (05:45)
[2019-09-28] MEDS ORDERED: POTASSIUM CHLORIDE 20 MEQ/15 ML UDC PO STA (06:12)
[2019-09-28] MEDS: MIDODRINE HCL 2.5 MG TAB PO SCH ×3 (07:58→23:00)
[2019-09-28] MEDS: FAMOTIDINE 20 MG TAB OG SCH (07:59)
[2019-09-28] MEDS: ASPIRIN 81 MG CHEW NG SCH (07:59)
[2019-09-28] MEDS: FOLIC ACID 1 MG TAB PO SCH (07:59)
[2019-09-28] MEDS ORDERED: AMIODARONE 200 MG TAB PO ONE (09:45)
--- NOTE | 2019-09-28 10:10 | Pharmacy Report ---
Pharmacy Abx Dose Short Note - Date of Service September 28, 2019 - Assessment & Plan Assessment * 54 year old F receiving VANCOMYCIN + CEFEPIME + AMPICILLIN for possible meningitis (in the setting of shunt placement) / pneumonia * Patient remains on vent, encephalopathy continues * Patient dose have h/o intraparenchymal/intraventricular hemorrhage w/ crani and shunt placement * Tmax 38 over last 24 hrs, + leukocytosis, intermittently dependent on vasopressors (phenylephrine) * + MRSA nasal swab * CXR read as: "Mildly progressive components of congestive heart failure" * Patient does have h/o ESRD on HD --. No HD planned today. HD likely to take place tomorrow. Plan Vancomycin * Random vancomycin level = 21.1. 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 Thank you.
--- NOTE | 2019-09-28 10:27 | Cardiology Progress Note ---
Date of Service September 28, 2019 Assessment & Plan (1) Atrial fibrillation with rapid ventricular response: History of permanent AF. RBBB. Severe RV chamber dilatation, RV systolic dysfunction, severe TR (all chronic echo findings). Asc aorta repair, bio AVR (initial operation 2008, redo 2014) ESRD on HD. Fall with traumatic brain injury, 2019, prompting craniotomy, HERB DOCTOR shunt placement Thrombocytopenia Patient is no longer on esmolol or phenylephrine infusions, and low BP is better. She is now on diltiazem gtt on 5 mg /hr, and amiodarone 0.5 mg /hr. AF now in the 80s as compared to 130-150 bpm. Pt not candidate for anticoagulation. Continue present treatment. Subjective Patient seen in follow up. HR and BP improved this am. Off of sedation , however , still somnolent. Physical Exam Physical Exam: Temp Pulse Resp BP Pulse Ox 37.8 C H 85 22 104/52 L 95 09/28/19 08:00 09/28/19 10:02 09/28/19 10:02 09/28/19 09:58 09/28/19 10:02 Constitutional: + cachectic Respiratory: normal respiratory effort, lungs clear to auscultation Cardiovascular: Rate/Rhythm: + tachycardic Heart Sounds: no murmur Vessels: no JVD Extremities: no edema Gastrointestinal (Abdomen): normal bowel sounds, soft, nontender, no hepatosplenomegaly Results & Data Vital Signs (Past 12 Hours) Vital Signs Temp Pulse Resp BP Pulse Ox 09/28/19 10:02 85 22 95 09/28/19 09:58 81 104/52 L 94 09/28/19 08:57 85 100/60 94 09/28/19 08:19 89 98/50 L 94 09/28/19 08:00 37.8 C H 89 94 09/28/19 07:49 85 102/52 L 94 09/28/19 07:38 89 09/28/19 07:20 94 H 27 H 94 09/28/19 07:19 88 101/55 L 93 09/28/19 06:49 87 103/62 94 09/28/19 06:30 96 H 93 09/28/19 06:29 89 110/62 09/28/19 06:00 106 H 110/62 93 09/28/19 05:37 85 27 H 95 09/28/19 05:30 86 92/58 L 94 09/28/19 05:00 91 H 93/51 L 95 09/28/19 04:30 77 94/53 L 95 09/28/19 04:21 75 82/44 L 93 09/28/19 04:00 82 99/55 L 94 09/28/19 03:30 38 C H 91 H 99/61 L 94 09/28/19 03:27 115 H 09/28/19 03:14 81 24 94 09/28/19 03:13 92 H 106/68 94 09/28/19 03:00 97 H 94 09/28/19 02:50 137 H 09/28/19 02:30 136 H 102/69 94 09/28/19 02:00 135 H 98/63 L 94 09/28/19 01:30 135 H 102/72 93 09/28/19 01:00 134 H 100/62 94 09/28/19 00:30 131 H 105/68 94 09/28/19 00:00 37.8 C H 130 H 87/53 L 95 09/27/19 23:31 130 H 24 94 09/27/19 23:30 130 H 110/75 93 09/27/19 23:00 129 H 104/58 L 95 09/27/19 22:30 129 H 114/60 95 Laboratory Results Cardiac Enzymes 09/27/19 Range/Units 12:53 Troponin I 0.131 H* (0-0.045) ng/ml CBC 09/28/19 Range/Units 04:22 WBC 12.90 H (4.8-10.8) K/uL RBC 4.24 (4.2-5.4) M/uL Hgb 12.8 (12.0-16.0) g/dL Hct 42.1 (37-47) % Plt Count 80 L (130-400) K/uL Neut # (Auto) 11.24 H (1.4-6.5) K/uL Lymph # (Auto) 0.70 L (1.2-3.4) K/uL [place] # (Auto) 0.87 H (0.11-0.59) K/uL Eos # (Auto) 0.04 (0-0.5) K/uL Baso # (Auto) 0.01 (0-0.2) K/uL Comprehensive Metabolic Panel 09/27/19 09/28/19 Range/Units 12:53 04:22 Sodium 138 138 (136-145) mmol/L Potassium 3.7 3.6 (3.5-5.1) mmol/L Chloride 102 104 (98-107) mmol/L Carbon Dioxide 28 23 (21-32) mmol/L BUN 24 H D 33 H (7-18) mg/dl Creatinine 3.87 H D 5.04 H* D (0.6-1.2) mg/dl Glucose 91 85 (70-99) mg/dl Calcium 8.8 8.5 (8.5-10.1) mg/dl Intake and Output 09/27/19 09/28/19 09/28/19 22:59 06:59 14:59 Intake Total 1326.098 / 2921.491 1029.776 / 2921.491 734.194 / 734.194 Output Total 1 / 0 / 1 0 / 0 Balance 1325.098 / 2920.491 1029.776 / 2920.491 734.194 / 734.194 Intake: IV 1256.098 / 2570.491 878.776 / 2570.491 556.194 / 556.194 Cordarone 450 mg In Dextrose 5% 237.54 / 237.54 177.577 / 177.577 Polyolefin Container 241 ml @ 0.5 MG/MIN 16.667 mls/hr IV . Q15H [facility] Rx#:[id number] Ampicillin 2,000 mg In Nss Ad- 100 / 200 100 / 200 Van 100 ml @ 200 mls/hr IV Q12H [place] Rx#:[id number] BREVIBLOC 2,500 mg In 250 ml @ 808.558 / 1355.467 320.409 / 1355.467 0 MCG/KG/MIN IV .Q0M [place] Rx#: [id number] MAGNESIUM SULFATE / D5W 1 gm In 100 / 100 100 ml @ 50 mls/hr IV ONE ONE Rx#:[id number] Jian-Synephrine 40 mg In D5w 500 155.2 / 174.4 19.2 / 19.2 ml @ 0 MCG/KG/MIN IV .Q0M [place] Rx#:[id number] Potassium Phosphate 9 Mmol In 255 / 255 253 / 253 Nss 250 ml @ 88 mls/hr IV ONE ONE Rx#:[id number] Vancomycin HCl 500 mg In Sodium 110 / 110 Chloride 100 ml @ 55 mls/hr IV .AFTER HD ONE Rx#:[id number] Cardizem 125 mg In D5 100 ml @ 48.167 / 48.167 6.417 / 6.417 5 MG/HR 5 mls/hr IV .Q24H [facility] Rx#:[id number] Oral 0 / 0 Tube Feeding 70 / 221 151 / 221 98 / 98 Tube Irrigant 30 / 30 Other 50 / 50 Output: Urine 0 / 0 # Bowel Movements 1 / 1 0 / 1 0 / 0 Other: # Unmeasured Voids 0 Weight 81.3 kg
[2019-09-28] MEDS: METOPROLOL TARTRATE 25 MG TAB PO SCH ×3 (10:34→20:40)
--- NOTE | 2019-09-28 10:34 | Critical Care Progress Note ---
Date of Service September 28, 2019 Assessment & Plan (1) Status post admission to intensive care unit: 54-year-old female with a past medical history of end-stage renal disease on hemodialysis, poor medical compliance, aortic valve replacement, secondary pulmonary hypertension, COPD and atrial fibrillation who resides at her side care home was admitted due to altered mental status and ultimately intubated on the floor due to lethargy and inability to protect her airway. Patient continues to be very encephalopathic. It appears that her baseline function is quite poor as she resides in a care home. We did consult palliative care, but they have not seen the patient as of yet. I did discuss the case with the patient's [id number] and they have indicated in the past that she has been a DO NOT RESUSCITATE and DO NOT INTUBATE. We will readdress this with them again today. Continue diltiazem and metoprolol for rate control for atrial fibrillation. We did add amiodarone yesterday. Continue amiodarone drip today at half a milligram and will add 200 mg p.o. twice daily of amiodarone to the NG tube. We are transitioning to p.o. diltiazem as well. We are currently holding off on full dose anticoagulation given her history of intracerebral hemorrhage and her thrombocytopenia. We will start heparin for DVT prophylaxis. Her HIT antibody panel was negative yesterday. Platelet counts are improved today. She does have an elevated INR for unclear reasons perhaps related to early cirrhosis versus nutritional deficiencies. Ammonia was mildly elevated 38 yesterday. Neurology is following the patient and they do not feel that there is any underlying seizure activity. EEGs x2 have been negative for epileptiform discharges. Continuing vancomycin, cefepime and ampicillin given her PLASTER PATTERN CASTER shunt and altered mental status. May need to consider transfer to a tertiary care center to access the PLASTER PATTERN CASTER shunt for a sample if the family continues to want aggressive care. We will obtain an MRI of the brain today. Continue midodrine for hypotension. Continue tube feeds. Nutrition on board. Famotidine for GI prophylaxis. Overall prognosis remains poor. Palliative care consultation is pending. Patient discussed on interdisciplinary bedside rounds today. CRITICAL CARE TIME - I have personally spent 34 minutes of critical care time in the direct management of this patient. This is a life/limb threatening event. This includes time spent evaluating patient, direct bedside care, chart review, placing orders, interpretation of diagnostic studies, discussion with consultants, patient, and family members, as well as other required patient management activities. This time is exclusive of all separately billable procedures, and teaching time and separate from and in addition to any other critical care service time. (2) Acute encephalopathy: (3) Acute and chronic respiratory failure: (4) Acute respiratory failure with hypoxia and hypercarbia: (5) CHF (congestive heart failure): (6) Atrial fibrillation with rapid ventricular response: (7) Multifocal pneumonia: (8) ESRD (end stage renal disease) on dialysis: (9) Secondary pulmonary hypertension: Admission and Anticipated Discharge Date Admission Date: September 25, 2019 Subjective Patient off sedation and not following commands. She does open her eyes spontaneously and occasionally move her upper extremities. Heart rate improved overnight. She was weaned off the esmolol drip and transition to a diltiazem drip. Continues on amiodarone drip as well. Heart rates in the low to mid 80s currently. We did do a spontaneous breathing trial today and her respiratory rates were in the high 20s and early 30s. Due to the fact that she is still severely encephalopathic, we switched her back to volume control. Review of Systems Review of Systems: Unobtainable due to endotracheal tube and Unobtainable due to reduced consciousness Physical Exam Constitutional: Intubated and appears to be sedated. Older than stated age. Eyes: Disconjugate gaze. ENMT: external ear and nose normal, oropharynx normal Neck: trachea midline, no thyromegaly Respiratory: Coarse breath sounds on the ventilator. Cardiovascular: Irregularly irregular. No murmurs rubs or gallops. Gastrointestinal (Abdomen): normal bowel sounds, soft, nontender, no hepatosplenomegaly Musculoskeletal: no cyanosis or clubbing, extremities motor strength 5/5 Skin: no rashes, warm and dry Neurologic: Profoundly encephalopathic. Does not follow commands. Psychiatric: Unable to be fully assessed due to her mental status and intubation. Results & Data Results & Data ([facility]) Vital Signs (Past 12 Hours) Vital Signs Temp Pulse Resp BP Pulse Ox 09/28/19 10:02 85 22 95 09/28/19 09:58 81 104/52 L 94 09/28/19 08:57 85 100/60 94 09/28/19 08:19 89 98/50 L 94 09/28/19 08:00 100.0 F H 89 94 09/28/19 07:49 85 102/52 L 94 09/28/19 07:38 89 09/28/19 07:20 94 H 27 H 94 09/28/19 07:19 88 101/55 L 93 09/28/19 06:49 87 103/62 94 09/28/19 06:30 96 H 93 09/28/19 06:29 89 110/62 09/28/19 06:00 106 H 110/62 93 09/28/19 05:37 85 27 H 95 09/28/19 05:30 86 92/58 L 94 09/28/19 05:00 91 H 93/51 L 95 09/28/19 04:30 77 94/53 L 95 09/28/19 04:21 75 82/44 L 93 09/28/19 04:00 82 99/55 L 94 09/28/19 03:30 100.4 F H 91 H 99/61 L 94 09/28/19 03:27 115 H 09/28/19 03:14 81 24 94 09/28/19 03:13 92 H 106/68 94 09/28/19 03:00 97 H 94 09/28/19 02:50 137 H 09/28/19 02:30 136 H 102/69 94 09/28/19 02:00 135 H 98/63 L 94 09/28/19 01:30 135 H 102/72 93 09/28/19 01:00 134 H 100/62 94 09/28/19 00:30 131 H 105/68 94 09/28/19 00:00 100.0 F H 130 H 87/53 L 95 09/27/19 23:31 130 H 24 94 09/27/19 23:30 130 H 110/75 93 09/27/19 23:00 129 H 104/58 L 95 09/27/19 22:30 129 H 114/60 95 I personally reviewed her laboratory data, chest imaging and previous notes Coding Level of Care Code Critical Care 1st 30-74 mins Diagnoses Status post admission to intensive care unit Acute encephalopathy G93.40 Acute and chronic respiratory failure J96.20 Acute respiratory failure with hypoxia and hypercarbia J96.01; J96.02 CHF (congestive heart failure) I50.9 Heart failure chronicity: acute Heart failure type: unspecified Atrial fibrillation with rapid ventricular response I48.91 Multifocal pneumonia J18.9 ESRD (end stage renal disease) on dialysis N18.6; Z99.2 Secondary pulmonary hypertension Time Spent (min) 34 (1) CHF (congestive heart failure) Heart failure chronicity: acute Heart failure type: unspecified Qualified Code(s): I50.9 - Heart failure, unspecified
[2019-09-28] MEDS: ESMOLOL / NSS 2,500 MG/250 ML BAG IV SCH ×2 (11:22→11:23)
[2019-09-28] MEDS: HEPARIN SOD 5,000 UNIT/0.5 ML VIAL SQ SCH ×2 (11:45→20:41)
[2019-09-28] MEDS: AMIODARONE 450 MG in D5W 250ML IN *POLYOLEFIN BAG* 241 ML IV SCH ×2 (13:00→15:46)
--- NOTE | 2019-09-28 13:27 | Palliative Care Consultation ---
Date of Consultation September 28, 2019 Assessment & Plan (1) Goals of care, counseling/discussion: -54 year old female patient with PMH end-stage renal disease on hemodialysis, poor medical compliance, aortic valve replacement, secondary pulmonary hypertension, COPD on chronic oxygen, s/p craniotomy and shunt after fall with traumatic head injury 2019, thrombocytopenia, anemia, and atrial fibrillation, presented to the hospital from dialysis center for altered mental status. Patient resides at [facility] since her TBI in 2019. On arrival to ED, patient noted to be confused and in afib with RVR. She was admitted to telemetry and started on diltiazem. Later that evening, patient was noted to be actively seizing. Code purple was called, patient was given 2mg IV lorazepam emergently. Patient was unarousable and postictal, so she was intubated and transferred to ICU. Neurology consulted. EEG negative for seizure activity x2. Patient is on abx prophylactically given her history of SHED BOSS shunt, consideration for LP and transfer to tertiary care being discussed. Her INR is elevated for unclear reasons. Platelets low but improving, HIIT panel negative. Remains on diltiazem, metoprolol and amiodarone for rate control of the atrial fibrillation. Patient is off sedation, on CPAP trial via ETT this morning. Patient did become more tachycardic during weaning trial, so she is now back on volume control. Still encephalopathic and not really following commands. But she is moving and spontaneously opened eyes. Given patient's poor baseline functional status, multiple comorbidities with ongoing critical illness, outside plant technician states her prognosis is poor. Palliative care is consulted to discuss goals of care. -Patient to be seen by palliative MD this afternoon. -Need to coordinate family conference call with patient's sister in law and son(s), along with outside plant technician and palliative care to discuss goals of care and plan moving forward. -Palliative MD spoke with patient's [id number] and oldest son, Almas. They have decided that they do NOT want her to be transferred to tertiary care. They also stated that if patient is not able to be weaned from ventilator, that patient would not want a trach. -Plan to continue current treatment (2) Acute encephalopathy: (3) ESRD (end stage renal disease) on dialysis: (4) Acute respiratory failure with hypoxia and hypercarbia: Supervising Physician Co-Signing Physician Notes Chart reviewed, patient seen and examined. Collaborated with CARLOS Craey as well as attending physician Dr. Jaime and ICU physician Dr. Hicks Spoke with patient's [id number], Niki Charles, as well as patient's oldest son Almas by conference call. Discussed patient's current status-she is slightly more alert today, has not been on sedation the past 2 days, remains intubated. Patient unable to follow simple commands, opens eyes but gaze is unfocused, does appear to hear. Discussed with family how aggressive they would like to be-if they would like the patient transferred to a tertiary care center versus continuing treatment here. Family decided they would like to keep patient here and monitor her progress. Did discuss if she was unable to be weaned from the vent whether or not she Charis tracheostomy-both her igzcyt-ka-zcb and son stated that she would not want that, nor were they want that for her. PE: Patient opens eyes briefly in response to physical stimulation HEENT: EOMI, gaze unfocused Respirations: Good breath sounds, intubated CV: Regular rate, lower extremities elevated so there is no lower extremity edema but has pitting edema of thighs up to the level of the buttocks. Abdomen: Soft, no grimace on palpation Neuro: Unable to follow simple commands, opens eyes, gaze unfocused Agree with above note, assessment and plan as per CARLOS Carey. Will continue to follow and update family as to patient's progress. We will plan to discuss CODE STATUS with next conversation. We will continue to assist family with medical decision making. History of Present Illness Attending Physician: Gabe Jaime MD History of Present Illness This 54 year old female patient with PMH end-stage renal disease on hemodialysis, poor medical compliance, aortic valve replacement, secondary pulmonary hypertension, COPD on chronic oxygen, s/p craniotomy and shunt after fall with traumatic head injury 2019, thrombocytopenia, anemia, and atrial fibrillation, presented to the hospital from dialysis center for altered mental status. Patient resides at [facility] since her TBI in 2019. On arrival to ED, patient noted to be confused and in afib with RVR. She was admitted to telemetry and started on diltiazem. Later that evening, patient was noted to be actively seizing. Lesli borden was called, patient was given 2mg IV lorazepam emergently. Patient was unarousable and postictal, so she was intubated and transferred to ICU. Neurology consulted. EEG negative for seizure activity x2. Patient is on abx prophylactically given her history of SHED BOSS shunt, consideration for LP and transfer to tertiary care being discussed. Her INR is elevated for unclear reasons. Platelets low but improving, HIIT panel negative. Remains on diltiazem, metoprolol and amiodarone for rate control of the atrial fibrillation. Patient is off sedation, on CPAP trial via ETT this morning. Patient did become more tachycardic during weaning trial, so she is now back on volume control. Still encephalopathic and not really following commands. But she is moving and spontaneously opened eyes. Given patient's poor baseline functional status, multiple comorbidities with ongoing critical illness, outside plant technician states her prognosis is poor. Palliative care is consulted to discuss goals of care. Thank you kindly for this consult. Palliative care team will follow as needed. Allergies Allergy/AdvReac Type Severity Reaction Status Date / Time morphine Allergy Intermediate Photosensit Verified 09/25/19 12:03 ivity nitroglycerin Allergy Mild Nausea Verified 09/25/19 12:03 Home Medications Home Medications Medication Instructions Recorded Confirmed Type Combivent Respimat 2 puff INHALATION Q4 PRN 12/02/18 09/25/19 History acetaminophen 650 mg PO Q6H PRN MDD 3g/24hr 12/02/18 09/25/19 History acetaminophen 650 mg PO Q6H PRN MDD x1 dose 12/02/18 09/25/19 History allopurinol 100 mg PO DAILY 12/02/18 09/25/19 History calcium acetate(phosphat bind) 1,334 mg PO TIDM 12/02/18 09/25/19 History digoxin 125 mcg PO 2XWK 12/02/18 09/25/19 History metoprolol succinate 12.5 mg PO BID 12/02/18 09/25/19 History ondansetron HCl [Zofran] 4 mg PO Q6H PRN 12/02/18 09/25/19 History ropinirole 0.5 mg PO HS 12/02/18 09/25/19 History Aspercreme Heat 1 applic TOPICAL Q8H PRN 05/01/19 09/25/19 History aspirin 81 mg PO DAILY 05/01/19 09/25/19 History bisacodyl [Dulcolax (bisacodyl)] [address] DAILY PRN 05/01/19 09/25/19 History famotidine 20 mg PO BID 05/01/19 09/25/19 History folic acid 1 mg PO DAILY 05/01/19 09/25/19 History midodrine 10 mg PO DAILY 05/01/19 09/25/19 History oxycodone-acetaminophen 5 mg-325 1 tab PO Q6H PRN 06/08/19 09/25/19 History mg tablet Renal Vitamin 1 tab PO DAILY 07/14/19 09/25/19 History omeprazole 40 mg PO DAILY 07/14/19 09/25/19 History sertraline 50 mg PO DAILY 07/14/19 09/25/19 History trazodone 150 mg PO HS 07/14/19 09/25/19 History lorazepam 0.5 mg PO Q8 PRN 08/01/19 09/25/19 History sertraline 25 mg PO DAILY 08/01/19 09/25/19 History Patient History Medical History Anemia of chronic disease including ESRD Atrial fibrillation warfarin stopped 12/2018 d/t bleed; [place] [facility] [place] diastolic heart failure -d/t hypertensive heart disease; [place] [facility] [place] patient ESRD (end stage renal disease) on dialysis Intraventricular hemorrhage large IPH/IVH s/p SHED BOSS shunt 12/2018 [facility] [place] Malnutrition Multifocal pneumonia Secondary pulmonary hypertension Status post admission to intensive care unit Thrombocytopenia Surgical History Acute thoracic aortic dissection Type I s/p 2009 repair [facility] [place] AV (arteriovenous fistula) L proximal radial basilic May 2019 [facility] [place] AV fistula occlusion thrombosed L radiocephalic October 2018 [facility] [place] H/O section H/O craniotomy Hx of craniotomy for evacuation of IPH/IVH hematoma w/ EVD placement then s/p L frontal SHED BOSS shunt 12/2018 [facility] [place] S/P AVR (aortic valve replacement) and aortoplasty bioprosthetic AVR, root and arch aneurysm repair and coronary reimplantation May 2014 [facility] [place] S/P tubal ligation Family History Sister Cervical cancer Lupus (systemic lupus erythematosus) Other No pertinent family history in first degree relatives Denies family history of Myocardial infarction Social History Preferred Language: Upper Sorbian Communication Ability: Unable Business Administrator Required: No Beliefs That Will Affect Care: None marital status: Current Living Situation: Halfway Feels Safe at Home: Yes Smoking Status: Never smoker Hx Alcohol Use: No Results & Data Vital Signs (Past 12 Hours) Vital Signs Temp Pulse Resp BP Pulse Ox 09/28/19 12:00 79 95 09/28/19 11:58 37.6 C H 86 88/65 L 95 09/28/19 10:58 79 99/50 L 93 09/28/19 10:02 85 22 95 09/28/19 09:58 81 104/52 L 94 09/28/19 08:57 85 100/60 94 09/28/19 08:19 89 98/50 L 94 09/28/19 08:00 37.8 C H 89 94 09/28/19 07:49 85 102/52 L 94 09/28/19 07:38 89 09/28/19 07:20 94 H 27 H 94 09/28/19 07:19 88 101/55 L 93 09/28/19 06:49 87 103/62 94 09/28/19 06:30 96 H 93 09/28/19 06:29 89 110/62 09/28/19 06:00 106 H 110/62 93 09/28/19 05:37 85 27 H 95 09/28/19 05:30 86 92/58 L 94 09/28/19 05:00 91 H 93/51 L 95 09/28/19 04:30 77 94/53 L 95 09/28/19 04:21 75 82/44 L 93 09/28/19 04:00 82 99/55 L 94 09/28/19 03:30 38 C H 91 H 99/61 L 94 09/28/19 03:27 115 H 09/28/19 03:14 81 24 94 09/28/19 03:13 92 H 106/68 94 09/28/19 03:00 97 H 94 09/28/19 02:50 137 H 09/28/19 02:30 136 H 102/69 94 09/28/19 02:00 135 H 98/63 L 94 09/28/19 01:30 135 H 102/72 93 Coding Level of Care Code 78164 Inpt Consult Level 3 Diagnoses Goals of care, counseling/discussion Z71.89 Acute encephalopathy G93.40 ESRD (end stage renal disease) on dialysis N18.6; Z99.2 Acute respiratory failure with hypoxia and hypercarbia J96.01; J96.02 Time Spent (min) 95 Time Spent Midlevel A total of 50 minutes spent by this RIVET HOLE PUNCHER in reviewing chart, speaking with physician and IDT regarding patient condition and plan of care. Attending Spent 45 minutes in addition to the 50 minutes spent by CARLOS Carey for total of 95 minutes with greater than 50% of the time spent at bedside and on the unit collaborated with family by phone as well as ICU attending.
[2019-09-28] MEDS: CEFEPIME 1,000 MG in SYRINGE 0 ML IV SCH (13:53)
[2019-09-28] MEDS: fentaNYL citrate 100 MCG/2 ML VIAL IV PRN ×3 (14:35→20:46)
--- NOTE | 2019-09-28 16:58 | Hospitalist Progress Note ---
Date of Service September 28, 2019 Assessment & Plan (1) Acute encephalopathy: Empirically treating for meningitis given the FINANCIAL ENGINEER shunt and overall clinical picture. - Plan for possible LP per ICU team. - No improvement today. Still off sedation apart from some PRN fentanyl. (2) Altered mental state: Possibly due to post-ictal confusion and hypoxemia. - Presently sedated on dexmedetomidine - Mental status improving slightly off propofol, but still no real purposeful reactions. (3) Acute respiratory failure with hypoxia and hypercarbia: Chronic hypoxia with baseline O2 2.5L/min. Chronic hypercapnia reflected in HCO3 29. - Presently on mechanical ventilation; settings per ICU (4) Atrial fibrillation with rapid ventricular response: HR presently in the 90 range, but with low blood pressure as well. - Continue beta-fatoumata and amiodarone per ICU team (5) Elevated INR: Unclear etiology as no known liver disease and now off warfarin. Possibly malnutrition. - Will defer vitamin K to ICU team (6) COPD (chronic obstructive pulmonary disease): On no maintenance inhalers for this. - Duonebs PRN for wheezing (7) ESRD (end stage renal disease): - Consult nephrology. - HD on 09/26 without issue. (8) S/P AVR (aortic valve replacement) and aortoplasty: Noted (9) Macrocytosis: Suspect secondary to EPO injections at dialysis. - Neurology asked for B12/folate (10) DVT prophylaxis: Heparin 5,000 units Q12h Admission and Anticipated Discharge Date Admission Date: September 25, 2019 Subjective Unresponsive and intubated. Review of Systems Review of Systems: Unobtainable due to cognitive status and Unobtainable due to endotracheal tube Physical Exam Constitutional: WD/WN, vitals as above + acute distress and + mechanically ventilated Eyes: EOM intact bilaterally; no conjunctival abnormality ENMT: external ear and nose normal, oropharynx normal Neck: trachea midline, no thyromegaly normal visual inspection Respiratory: normal respiratory effort, lungs clear to auscultation + respiratory distress Cardiovascular: Rate/Rhythm: regular rhythm and + tachycardic Heart Sounds: normal S1 and normal S2 Gastrointestinal (Abdomen): Inspection/Auscultation: abdomen normal to inspection; abdomen not distended Musculoskeletal: no cyanosis or clubbing, extremities motor strength 5/5 Skin: no rashes, warm and dry Neurologic: + does not move all extremities and + not awake Psychiatric: Orientation: + not alert Results & Data Results & Data ([facility]) Vital Signs (Past 12 Hours) Vital Signs Temp Pulse Resp BP Pulse Ox 09/28/19 15:58 38 C H 93 H 105/70 94 09/28/19 14:58 83 97/52 L 94 09/28/19 14:54 84 09/28/19 13:58 77 110/59 L 93 09/28/19 13:30 84 23 95 09/28/19 12:58 81 104/63 95 09/28/19 12:00 79 95 09/28/19 11:58 37.6 C H 86 88/65 L 95 09/28/19 10:58 79 99/50 L 93 09/28/19 10:02 85 22 95 09/28/19 09:58 81 104/52 L 94 09/28/19 08:57 85 100/60 94 09/28/19 08:19 89 98/50 L 94 09/28/19 08:00 37.8 C H 89 94 09/28/19 07:49 85 102/52 L 94 09/28/19 07:38 89 09/28/19 07:20 94 H 27 H 94 09/28/19 07:19 88 101/55 L 93 09/28/19 06:49 87 103/62 94 09/28/19 06:30 96 H 93 09/28/19 06:29 89 110/62 09/28/19 06:00 106 H 110/62 93 09/28/19 05:37 85 27 H 95 09/28/19 05:30 86 92/58 L 94 09/28/19 05:00 91 H 93/51 L 95 PG Care Time/CCT Total # of Minutes Spent Total Time Spent with Patient: Total time spent is greater than 50% in coordination of care (as documented) at patient's floor/unit and/or counseling patient: Coding Level of Care Code 79109 Subseq Hosp Care Lvl 2 Diagnoses Acute encephalopathy G93.40 Altered mental state R41.82 Acute respiratory failure with hypoxia and hypercarbia J96.01; J96.02 Atrial fibrillation with rapid ventricular response I48.91 Elevated INR R79.1 COPD (chronic obstructive pulmonary disease) J44.9 ESRD (end stage renal disease) N18.6 S/P AVR (aortic valve replacement) and aortoplasty Z95.2 Macrocytosis D75.89 DVT prophylaxis Z29.9
[2019-09-28] MEDS: AMIODARONE 200 MG TAB PO SCH (20:39)
[2019-09-28] MEDS: LACTULOSE SYRUP 20 GM/30 ML UDC PO SCH (20:39)
[2019-09-29] MEDS: fentaNYL citrate 100 MCG/2 ML VIAL IV PRN ×5 (00:05→21:56)
[2019-09-29] MEDS: AMPICILLIN 2,000 MG in SODIUM CHLOR 0.9% AD-VAN 100 ML IV SCH ×2 (03:18→17:04)
[2019-09-29] MEDS: AMIODARONE 450 MG in D5W 250ML IN *POLYOLEFIN BAG* 241 ML IV SCH (04:51)
[2019-09-29 05:21] LABS: Mean Corpuscular Hgb Conc 31.3 g/dL (32-36)
[2019-09-29 05:51] LABS: Hemoglobin 12.5 g/dL (12.0-16.0); Mean Corpuscular Hemoglobin 30.6 pg (25-34); Platelet Count 88 K/uL (130-400); RDW Coefficient of Variation 19.3 % (11.5-14.5); RDW Standard Deviation 69.3 fL (36.4-46.3); Red Blood Count 4.08 M/uL (4.2-5.4); White Blood Count 12.31 K/uL (4.8-10.8)
[2019-09-29 05:52] LABS: Basophils # (auto) 0.02 K/uL (0-0.2); Basophils % (auto) 0.2 %; Echinocytes 1+; Eosinophils # (auto) 0.13 K/uL (0-0.5); Eosinophils % (auto) 1.1 %; Giant Platelets 1+; Immature Granulocytes # (auto) 0.03 K/uL (0.00-0.02); Immature Granulocytes % (auto) 0.2 %; Lymphocytes # (auto) 0.47 K/uL (1.2-3.4); Lymphocytes % (auto) 3.8 %; Monocytes # (auto) 0.94 K/uL (0.11-0.59); Monocytes % (auto) 7.6 %; Neutrophils # (auto) 10.72 K/uL (1.4-6.5); Neutrophils % (auto) 87.1 %; Platelet Estimate Decreased (Normal); Polychromasia 1+; Target Cells 1+; Tear Drop Cells 1+
[2019-09-29 05:58] LABS: iSTAT Allen Test Pass; iSTAT Arterial Blood Gas HCO3 22 meg/L (19-24); iSTAT Arterial Blood Gas pCO2 42 mmHg (35-46); iSTAT Arterial Blood Gas pH 7.33 (7.35-7.45); iSTAT Arterial Blood Gas pO2 69 mmHg (80-95); iSTAT Carbon Dioxide 23 mmol/L (24-31); iSTAT FiO2 35 %; iSTAT Site R Radial
[2019-09-29 06:36] LABS: INR 1.5 (0.9-1.1); Prothrombin Time 15.1 Seconds (9.0-12.0)
[2019-09-29] MEDS: PEPTAMEN INTENSE VHP 1.0 CAL 1,000 ML BAG OG SCH (07:15)
[2019-09-29 07:25] LABS: BUN Creatinine Ratio 6.9 (10-20); Calcium 8.6 mg/dl (8.5-10.1); Creatinine Clr Calc Pharmacy 11.2 ml/min; Est GFR (African American) 8.5; Est GFR (Non-African American) 7.3; Magnesium 2.4 mg/dl (1.8-2.4); Phosphorus 2.4 mg/dl (2.5-4.9); Potassium 3.8 mmol/L (3.5-5.1)
--- NOTE | 2019-09-29 07:41 | XRay Report ---
XR chest 1V portable HISTORY: Intubation. Respiratory failure. COMPARISON: Chest 09/27/2019. FINDINGS: No pneumothorax. There are low lung volumes with mild elevation the right hemidiaphragm. En dotracheal tube terminates approximately 1.7 cm from the travis. Nasogastric tube likely terminates b elow the diaphragm. However, the distal nasogastric tube is not well visualized. Right jugular dual-l umen catheter terminates in the right atrium. This remains unchanged. Left-sided ventriculoperitoneal shunt catheter is again noted. Interstitial thickening and perihilar airspace opacities have slightl y improved. No pneumothorax. The heart remains enlarged. There are poststernotomy changes. IMPRESSION: 1. Slight improved aeration within the lungs. 2. The distal nasogastric tube is not well visualized but likely terminates below the diaphragm. Othe rwise, satisfactory support line placement. 3. Stable cardiomegaly. ACT 112: Negative or not required by law. Electronically signed by: Bryan Nguyen M.D. 09/29/2019 7:39 AM
[2019-09-29] MEDS: MIDODRINE HCL 2.5 MG TAB PO SCH ×2 (08:58→17:04)
[2019-09-29] MEDS: LACTULOSE SYRUP 20 GM/30 ML UDC PO SCH ×2 (08:59→20:48)
[2019-09-29] MEDS: AMIODARONE 200 MG TAB PO SCH ×2 (08:59→20:48)
[2019-09-29] MEDS: FOLIC ACID 1 MG TAB PO SCH (08:59)
[2019-09-29] MEDS: ASPIRIN 81 MG CHEW NG SCH (09:00)
[2019-09-29] MEDS: FAMOTIDINE 20 MG TAB OG SCH (09:00)
[2019-09-29] MEDS: METOPROLOL TARTRATE 25 MG TAB PO SCH ×3 (09:00→20:52)
--- NOTE | 2019-09-29 09:14 | Critical Care Progress Note ---
Date of Service September 29, 2019 Assessment & Plan (1) Status post admission to intensive care unit: 54-year-old female with a past medical history of end-stage renal disease on hemodialysis, poor medical compliance, aortic valve replacement, secondary pulmonary hypertension, COPD and atrial fibrillation who resides at her side retirement was admitted due to altered mental status and ultimately intubated on the floor due to lethargy and inability to protect her airway. Patient continues to be very encephalopathic. It appears that her baseline function is quite poor as she resides in a retirement. Palliative care following the patient. Plan for family meeting today over the phone per Dr. King. Continue oral metoprolol, digoxin, diltiazem and amiodarone for rate control. She has permanent atrial fibrillation and unlikely to convert to a sinus rhythm. She has a relative contraindication given her history of severe intracerebral hemorrhage for anticoagulation. Continue DVT prophylaxis with heparin. Ammonia level is elevated today. Added lactulose yesterday. I wonder if she has an element of cardiac cirrhosis. Neurology is following the patient and they do not feel that there is any underlying seizure activity. EEGs x2 have been negative for epileptiform discharges. Continuing vancomycin, cefepime and ampicillin given her PICTURE COPYIST shunt and altered mental status. May need to consider transfer to a tertiary care center to access the PICTURE COPYIST shunt for a sample if the family continues to want aggressive care. Unable to obtain MRI of the brain yesterday due to the PICTURE COPYIST shunt. Continue midodrine for hypotension. Continue tube feeds. Nutrition on board. Famotidine for GI prophylaxis. Overall prognosis remains poor. Unable to extubate due to mental status and rapid respiratory rate while on spontaneous breathing trial. Patient discussed on interdisciplinary bedside rounds today. CRITICAL CARE TIME - I have personally spent 32 minutes of critical care time in the direct management of this patient. This is a life/limb threatening event. This includes time spent evaluating patient, direct bedside care, chart review, placing orders, interpretation of diagnostic studies, discussion with consultants, patient, and family members, as well as other required patient management activities. This time is exclusive of all separately billable procedures, and teaching time and separate from and in addition to any other critical care service time. (2) Acute encephalopathy: (3) Acute and chronic respiratory failure: (4) Acute respiratory failure with hypoxia and hypercarbia: (5) CHF (congestive heart failure): (6) Atrial fibrillation with rapid ventricular response: (7) Multifocal pneumonia: (8) ESRD (end stage renal disease) on dialysis: (9) Secondary pulmonary hypertension: Admission and Anticipated Discharge Date Admission Date: September 25, 2019 Subjective No significant change from yesterday. Patient is still delirious and not following commands. She does move her extremities spontaneously. Off with sedation. Getting intermittent doses of fentanyl. Palliative care visited with the patient and discussed with family members over the phone. Review of Systems Review of Systems: Unobtainable due to endotracheal tube and Unobtainable due to reduced consciousness Physical Exam ENMT: external ear and nose normal, oropharynx normal Neck: trachea midline, no thyromegaly Respiratory: normal respiratory effort, lungs clear to auscultation Cardiovascular: Rate/Rhythm: regular rate; + abnormal rhythm Heart Sounds: normal S1 and normal S2 Gastrointestinal (Abdomen): normal bowel sounds, soft, nontender, no he patosplenomegaly Inspection/Auscultation: abdomen not distended Musculoskeletal: no cyanosis or clubbing, extremities motor strength 5/5 Skin: no rashes, warm and dry Results & Data Results & Data ([facility]) Vital Signs (Past 12 Hours) Vital Signs Temp Pulse Resp BP Pulse Ox 09/29/19 07:08 27 H 09/29/19 06:00 74 20 95/55 L 91 09/29/19 05:00 65 20 88/50 L 92 09/29/19 04:59 69 20 92 09/29/19 04:00 99.3 F 77 19 104/57 L 91 09/29/19 03:00 66 17 103/54 L 93 09/29/19 02:08 64 18 95 09/29/19 02:00 67 17 98/62 L 94 09/29/19 01:00 65 16 95/50 L 95 09/29/19 00:00 99.5 F 73 22 111/69 92 09/28/19 23:57 91 09/28/19 23:20 75 21 93 09/28/19 23:00 74 18 110/61 95 09/28/19 22:00 74 109/65 94 Coding Level of Care Code Critical Care 1st 30-74 mins Diagnoses Status post admission to intensive care unit Acute encephalopathy G93.40 Acute and chronic respiratory failure J96.20 Acute respiratory failure with hypoxia and hypercarbia J96.01; J96.02 CHF (congestive heart failure) I50.9 Heart failure chronicity: acute Heart failure type: unspecified Atrial fibrillation with rapid ventricular response I48.91 Multifocal pneumonia J18.9 ESRD (end stage renal disease) on dialysis N18.6; Z99.2 Secondary pulmonary hypertension Time Spent (min) 32 (1) CHF (congestive heart failure) Heart failure chronicity: acute Heart failure type: unspecified Qualified Code(s): I50.9 - Heart failure, unspecified
[2019-09-29] MEDS: HEPARIN SOD 5,000 UNIT/0.5 ML VIAL SQ SCH ×2 (10:07→20:50)
--- NOTE | 2019-09-29 10:11 | Pharmacy Report ---
Pharmacy Abx Dose Short Note - Date of Service September 29, 2019 - Assessment & Plan Assessment * 54 year old F receiving VANCOMYCIN + CEFEPIME + AMPICILLIN for possible meningitis (in the setting of shunt placement) and MRSA pneumonia * Patient remains on vent, encephalopathy continues * Patient dose have h/o intraparenchymal/intraventricular hemorrhage w/ crani and shunt placement * Tmax 38 over last 24 hrs, + leukocytosis * + MRSA nasal swab * + MRSA in sputum cx * latest CXR read as: "Interstitial thickening and perihilar airspace opacities have slightly improved" * Patient does have h/o ESRD on HD . 3.5hr HD planned today. Plan Vancomycin * Random vancomycin level = 18.8 this AM, last dose vancomycin given 2 days ago following HD session (500mg given) * Will give 750mg vancomycin following today's HD session as next session not likely to take place for 3 days * Will check random level w/ AM labs prior to next HD treatment on Wednesday * Will redose when level b/w 15-20mcg/mL or anticipated to be so following HD session * Goal trough level for unknown source of infxn, possible INSTRUCTIONAL MANAGER source : 15 to 20 mcg/mL Cefepime * continue max dose of 1gm Q 24 hrs for intermittent HD Ampicillin * 2gm IV Q 12 hrs = max dose for intermittent HD Pharmacy will continue to follow and will adjust dose/frequency as necessary. Thank you.
[2019-09-29] MEDS: PHENYLEPHRINE HCL 40 MG in DEXTROSE 5% 500 ML IV SCH (11:12)
--- NOTE | 2019-09-29 11:48 | Progress Notes ---
DATE: 09/29/2019 NEPHROLOGY PROGRESS NOTE SUBJECTIVE: The patient continues to be in intensive care unit. She is still critically ill. She failed her extubation trial protocol. She is due for dialysis later today. REVIEW OF SYSTEMS: Unobtainable due to endotracheal intubation. OBJECTIVE: VITAL SIGNS: Blood pressure is 107/57, respiratory rate 27 on mechanical ventilator, 93% oxygenation. GENERAL: The patient appears critically ill. HEENT: Mucous membranes moist. NECK: Supple. CHEST: Bilateral decreased breath sounds with bilateral rhonchi. CARDIOVASCULAR: S1 and S2, regular. ABDOMEN: Soft, nontender. EXTREMITIES: Show trace to 1+ edema with chronic skin changes. LABORATORY TESTS: From this morning reviewed in detail. WBC count 12,000, hemoglobin 12.5. Sodium 137, potassium 3.8, CO2 of 25, BUN 42, creatinine 5.92, phosphorus 2.4, ammonia 50. ASSESSMENT AND PLAN: A 54-year-old female with extremely complicated medical history including end-stage renal disease, on chronic hemodialysis [id number], admitted with altered mental status of multifactorial/unclear etiology. End-stage renal disease: She will be getting dialysis later today for 3 hours and 30 minutes and we will take fluid as tolerated, about 1-2 kilos. Palliative medicine has also been consulted to facilitate level of care. SHAYY
[2019-09-29] MEDS: dilTIAZem HCL 30 MG TAB PO SCH ×2 (12:06→17:44)
--- NOTE | 2019-09-29 12:07 | Ultrasound Report ---
US liver CLINICAL HISTORY: Evaluate for cirrhosis. COMPARISON STUDY: KUB September 25, 2018. FINDINGS: A small amount of abdominal ascites is noted. The liver is slightly heterogeneous. There is suspected mild nodularity of the liver surface. No hepatic lesions are identified by sonography. The re is no biliary ductal dilatation. The common bile duct measures 5 m in caliber. Gallstones within t he gallbladder are noted. The gallbladder is not distended. There is moderate gallbladder wall thicke jeanne, a nonspecific finding. Sonographic Hancock sign could not be assessed for in this patient. The p ancreatic body is normal. Head and tail are slightly obscured. There is no right hydronephrosis. Righ t renal cortical thinning is noted. IMPRESSION: 1. Probable cirrhosis. Small amount of ascites. 2. Cholelithiasis. Moderate gallbladder wall thickening, a nonspecific finding. These findings do not strongly suggest acute cholecystitis although if clinically indicated, a hepatobiliary scan could be obtained. 3. No biliary ductal dilatation. ACT 112: Negative or not required by law. Electronically signed by: Jose Lopez M.D. 09/29/2019 12:05 PM
[2019-09-29] MEDS: CEFEPIME 1,000 MG in SYRINGE 0 ML IV SCH (13:31)
[2019-09-29] MEDS ORDERED: VANCOMYCIN HCL 750 MG in SODIUM CHLORIDE 0.9% 250 ML IV ONE (14:00)
--- NOTE | 2019-09-29 14:07 | Hospitalist Progress Note ---
Date of Service September 29, 2019 Assessment & Plan (1) Acute encephalopathy: Empirically treating for meningitis given the CONCRETE PAVEMENT INSTALLER shunt and overall clinical picture. - Unable to do LP due to CONCRETE PAVEMENT INSTALLER shunt. Our facility cannot get a sample from the shunt. - No improvement today. Still off sedation apart from some PRN fentanyl. (2) Altered mental state: Possibly due to post-ictal confusion and hypoxemia. - Continue abx for possible meningitis. - Mental status improving slightly off propofol, but still no real purposeful reactions. (3) Acute respiratory failure with hypoxia and hypercarbia: Chronic hypoxia with baseline O2 2.5L/min. Chronic hypercapnia reflected in HCO3 29. - Presently on mechanical ventilation; settings per ICU (4) Atrial fibrillation with rapid ventricular response: HR presently in the 90 range, but with low blood pressure as well. - Continue beta-fatoumata and amiodarone per ICU team - On diltiazem gtt for continued tachycardia (5) Elevated INR: Unclear etiology as no known liver disease and now off warfarin. Possibly malnutrition. - Will defer vitamin K to ICU team (6) COPD (chronic obstructive pulmonary disease): On no maintenance inhalers for this. - Duonebs PRN for wheezing (7) ESRD (end stage renal disease): - Consult nephrology. - HD on 09/26 without issue. (8) S/P AVR (aortic valve replacement) and aortoplasty: Noted (9) Macrocytosis: Suspect secondary to EPO injections at dialysis. - Neurology asked for B12/folate (10) DVT prophylaxis: Heparin 5,000 units Q12h Admission and Anticipated Discharge Date Admission Date: September 25, 2019 Subjective Mouthing on the ET tube, but no responses. Review of Systems Review of Systems: Unobtainable due to cognitive status and Unobtainable due to endotracheal tube Physical Exam Constitutional: WD/WN, vitals as above + acute distress and + mechanically ventilated Eyes: EOM intact bilaterally; no conjunctival abnormality ENMT: external ear and nose normal, oropharynx normal Neck: trachea midline, no thyromegaly normal visual inspection Respiratory: normal respiratory effort, lungs clear to auscultation + respiratory distress Cardiovascular: Rate/Rhythm: regular rhythm and + tachycardic Heart Sounds: normal S1 and normal S2 Gastrointestinal (Abdomen): Inspection/Auscultation: abdomen normal to inspection; abdomen not distended Musculoskeletal: no cyanosis or clubbing, extremities motor strength 5/5 Skin: no rashes, warm and dry Neurologic: + does not move all extremities and + not awake Psychiatric: Orientation: + not alert Results & Data Results & Data ([facility]) Vital Signs (Past 12 Hours) Vital Signs Temp Pulse Resp BP Pulse Ox 09/29/19 12:59 93 H 106/70 91 09/29/19 11:58 37.5 C 76 97/60 L 94 09/29/19 11:35 79 18 93 09/29/19 10:58 80 107/76 93 09/29/19 09:58 81 107/57 L 93 09/29/19 08:58 82 93/67 L 93 09/29/19 07:58 37.5 C 71 93/53 L 89 L 09/29/19 07:08 27 H 09/29/19 06:58 71 98/59 L 90 09/29/19 06:00 74 20 95/55 L 91 09/29/19 05:00 65 20 88/50 L 92 09/29/19 04:59 69 20 92 09/29/19 04:00 37.4 C 77 19 104/57 L 91 09/29/19 03:00 66 17 103/54 L 93 09/29/19 02:08 64 18 95 PG Care Time/CCT Total # of Minutes Spent Total Time Spent with Patient: Total time spent is greater than 50% in coordination of care (as documented) at patient's floor/unit and/or counseling patient: Coding Level of Care Code 64843 Subseq Hosp Care Lvl 2 Diagnoses Acute encephalopathy G93.40 Altered mental state R41.82 Acute respiratory failure with hypoxia and hypercarbia J96.01; J96.02 Atrial fibrillation with rapid ventricular response I48.91 Elevated INR R79.1 COPD (chronic obstructive pulmonary disease) J44.9 ESRD (end stage renal disease) N18.6 S/P AVR (aortic valve replacement) and aortoplasty Z95.2 Macrocytosis D75.89 DVT prophylaxis Z29.9
--- NOTE | 2019-09-29 14:09 | Cardiology Progress Note ---
Date of Service September 29, 2019 Assessment & Plan (1) Atrial fibrillation with rapid ventricular response: History of permanent AF. RBBB. Severe RV chamber dilatation, RV systolic dysfunction, severe TR (all chronic echo findings). Asc aorta repair, bio AVR (initial operation 2008, redo 2014) ESRD on HD. Fall with traumatic brain injury, 2019, prompting craniotomy, ELEMENTARY SCHOOL COUNSELOR shunt placement Thrombocytopenia -Case discussed with Dr. Hicks with critical care medicine. Agree with discontinuing IV amiodarone, proceeding with amiodarone via the orogastric tube, oral digoxin 0.0625 mg every Wednesday and Wednesday, and oral diltiazem. Pedrito Lim is seen in follow-up of atrial fibrillation and hypertension. She opens her eyes, responsive to commands. Atrial fibrillation rates improved to the 80 bpm range, and her blood pressure is stable with systolic blood pressures over 100 mmHg. She remains on diltiazem 5 mg/h, amiodarone 0.5 mg/min. Review of Systems Review of Systems: Unobtainable due to reduced consciousness Physical Exam Physical Exam: Temp Pulse Resp BP Pulse Ox 37.5 C 93 H 18 106/70 91 09/29/19 11:58 09/29/19 12:59 09/29/19 11:35 09/29/19 12:59 09/29/19 12:59 Constitutional: Chronically ill in appearance Respiratory: normal respiratory effort, lungs clear to auscultation Cardiovascular: Rate/Rhythm: + irregularly irregular Gastrointestinal (Abdomen): Soft, nontender Neurologic: Awake, does not respond to commands. Results & Data Vital Signs (Past 12 Hours) Vital Signs Temp Pulse Resp BP Pulse Ox 09/29/19 12:59 93 H 106/70 91 09/29/19 11:58 37.5 C 76 97/60 L 94 09/29/19 11:35 79 18 93 09/29/19 10:58 80 107/76 93 09/29/19 09:58 81 107/57 L 93 09/29/19 08:58 82 93/67 L 93 09/29/19 07:58 37.5 C 71 93/53 L 89 L 09/29/19 07:08 27 H 09/29/19 06:58 71 98/59 L 90 09/29/19 06:00 74 20 95/55 L 91 09/29/19 05:00 65 20 88/50 L 92 09/29/19 04:59 69 20 92 09/29/19 04:00 37.4 C 77 19 104/57 L 91 09/29/19 03:00 66 17 103/54 L 93 09/29/19 02:08 64 18 95 Laboratory Results Coagulation 09/29/19 09/29/19 Range/Units 05:08 06:16 PT Cancelled 15.1 H CBC 09/29/19 Range/Units 05:08 WBC 12.31 H (4.8-10.8) K/uL RBC 4.08 L (4.2-5.4) M/uL Hgb 12.5 (12.0-16.0) g/dL Hct 40.0 (37-47) % Plt Count 88 L (130-400) K/uL Neut # (Auto) 10.72 H (1.4-6.5) K/uL Lymph # (Auto) 0.47 L (1.2-3.4) K/uL Summers # (Auto) 0.94 H (0.11-0.59) K/uL Eos # (Auto) 0.13 (0-0.5) K/uL Baso # (Auto) 0.02 (0-0.2) K/uL Comprehensive Metabolic Panel 09/29/19 09/29/19 Range/Units 05:08 06:16 Sodium Cancelled 137 Potassium Cancelled 3.8 Chloride Cancelled 103 Carbon Dioxide Cancelled 25 BUN Cancelled 42 H Creatinine Cancelled 5.92 H* D Glucose Cancelled 127 H Calcium Cancelled 8.6 Intake and Output 09/28/19 09/29/19 09/29/19 22:59 06:59 14:59 Intake Total 591.870 / 2219.617 586.13 / 2219.617 610.988 / 610.988 Output Total 1 / 3 2 / 3 Balance 590.870 / 2216.617 584.13 / 2216.617 610.988 / 610.988 Intake: IV 259.870 / 1136.617 248.13 / 1136.617 137.988 / 137.988 Cordarone 450 mg In Dextrose 5% 101.87 / 500.000 148.13 / 500.000 77.655 / 77.655 Polyolefin Container 241 ml @ 0.5 MG/MIN 16.667 mls/hr IV . Q15H [place] Rx#:[id number] Ampicillin 2,000 mg In Nss Ad- 100 / 200 100 / 200 Van 100 ml @ 200 mls/hr IV Q12H [place] Rx#:[id number] Jian-Synephrine 40 mg In D5w 500 0 / 0 ml @ 0 MCG/KG/MIN IV .Q0M [place] Rx#:[id number] Cardizem 125 mg In D5 100 ml @ 58.000 / 64.417 60.333 / 60.333 5 MG/HR 5 mls/hr IV .Q24H [place] Rx#:[id number] Tube Feeding 277 / 833 338 / 833 338 / 338 Tube Irrigant 30 / 120 60 / 60 Other 25 / 130 75 / 75 Output: # Bowel Movements 1 / 3 2 / 3 Other: # Unmeasured Voids 0 Weight 85.4 kg
--- NOTE | 2019-09-29 14:57 | Palliative Care Progress Note ---
Date of Service September 29, 2019 Assessment & Plan (1) Goals of care, counseling/discussion: -54 year old female patient with PMH end-stage renal disease on hemodialysis, poor medical compliance, aortic valve replacement, secondary pulmonary hypertension, COPD on chronic oxygen, s/p craniotomy and shunt after fall with traumatic head injury 2019, thrombocytopenia, anemia, and atrial fibrillation, presented to the hospital from dialysis center for altered mental status. Patient resides at [facility] since her TBI in 2019. On arrival to ED, patient noted to be confused and in afib with RVR. She was admitted to telemetry and started on diltiazem. Later that evening, patient was noted to be actively seizing. Code purple was called, patient was given 2mg IV lorazepam emergently. Patient was unarousable and postictal, so she was intubated and transferred to ICU. Neurology consulted. EEG negative for seizure activity x2. Patient is on abx prophylactically given her history of COIL CLEANER shunt, consideration for LP and transfer to tertiary care being discussed. Her INR is elevated -liver ultrasound suggestive of cirrhosis. Platelets low but improving, SHARMILA panel negative. Remains on diltiazem, metoprolol and amiodarone for rate control of the atrial fibrillation. Requires midodrine for blood pressure support. Pt Is on IV vancomycin/ampicillin/cefepime. Patient has been off sedation for several days, failed CPAP trial via ETT this morning. Patient did become more tachycardic during weaning trial, respiratory rate increased to the 30s. Given patient's poor baseline functional status, multiple comorbidities with ongoing critical illness, dye reel operator states her prognosis is poor. Palliative care is consulted to discuss goals of care. -Patient to be seen this afternoon. Collaborated with nursing as well as ICU attending -Spoke with [id number] and later had a family conference call with patient's sister in law and eldest son, Almas. discuss CODE STATUS and goals of care as well as plan moving forward. -Family decided that they do NOT want her to be transferred to tertiary care. They also stated that if patient is not able to be weaned from ventilator, that patient would not want a trach. -Plan to continue current treatment -Will continue to follow and assist family with medical decision making. (2) Acute encephalopathy: (3) ESRD (end stage renal disease) on dialysis: (4) Acute respiratory failure with hypoxia and hypercarbia: Subjective Patient did open her eyes to verbal and tactile stimulation, did not track my finger with her eyes, did not follow simple commands such as "squeeze my fingers" Patient occasionally showing signs of pain-did require 6 doses of IV fentanyl in the past 24 hours for pain. Patient continues to run a low-grade temp, sputum grew out MRSA. Patient due for HD today-creatinine 5.92, ammonia level 50. Patient had a liver ultrasound which showed probable cirrhosis and gallstones. Spoke with patient's [id number] Sonny Charles, , her eldest son Almas was also on the call. Spoke with Niki earlier in the day-she was going to contact patient's sons and discuss CODE STATUS as well as no escalation of care. Updated [id number] and son as to patient's current status, current ongoing treatment. Patient's son was agreeable to changing her CODE STATUS to DO NOT RESUSCITATE-no further escalation in care. Discussed with family continuing her current level of treatment throughout the weekend, will readdress goals of care on Wednesday. Did discuss the possibility of withdrawing ventilator support. Review of Systems 2 Review of Systems: Unobtainable due to cognitive status Physical Exam Physical Exam: PE: Patient intubated, NOT sedated HEENT: EOMI, does not track moving finger with eyes Respirations: Good breath sounds CV: Regular rate, positive lower extremity edema Abdomen: Soft, no grimace with palpation Neuro: Arouses for brief periods with tactile and verbal stim, did not follow simple commands Results & Data Vital Signs (Past 12 Hours) Vital Signs Temp Pulse Resp BP Pulse Ox 09/29/19 14:12 84 20 92 09/29/19 12:59 93 H 106/70 91 09/29/19 11:58 99.5 F 76 97/60 L 94 09/29/19 11:35 79 18 93 09/29/19 10:58 80 107/76 93 09/29/19 09:58 81 107/57 L 93 09/29/19 08:58 82 93/67 L 93 09/29/19 07:58 99.5 F 71 93/53 L 89 L 09/29/19 07:08 27 H 09/29/19 06:58 71 98/59 L 90 09/29/19 06:00 74 20 95/55 L 91 09/29/19 05:00 65 20 88/50 L 92 09/29/19 04:59 69 20 92 09/29/19 04:00 99.3 F 77 19 104/57 L 91 09/29/19 03:00 66 17 103/54 L 93 PG Care Time/CCT Total # of Minutes Spent Total Time Spent with Patient: Total time spent 65 minutes with greater than 50% of time spent at bedside assessing patient's current status, collaborating with ICU attending in the unit, as well as to family calls on the unit. Prolonged Care Time Prolonged Care Time: Yes Total Prolonged Care Time: 30 Coding Level of Care Code 73109 Subseq Hosp Care Lvl 3 Diagnoses Goals of care, counseling/discussion Z71.89 Acute encephalopathy G93.40 ESRD (end stage renal disease) on dialysis N18.6; Z99.2 Acute respiratory failure with hypoxia and hypercarbia J96.01; J96.02 Additional Codes Prolonged Care Time - Prolonged Care Time: Yes ([id number]) Time Spent (min) 65 Critical Care Time Prolonged Care Time Prolonged Care Time: Yes Total Prolonged Care Time: 30 65
[2019-09-30] MEDS: fentaNYL citrate 100 MCG/2 ML VIAL IV PRN ×5 (00:17→14:31)
[2019-09-30] MEDS: MIDODRINE HCL 2.5 MG TAB PO SCH ×4 (00:21→23:32)
[2019-09-30] MEDS: dilTIAZem HCL 30 MG TAB PO SCH ×5 (00:21→23:32)
[2019-09-30 03:45] LABS: Mean Corpuscular Hgb Conc 30.4 g/dL (32-36)
[2019-09-30 03:56] LABS: INR 1.3 (0.9-1.1)
[2019-09-30] MEDS: AMPICILLIN 2,000 MG in SODIUM CHLOR 0.9% AD-VAN 100 ML IV SCH ×2 (04:02→16:04)
[2019-09-30] MEDS: PEPTAMEN INTENSE VHP 1.0 CAL 1,000 ML BAG OG SCH (04:04)
[2019-09-30 04:07] LABS: BUN Creatinine Ratio 6.6 (10-20); Calcium 8.4 mg/dl (8.5-10.1); Creatinine Clr Calc Pharmacy 15.5 ml/min; Est GFR (African American) 12.6; Est GFR (Non-African American) 10.9; Hematocrit (blood only) 43.8 % (37-47); Hemoglobin 13.3 g/dL (12.0-16.0); Magnesium 2.1 mg/dl (1.8-2.4); Mean Corpuscular Hemoglobin 30.6 pg (25-34); Mean Corpuscular Volume 100.7 fL (80-100); Potassium 3.4 mmol/L (3.5-5.1); RDW Coefficient of Variation 18.9 % (11.5-14.5); Red Blood Count 4.35 M/uL (4.2-5.4); White Blood Count 14.94 K/uL (4.8-10.8)
[2019-09-30 04:21] LABS: Basophils # (auto) 0.01 K/uL (0-0.2); Basophils % (auto) 0.1 %; Eosinophils # (auto) 0.16 K/uL (0-0.5); Eosinophils % (auto) 1.1 %; Immature Granulocytes # (auto) 0.07 K/uL (0.00-0.02); Immature Granulocytes % (auto) 0.5 %; Lymphocytes # (auto) 0.76 K/uL (1.2-3.4); Lymphocytes % (auto) 5.1 %; Neutrophils # (auto) 13.04 K/uL (1.4-6.5); Neutrophils % (auto) 87.2 %; Platelet Count 67 K/uL (130-400); Platelet Estimate Decreased (Normal); Polychromasia 1+
[2019-09-30 04:28] LABS: Phosphorus 1.8 mg/dl (2.5-4.9)
[2019-09-30 05:53] LABS: iSTAT Allen Test Pass; iSTAT Arterial Blood Gas HCO3 25 meg/L (19-24); iSTAT Arterial Blood Gas pCO2 47 mmHg (35-46); iSTAT Arterial Blood Gas pH 7.34 (7.35-7.45); iSTAT Arterial Blood Gas pO2 51 mmHg (80-95); iSTAT Carbon Dioxide 27 mmol/L (24-31); iSTAT FiO2 40 %; iSTAT Site R Radial
--- NOTE | 2019-09-30 07:46 | XRay Report ---
XR chest 1V portable CLINICAL HISTORY: f/u dyspnea COMPARISON STUDY: 09/29/2019 FINDINGS: Perm catheter remains in the right atrium. Endotracheal tube is 4 cm above the travis. Find ings of pulmonary edema are similar. Nasogastric tube remains within the stomach. IMPRESSION: Tubes and lines in good position. Unchanged components of pulmonary edema. ACT 112: Negative or not required by law. The above report was generated using voice recognition software. It may contain grammatical, syntax or spelling errors. Electronically signed by: Castro Lancaster M.D. 09/30/2019 7:44 AM
[2019-09-30] MEDS: ASPIRIN 81 MG CHEW NG SCH (08:24)
[2019-09-30] MEDS: FAMOTIDINE 20 MG TAB OG SCH (08:24)
[2019-09-30] MEDS: FOLIC ACID 1 MG TAB PO SCH (08:24)
[2019-09-30] MEDS: LACTULOSE SYRUP 20 GM/30 ML UDC PO SCH ×2 (08:25→21:10)
[2019-09-30] MEDS: METOPROLOL TARTRATE 25 MG TAB PO SCH ×3 (08:25→21:10)
[2019-09-30] MEDS: AMIODARONE 200 MG TAB PO SCH ×2 (08:25→21:12)
[2019-09-30] MEDS: HEPARIN SOD 5,000 UNIT/0.5 ML VIAL SQ SCH ×2 (09:37→21:11)
--- NOTE | 2019-09-30 10:50 | Critical Care Progress Note ---
Date of Service September 30, 2019 Assessment & Plan (1) Status post admission to intensive care unit: 54-year-old female with a past medical history of end-stage renal disease on hemodialysis, poor medical compliance, aortic valve replacement, secondary pulmonary hypertension, COPD and atrial fibrillation who resides at her side [facility] was admitted due to altered mental status and ultimately intubated on the floor due to lethargy and inability to protect her airway. Patient continues to be very encephalopathic. It appears that her baseline function is quite poor as she resides in a [facility]. Palliative care following the patient. At this point, the family does not want to escalate care and does not want to transfer the patient to a tertiary center for access to the REGISTERED DIET TECHNICIAN shunt. In the next day or so we will have to make a decision with regards to compassionate extubation. Appreciate palliative care input. Continue oral metoprolol, diltiazem and amiodarone for rate control. We discontinued digoxin yesterday due to ongoing renal failure. She has permanent atrial fibrillation and unlikely to convert to a sinus rhythm. She has a relative contraindication given her history of severe intracerebral hemorrhage for anticoagulation. Continue DVT prophylaxis with heparin. Continue lactulose for elevated ammonia. Suspect likely cirrhosis given the ultrasound of her liver. Likely cardiac cirrhosis from diastolic heart failure and secondary pulmonary hypertension. Neurology is following the patient and they do not feel that there is any underlying seizure activity. EEGs x2 have been negative for epileptiform discharges. I suspect that her altered mental status is likely related to delirium, hyperammonemia and end-stage renal disease. I will stop all antibiotics except for vancomycin. Continue Vanco for MRSA pneumonia. Unable to obtain MRI of the brain due to the REGISTERED DIET TECHNICIAN shunt. Continue midodrine for hypotension. Continue tube feeds. Nutrition on board. Famotidine for GI prophylaxis. Overall prognosis remains poor. Unable to extubate due to mental status and rapid respiratory rate while on spontaneous breathing trial. Patient discussed on interdisciplinary bedside rounds today. CRITICAL CARE TIME - I have personally spent 34 minutes of critical care time in the direct management of this patient. This is a life/limb threatening event. This includes time spent evaluating patient, direct bedside care, chart review, placing orders, interpretation of diagnostic studies, discussion with consultants, patient, and family members, as well as other required patient management activities. This time is exclusive of all separately billable procedures, and teaching time and separate from and in addition to any other critical care service time. (2) Acute encephalopathy: (3) Acute and chronic respiratory failure: (4) Acute respiratory failure with hypoxia and hypercarbia: (5) CHF (congestive heart failure): (6) Atrial fibrillation with rapid ventricular response: (7) Multifocal pneumonia: (8) ESRD (end stage renal disease) on dialysis: (9) Secondary pulmonary hypertension: (10) Cirrhosis: (11) MRSA pneumonia: (12) REGISTERED DIET TECHNICIAN (ventriculoperitoneal) shunt status: Admission and Anticipated Discharge Date Admission Date: September 25, 2019 Subjective Patient continues to be severely altered. Unable to follow commands. She does open eyes spontaneously. No issues overnight. She has been receiving intermittent doses of fentanyl for evidence of pain and agitation. Patient was discussed with the bedside nurse. Review of Systems Review of Systems: Unobtainable due to endotracheal tube and Unobtainable due to reduced consciousness Physical Exam Constitutional: Chronically ill-appearing. Intubated. Eyes: PERRL, conjunctivae normal, anicteric sclerae ENMT: external ear and nose normal, oropharynx normal Neck: trachea midline, no thyromegaly Respiratory: Coarse breath sounds on the ventilator. Cardiovascular: Rate/Rhythm: regular rate; + abnormal rhythm Heart Sounds: normal S1 and normal S2 Gastrointestinal (Abdomen): normal bowel sounds, soft, nontender, no hepatosplenomegaly Inspection/Auscultation: abdomen not distended Musculoskeletal: no cyanosis or clubbing, extremities motor strength 5/5 Skin: no rashes, warm and dry Results & Data Results & Data ([facility]) Vital Signs (Past 12 Hours) Vital Signs Temp Pulse Resp BP Pulse Ox 09/30/19 07:43 91 H 18 95 09/30/19 06:15 16 09/30/19 05:54 102 H 26 H 92 09/30/19 05:46 99.3 F 102 H 138/78 92 09/30/19 05:03 99.3 F 82 91/59 L 86 L 09/30/19 04:00 87 09/30/19 03:47 99.0 F 97 H 127/67 89 L 09/30/19 02:46 99.0 F 111 H 121/78 87 L 09/30/19 01:46 98.6 F 81 97/61 L 91 09/30/19 01:34 87 20 91 09/30/19 00:46 99.1 F 96 H 111/59 L 92 09/30/19 00:00 99.1 F 106 H 103/73 84 L 09/29/19 23:47 99.3 F 91 H 103/73 92 09/29/19 23:19 83 22 92 09/29/19 22:46 99.3 F 77 100/61 91 I personally reviewed the patient's laboratory data, chest imaging and notes Coding Level of Care Code Critical Care 1st 30-74 mins Diagnoses Status post admission to intensive care unit Acute encephalopathy G93.40 Acute and chronic respiratory failure J96.20 Acute respiratory failure with hypoxia and hypercarbia J96.01; J96.02 CHF (congestive heart failure) I50.9 Heart failure chronicity: acute Heart failure type: unspecified Atrial fibrillation with rapid ventricular response I48.91 Multifocal pneumonia J18.9 ESRD (end stage renal disease) on dialysis N18.6; Z99.2 Secondary pulmonary hypertension Cirrhosis K74.60 MRSA pneumonia J15.212 REGISTERED DIET TECHNICIAN (ventriculoperitoneal) shunt status Z98.2 Time Spent (min) 34 (1) CHF (congestive heart failure) Heart failure chronicity: acute Heart failure type: unspecified Qualified Code(s): I50.9 - Heart failure, unspecified
--- NOTE | 2019-09-30 12:02 | Cardiology Progress Note ---
Date of Service September 30, 2019 Assessment & Plan (1) Permanent atrial fibrillation: Telemetry demonstrates atrial fibrillation with controlled ventricular response. Continue oral amiodarone, and diltiazem for rate control. Low-dose digoxin discontinued. Echocardiogram results reviewed. Reporting severe RV dilatation, RV dysfunction, and severe tricuspid regurgitation. These are chronic echo findings. Also history of a sending aortic repair and bioprosthetic AVR (initial operation 2008, redo 2014). No medication changes from a cardiovascular perspective. Subjective Patient seen and examined the bedside. Patient on ventilator. No concerns reported by nursing. Telemetry demonstrates atrial fibrillation with controlled ventricular response. IV diltiazem, and IV amiodarone discontinued yesterday 09/29/2019. Palliative care consultation reports changing CODE STATUS to DNR. Review of Systems Review of Systems: Unobtainable due to endotracheal tube Physical Exam Constitutional: + ill appearing Respiratory: Auscultation: no crackles, no rales, no rhonchi and no wheezes Cardiovascular: Rate/Rhythm: + irregularly irregular Heart Sounds: normal S1 and normal S2; no murmur Vessels: no JVD and no carotid bruit Extremities: no edema Gastrointestinal (Abdomen): Inspection/Auscultation: abdomen normal to inspection; abdomen not distended Percussion/Palpation: abdomen soft; abdomen nontender, no guarding and abdomen not rigid Skin: no rashes, warm and dry Results & Data Vital Signs (Past 12 Hours) Vital Signs Temp Pulse Resp BP Pulse Ox 09/30/19 11:06 70 17 95 09/30/19 07:43 91 H 18 95 09/30/19 06:15 16 09/30/19 05:54 102 H 26 H 92 09/30/19 05:46 37.4 C 102 H 138/78 92 09/30/19 05:03 37.4 C 82 91/59 L 86 L 09/30/19 04:00 87 09/30/19 03:47 37.2 C 97 H 127/67 89 L 09/30/19 02:46 37.2 C 111 H 121/78 87 L 09/30/19 01:46 37 C 81 97/61 L 91 09/30/19 01:34 87 20 91 09/30/19 00:46 37.3 C 96 H 111/59 L 92 09/30/19 00:00 37.3 C 106 H 103/73 84 L
[2019-09-30] MEDS: CEFEPIME 1,000 MG in SYRINGE 0 ML IV SCH (13:59)
--- NOTE | 2019-09-30 14:24 | Hospitalist Progress Note ---
Date of Service September 30, 2019 Assessment & Plan (1) Acute encephalopathy: Empirically treating for meningitis given the [employer] shunt and overall clinical picture. - Unable to do LP due to [employer] shunt. Our facility cannot get a sample from the shunt. - No improvement today. Still off sedation apart from some PRN fentanyl. Given fentanyl before my exam, and not breathing over the vent. Not alert. (2) Altered mental state: Possibly due to post-ictal confusion and hypoxemia. - Continue abx for possible meningitis. - Mental status improving slightly off propofol, but still no real purposeful reactions. Worse today from sedation. (3) Acute respiratory failure with hypoxia and hypercarbia: Chronic hypoxia with baseline O2 2.5L/min. Chronic hypercapnia reflected in HCO3 29. - Presently on mechanical ventilation; settings per ICU -> FiO2 demand going up; PEEP up to 8 cm this morning. Worsening. (4) Atrial fibrillation with rapid ventricular response: HR presently in the 90 range, but with low blood pressure as well. - Continue beta-fatoumata and amiodarone per ICU team - On diltiazem PO for continued tachycardia (5) Elevated INR: Unclear etiology as no known liver disease and now off warfarin. Possibly malnutrition. Ammonia also elevated despite lactulose and copious stooling. - Will defer vitamin K to ICU team (6) COPD (chronic obstructive pulmonary disease): On no maintenance inhalers for this. - Duonebs PRN for wheezing (7) ESRD (end stage renal disease): - Consult nephrology. - HD on 09/26 without issue. (8) S/P AVR (aortic valve replacement) and aortoplasty: Noted (9) Macrocytosis: Suspect secondary to EPO injections at dialysis. - Neurology asked for B12/folate (10) DVT prophylaxis: Heparin 5,000 units Q12h Admission and Anticipated Discharge Date Admission Date: September 25, 2019 Subjective Intubated and sedated. Review of Systems Review of Systems: Unobtainable due to cognitive status and Unobtainable due to endotracheal tube Physical Exam Constitutional: WD/WN, vitals as above + acute distress and + mechanically ventilated Eyes: EOM intact bilaterally; no conjunctival abnormality ENMT: external ear and nose normal, oropharynx normal Neck: trachea midline, no thyromegaly normal visual inspection Respiratory: normal respiratory effort, lungs clear to auscultation + respiratory distress Cardiovascular: Rate/Rhythm: regular rhythm and + tachycardic Heart Sounds: normal S1 and normal S2 Gastrointestinal (Abdomen): Inspection/Auscultation: abdomen normal to inspection; abdomen not distended Musculoskeletal: no cyanosis or clubbing, extremities motor strength 5/5 Skin: no rashes, warm and dry Neurologic: + does not move all extremities and + not awake Psychiatric: Orientation: + not alert Results & Data Results & Data ([facility]) Vital Signs (Past 12 Hours) Vital Signs Temp Pulse Resp BP Pulse Ox 09/30/19 13:34 81 16 96 09/30/19 11:46 37.4 C 78 89/52 L 95 09/30/19 11:06 70 17 95 09/30/19 10:46 87 83/47 L 94 09/30/19 10:03 83 109/65 95 09/30/19 08:46 82 98/59 L 97 09/30/19 08:00 94 H 09/30/19 07:46 37.6 C H 83 104/66 98 09/30/19 07:43 91 H 18 95 09/30/19 06:46 95 H 104/69 96 09/30/19 06:15 16 09/30/19 05:54 102 H 26 H 92 09/30/19 05:46 37.4 C 102 H 138/78 92 09/30/19 05:03 37.4 C 82 91/59 L 86 L 09/30/19 04:00 87 09/30/19 03:47 37.2 C 97 H 127/67 89 L 09/30/19 02:46 37.2 C 111 H 121/78 87 L PG Care Time/CCT Total # of Minutes Spent Total Time Spent with Patient: Total time spent is greater than 50% in coordination of care (as documented) at patient's floor/unit and/or counseling patient: Coding Level of Care Code 02332 Subseq Hosp Care Lvl 3 Diagnoses Acute encephalopathy G93.40 Altered mental state R41.82 Acute respiratory failure with hypoxia and hypercarbia J96.01; J96.02 Atrial fibrillation with rapid ventricular response I48.91 Elevated INR R79.1 COPD (chronic obstructive pulmonary disease) J44.9 ESRD (end stage renal disease) N18.6 S/P AVR (aortic valve replacement) and aortoplasty Z95.2 Macrocytosis D75.89 DVT prophylaxis Z29.9
[2019-09-30] MEDS ORDERED: DIGOXIN 0.125 MG TAB PO SCH (16:00)
--- NOTE | 2019-09-30 18:24 | Procedure Note ---
Procedure Note Date of Service September 26, 2019 I was contacted by the nighttime ICU PA, Ricardo and the overnight [facility] hospitalist, Dr. Bruner to come to the floors to assist with an intubation in a patient who was having seizures. Upon my arrival at the room, patient seemed postictal versus heavily sedated as I was informed the patient had been given 2 mg of Ativan to stop her seizures. Patient does have a seizure history and is on Keppra. The ICU PA was at the head of the bed and RT was there assisting respiratory effort with bagging. The ICU PA had attempted intubation prior to my arrival and was unsuccessful. Given patient's significant history, we discussed medications briefly. Patient given an additional 2 mg of Versed, and we had rocuronium ready in case she needed to be paralyzed. I used a 3 MAC blade to visualize the airway, and it was immediately noted patient had poor dentition, and dried blood throughout the mouth, posterior oropharynx, and down involving the vocal cords. It is unclear if this is secondary to trauma and tongue biting during the seizure or from the prior intubation attempts by the physician doctor assistant. Unfortunately due to patient's significant micrognathia and distal/anterior airway, it seemed readily apparent that attempting to pass the ET tube in the usual fashion would obscure visualization of the airway and cords. I manually used my right hand to help manipulate the cords for optimal view and ask RT to provide the same positioning. I then used a bougie which was successfully placed under the epiglottis and through the cords, and a 7.5 ET tube exchanged with the assistance of RT. Positive breath sounds were noted bilaterally, color change immediately noted with bagging, condensation noted in the ET tube. I asked the road mender to order a chest x-ray for confirmation. I discussed with them additional post intubation medications. Patient was going to be transferred to the ICU. Patient's vital signs otherwise remained stable. Additional orders provided by internal medicine and critical care. Total time spent on the floor for this intubation procedure was 20 minutes. Coding
[2019-10-01] MEDS: fentaNYL citrate 100 MCG/2 ML VIAL IV PRN (00:12)
[2019-10-01] MEDS: AMPICILLIN 2,000 MG in SODIUM CHLOR 0.9% AD-VAN 100 ML IV SCH (04:00)
[2019-10-01 04:32] LABS: Mean Corpuscular Hgb Conc 31.2 g/dL (32-36)
[2019-10-01 04:36] LABS: INR 1.3 (0.9-1.1); Prothrombin Time 13.8 Seconds (9.0-12.0)
[2019-10-01 04:38] LABS: Hemoglobin 10.6 g/dL (12.0-16.0); Mean Corpuscular Volume 99.4 fL (80-100); RDW Coefficient of Variation 18.6 % (11.5-14.5); RDW Standard Deviation 67.7 fL (36.4-46.3); Red Blood Count 3.42 M/uL (4.2-5.4); White Blood Count 10.35 K/uL (4.8-10.8)
[2019-10-01 05:01] LABS: BUN Creatinine Ratio 8.3 (10-20); Calcium 8.1 mg/dl (8.5-10.1); Creatinine Clr Calc Pharmacy 12.7 ml/min; Est GFR (African American) 10.1; Est GFR (Non-African American) 8.7; Magnesium 2.2 mg/dl (1.8-2.4); Phosphorus 1.7 mg/dl (2.5-4.9); Potassium 3.3 mmol/L (3.5-5.1)
[2019-10-01 05:06] LABS: Basophils # (auto) 0.01 K/uL (0-0.2); Basophils % (auto) 0.1 %; Eosinophils # (auto) 0.27 K/uL (0-0.5); Eosinophils % (auto) 2.6 %; Immature Granulocytes # (auto) 0.02 K/uL (0.00-0.02); Immature Granulocytes % (auto) 0.2 %; Lymphocytes # (auto) 0.65 K/uL (1.2-3.4); Lymphocytes % (auto) 6.3 %; Monocytes # (auto) 0.72 K/uL (0.11-0.59); Neutrophils # (auto) 8.68 K/uL (1.4-6.5); Neutrophils % (auto) 83.8 %; Platelet Count 72 K/uL (130-400); Platelet Estimate Decreased (Normal)
[2019-10-01 05:50] LABS: iSTAT Allen Test Pass; iSTAT Arterial Blood Gas HCO3 24 meg/L (19-24); iSTAT Arterial Blood Gas pCO2 44 mmHg (35-46); iSTAT Arterial Blood Gas pH 7.34 (7.35-7.45); iSTAT Arterial Blood Gas pO2 74 mmHg (80-95); iSTAT Carbon Dioxide 25 mmol/L (24-31); iSTAT FiO2 30 %; iSTAT Site R Radial
[2019-10-01] MEDS: dilTIAZem HCL 30 MG TAB PO SCH ×3 (06:17→15:19)
[2019-10-01] MEDS: FOLIC ACID 1 MG TAB PO SCH (07:51)
[2019-10-01] MEDS: METOPROLOL TARTRATE 25 MG TAB PO SCH ×2 (07:51→12:01)
[2019-10-01] MEDS: AMIODARONE 200 MG TAB PO SCH (07:51)
[2019-10-01] MEDS: FAMOTIDINE 20 MG TAB OG SCH (07:51)
[2019-10-01] MEDS: MIDODRINE HCL 2.5 MG TAB PO SCH ×2 (07:51→15:19)
[2019-10-01] MEDS: ASPIRIN 81 MG CHEW NG SCH (07:51)
--- NOTE | 2019-10-01 07:58 | XRay Report ---
XR chest 1V portable CLINICAL HISTORY: Respiratory failure COMPARISON STUDY: 09/30/2019 FINDINGS: r there is an endotracheal tube 26 mm above the travis. There is a double-lumen right-sided central venous catheter unchanged in position. There is a nasogastric tube which extends into the st omach. There is a left-sided catheter, likely representing a particular peritoneal shunt. The heart r emains enlarged. There is radiographic evidence of congestive failure with bilateral pleural effusion s. There are associated right basilar airspace opacities, likely representing focal edema or compress ashley atelectasis.[ IMPRESSION: No significant change from the prior study. Continued radiographic evidence of pulmonary edema with bilateral pleural effusions and associated right basilar opacities statistically represent ing focal edema or atelectasis ACT 112: Negative or not required by law. Electronically signed by: Giovanni Siu M.D. 10/01/2019 7:56 AM
[2019-10-01] MEDS ORDERED: VANCOMYCIN HCL 750 MG in SODIUM CHLORIDE 0.9% 250 ML IV ONE (09:00)
--- NOTE | 2019-10-01 09:22 | Pharmacy Report ---
Pharmacy Abx Dose Short Note - Date of Service October 01, 2019 - Assessment & Plan Assessment 54 year old F receiving Vancomycin single doses based on random levels for treatment of possible meningitis and MRSA pneumonia. Day #6 of antimicrobial therapy. Patient receiving HD- last session on 09/29/19. Last dose of Vancomycin was on 09/28 @1330. A random Vanc level was drawn this morning. Laboratory Tests 10/01/19 04:17 Random Vancomycin 17.1 Plan Vancomycin * Random level of 17.1 mcg/mL is therapeutic and patient can receive another Vancomycin dose. * Vancomycin 750 mg IV x 1 was ordered this AM. * Goal trough level for Pneumonia: 15 to 20 mcg/mL * Random level ordered for: 10/02/19 with AM labs. Pharmacy will continue to follow and will adjust dose/frequency as necessary. Thank you.
[2019-10-01] MEDS ORDERED: MAGNESIUM SULFATE / D5W 1 GM/100 ML BAG IV STA (09:53)
--- NOTE | 2019-10-01 09:53 | Critical Care Progress Note ---
Date of Service October 01, 2019 Assessment & Plan (1) Status post admission to intensive care unit: 54-year-old female with a past medical history of end-stage renal disease on hemodialysis, poor medical compliance, aortic valve replacement, cirrhosis, secondary pulmonary hypertension, COPD and atrial fibrillation who resides at her side skilled nursing was admitted due to altered mental status and ultimately intubated on the floor due to lethargy and inability to protect her airway. Encephalopathy has greatly improved. Ammonia is improved. I suspect that she likely has cirrhosis and has a hyperammonemia treated with lactulose, her mental status improved. It appears that her baseline function is quite poor as she resides in a skilled nursing. Palliative care following the patient. At this point, the family does not want to escalate care and does not want to transfer the patient to a tertiary center for access to the AUTOMOBILE MECH[employer] shunt. She is ready for extubation today and she has done very well on her spontaneous breathing trial and she is awake and alert. She clearly indicated to me that she would not want to be reintubated by nodding no when I asked her to his question. She is also DNR and DNI per discussion with her family. Continue oral metoprolol, diltiazem and amiodarone for rate control. Digoxin is discontinued given her renal failure. She has a relative contraindication given her history of severe intracerebral hemorrhage for anticoagulation. Continue DVT prophylaxis with heparin. EEGs x2 have been negative for epileptiform discharges. I suspect that her altered mental status is likely related to delirium, hyperammonemia and end- stage renal disease. I will stop all antibiotics except for vancomycin and cefepime. Continue Vanco for MRSA pneumonia. Unable to obtain MRI of the brain due to the AUTOMOBILE MECH[employer]IC shunt. Continue midodrine for hypotension. Overall prognosis remains poor. CRITICAL CARE TIME - I have personally spent 31 minutes of critical care time in the direct management of this patient. This is a life/limb threatening event. This includes time spent evaluating patient, direct bedside care, chart review, placing orders, interpretation of diagnostic studies, discussion with consultants, patient, and family members, as well as other required patient management activities. This time is exclusive of all separately billable procedures, and teaching time and separate from and in addition to any other critical care service time. (2) Acute encephalopathy: (3) Acute and chronic respiratory failure: (4) Acute respiratory failure with hypoxia and hypercarbia: (5) CHF (congestive heart failure): (6) Atrial fibrillation with rapid ventricular response: (7) Multifocal pneumonia: (8) ESRD (end stage renal disease) on dialysis: (9) Secondary pulmonary hypertension: (10) Cirrhosis: (11) MRSA pneumonia: (12) AUTOMOBILE MECH[employer]IC (ventriculoperitoneal) shunt status: Admission and Anticipated Discharge Date Admission Date: September 25, 2019 Subjective Patient is much more awake and alert today. She is able to follow commands. She is squeezing my fingers when asked and wiggling her toes. Review of Systems Review of Systems: Unobtainable due to endotracheal tube Physical Exam Constitutional: Chronically ill appearing. Intubated. Eyes: PERRL, conjunctivae normal, anicteric sclerae ENMT: external ear and nose normal, oropharynx normal Neck: trachea midline, no thyromegaly Respiratory: normal respiratory effort, lungs clear to auscultation Cardiovascular: Rate/Rhythm: + irregularly irregular Heart Sounds: normal S1 and normal S2 Gastrointestinal (Abdomen): normal bowel sounds, soft, nontender, no hepatosplenomegaly Musculoskeletal: no cyanosis or clubbing, extremities motor strength 5/5 Skin: no rashes, warm and dry Neurologic: She is following commands today and able to wiggle her toes and squeeze my fingers upon request. Results & Data Results & Data ([facility]) Vital Signs (Past 12 Hours) Vital Signs Temp Pulse Resp BP Pulse Ox 10/01/19 07:52 77 21 95 10/01/19 05:58 87 19 94 10/01/19 05:47 97.7 F 80 98/55 L 93 10/01/19 04:46 98.1 F 91 H 118/70 96 10/01/19 04:00 80 10/01/19 03:47 97.9 F 66 94/52 L 94 10/01/19 02:47 98.1 F 79 101/63 96 10/01/19 01:46 98.1 F 70 94/52 L 95 10/01/19 01:45 71 16 94 10/01/19 00:50 98.4 F 73 86/46 L 97 10/01/19 00:33 74 22 94 09/30/19 23:54 98.4 F 83 88/50 L 94 09/30/19 23:47 71 88/50 L 98 09/30/19 22:46 69 94/56 L 98 Coding Level of Care Code Critical Care 1st 30-74 mins Diagnoses Status post admission to intensive care unit Acute encephalopathy G93.40 Acute and chronic respiratory failure J96.20 Acute respiratory failure with hypoxia and hypercarbia J96.01; J96.02 CHF (congestive heart failure) I50.9 Heart failure chronicity: acute Heart failure type: unspecified Atrial fibrillation with rapid ventricular response I48.91 Multifocal pneumonia J18.9 ESRD (end stage renal disease) on dialysis N18.6; Z99.2 Secondary pulmonary hypertension Cirrhosis K74.60 MRSA pneumonia J15.212 AUTOMOBILE MECH[employer]IC (ventriculoperitoneal) shunt status Z98.2 Time Spent (min) 31 (1) CHF (congestive heart failure) Heart failure chronicity: acute Heart failure type: unspecified Qualified Code(s): I50.9 - Heart failure, unspecified
[2019-10-01] MEDS: LACTULOSE SYRUP 20 GM/30 ML UDC PO SCH (09:57)
[2019-10-01] MEDS: HEPARIN SOD 5,000 UNIT/0.5 ML VIAL SQ SCH (09:57)
[2019-10-01] MEDS ORDERED: POTASSIUM CHLORIDE / WTR 10 MEQ/100 ML PLCT IV SCH (10:00)
[2019-10-01] MEDS ORDERED: POTASSIUM PHOSPHATE IV ONE (10:30)
[2019-10-01] MEDS ORDERED: SODIUM CHLORIDE 0.9% IV ONE (10:30)
[2019-10-01] MEDS ORDERED: RACEPINEPHRINE 2.25% NEBU SOLN 0.5 ML VIAL ONE (10:48)
--- NOTE | 2019-10-01 10:57 | Communication Note ---
Date of Service: October 01, 2019 I was informed by the bedside RN that the patient became tachypneic about 30 minutes after extubation. I examined her and she does appear to have some mild stridor. We will give her 40 mg of IV Solu-Medrol, racemic epinephrine and start her on BiPAP. I called the patient's family and indicated the situation. She is a DO NOT RESUSCITATE and DO NOT INTUBATE. We will not escalate care or reintubate if she does become worse. We will focus on comfort at that point. Hopefully, we can help her get over this event. Also, prior to extubating her she very clearly indicated by shaking her head no that she would not want to be reintubated when I asked her if something like this were to occur. Coding Level of Care Code Critical Care 1st 30-74 mins Time Spent (min) 30
[2019-10-01] MEDS ORDERED: methylPREDNISolone 40 MG in SYRINGE 0 ML IV SCH (11:00)
[2019-10-01] MEDS ORDERED: RACEPINEPHRINE 2.25% NEBU SOLN 0.5 ML VIAL NEB STA (11:05)
[2019-10-01] MEDS ORDERED: fentaNYL citrate 100 MCG/2 ML VIAL IV ONE (11:28)
--- NOTE | 2019-10-01 11:38 | Progress Notes ---
DATE: 10/01/2019 NEPHROLOGY PROGRESS NOTE SUBJECTIVE: The patient continues to be in intensive care unit; however, she got extubated just a few hours ago, but she does not look very comfortable. Heart rate is fast and she is definitely breathing with labor. Somewhat alert but too weak to really talk. PHYSICAL EXAMINATION: VITAL SIGNS: Blood pressure is 98/55, 95% on 5 liters of oxygen, pulse rate 77, temperature 36.5. CHEST: Bilaterally decreased breath sounds with crackles and rhonchi. CARDIOVASCULAR: S1 and S2 irregular, systolic murmur heard. ABDOMEN: Soft, nontender. EXTREMITIES: Show 2+ pitting edema in the thigh, but only trace in the ankle area. LABORATORY TESTS: From this morning was reviewed in detail. Sodium 138, potassium 3.3, BUN 43, creatinine 5.15. ASSESSMENT AND PLAN: A 54-year-old female with extremely complicated medical history including end-stage renal disease, on chronic hemodialysis [id number], admitted with altered mental status of multifactorial/unclear etiology. 1. End-stage renal disease: She will be getting dialysis hopefully tomorrow for 3 hours and 30 minutes and we will take fluid as tolerated. She has clear evidence of significant fluid retention, but because of low blood pressure issues, we are limited. Palliative medicine has also been consulted to facilitate level of care. At this time, there is no plan for re-intubation if such need arise. 2. Encephalopathy: This has greatly improved. MTDD
[2019-10-01] MEDS ORDERED: STAT IV Infusion **Titration per Protocol STA (12:17)
[2019-10-01] MEDS ORDERED: DEXMEDETOMIDINE HCL 200 MCG in SODIUM CHLORIDE 0.9% 48 ML IV SCH (12:30)
--- NOTE | 2019-10-01 12:30 | Cardiology Progress Note ---
Date of Service October 01, 2019 Assessment & Plan (1) Permanent atrial fibrillation: Ventricular response trending upward status post extubation secondary to labored breathing. Further management of respiratory status as per critical care medicine. Racemic epinephrine and corticosteroids ordered. Per discussion with critical care service, patient is now a DNR. No medication changes from a cardiovascular perspective. Subjective Patient seen and examined at the bedside. Extubated at 10 AM. She is awake and following commands, however tachypneic with audible stridor noted. Critical care has ordered racemic epinephrine and corticosteroids. Heart rate trending upward. Review of Systems Review of Systems: Unobtainable due to cognitive status Physical Exam Constitutional: + ill appearing Respiratory: + labored breathing and + stridor Auscultation: + rhonchi; no crackles and no rales Cardiovascular: Rate/Rhythm: + irregularly irregular Heart Sounds: normal S1 and normal S2; no murmur Vessels: no JVD and no carotid bruit Extremities: no edema Gastrointestinal (Abdomen): Inspection/Auscultation: abdomen normal to inspection; abdomen not distended Percussion/Palpation: abdomen soft; abdomen nontender, no guarding and abdomen not rigid Skin: no rashes, warm and dry Results & Data Vital Signs (Past 12 Hours) Vital Signs Temp Pulse Pulse Resp BP Pulse Ox 10/01/19 12:00 97 H 10/01/19 11:09 100 H 32 H 94 10/01/19 11:07 100 H 32 H 94 10/01/19 07:52 77 21 95 10/01/19 05:58 87 19 94 10/01/19 05:47 36.5 C 80 98/55 L 93 10/01/19 04:46 36.7 C 91 H 118/70 96 10/01/19 04:00 80 10/01/19 03:47 36.6 C 66 94/52 L 94 10/01/19 02:47 36.7 C 79 101/63 96 10/01/19 01:46 36.7 C 70 94/52 L 95 10/01/19 01:45 71 16 94 10/01/19 00:50 36.9 C 73 86/46 L 97 10/01/19 00:33 74 22 94
--- NOTE | 2019-10-01 13:37 | Hospitalist Progress Note ---
Date of Service October 01, 2019 Assessment & Plan (1) Acute encephalopathy: Empirically treating for meningitis given the [employer] shunt and overall clinical picture. - Unable to do LP due to [employer] CH[employer] shunt. Our facility cannot get a sample from the shunt. - Mental status improved today. She is able to respond and follow commands. (2) Altered mental state: Possibly due to post-ictal confusion and hypoxemia. - Continue abx for possible meningitis. - Mental status improving. (3) Acute respiratory failure with hypoxia and hypercarbia: Chronic hypoxia with baseline O2 2.5L/min. Chronic hypercapnia reflected in HCO3 29. - Presently extubated; however, not doing very well off vent. Considering move to comfort care. (4) Atrial fibrillation with rapid ventricular response: HR presently in the 90 range, but with low blood pressure as well. - Continue beta-fatoumata and amiodarone per ICU team - On diltiazem PO for continued tachycardia (5) Elevated INR: Unclear etiology as no known liver disease and now off warfarin. Possibly malnutrition. Ammonia was also elevated despite lactulose and copious stooling. - Defer to ICU team for now (6) COPD (chronic obstructive pulmonary disease): On no maintenance inhalers for this. - Duonebs PRN for wheezing (7) ESRD (end stage renal disease): - Consulted nephrology. - HD on 09/26 without issue. - Continue midodrine. (8) S/P AVR (aortic valve replacement) and aortoplasty: Noted (9) Macrocytosis: Suspect secondary to EPO injections at dialysis. - Neurology asked for B12/folate (10) DVT prophylaxis: Heparin 5,000 units Q12h Admission and Anticipated Discharge Date Admission Date: September 25, 2019 Subjective More awake today. Wanted the ET tube out. Now with some respiratory distress. Physical Exam Constitutional: WD/WN, vitals as above + acute distress; not mechanically ventilated Eyes: EOM intact bilaterally; no conjunctival abnormality ENMT: external ear and nose normal, oropharynx normal Neck: trachea midline, no thyromegaly normal visual inspection Respiratory: + respiratory distress Cardiovascular: Rate/Rhythm: regular rhythm and + tachycardic Heart Sounds: normal S1 and normal S2 Gastrointestinal (Abdomen): Inspection/Auscultation: abdomen normal to inspection; abdomen not distended Musculoskeletal: no cyanosis or clubbing, extremities motor strength 5/5 Skin: no rashes, warm and dry Neurologic: moves all extremities and awake Psychiatric: Orientation: alert Results & Data Results & Data ([facility]) Vital Signs (Past 12 Hours) Vital Signs Temp Pulse Pulse Resp BP Pulse Ox 10/01/19 12:00 97 H 10/01/19 11:09 100 H 32 H 94 10/01/19 11:07 100 H 32 H 94 10/01/19 07:52 77 21 95 10/01/19 05:58 87 19 94 10/01/19 05:47 36.5 C 80 98/55 L 93 10/01/19 04:46 36.7 C 91 H 118/70 96 10/01/19 04:00 80 10/01/19 03:47 36.6 C 66 94/52 L 94 10/01/19 02:47 36.7 C 79 101/63 96 10/01/19 01:46 36.7 C 70 94/52 L 95 10/01/19 01:45 71 16 94 PG Care Time/CCT Total # of Minutes Spent Total Time Spent with Patient: Total time spent is greater than 50% in coordination of care (as documented) at patient's floor/unit and/or counseling patient: Coding Level of Care Code 68998 Subseq Hosp Care Lvl 3 Diagnoses Acute encephalopathy G93.40 Altered mental state R41.82 Acute respiratory failure with hypoxia and hypercarbia J96.01; J96.02 Atrial fibrillation with rapid ventricular response I48.91 Elevated INR R79.1 COPD (chronic obstructive pulmonary disease) J44.9 ESRD (end stage renal disease) N18.6 S/P AVR (aortic valve replacement) and aortoplasty Z95.2 Macrocytosis D75.89 DVT prophylaxis Z29.9
[2019-10-01] MEDS ORDERED: LORazepam 1 MG/2 ML VIAL IV PRN (14:35)
[2019-10-01] MEDS ORDERED: MoRPHine SULFATE 2 MG/ML CARP IV PRN (14:35)
[2019-10-01] MEDS: CEFEPIME 1,000 MG in SYRINGE 0 ML IV SCH (14:51)
[2019-10-01] MEDS: MoRPHine SULFATE 2 MG/ML CARP IV PRN (16:24)
--- NOTE | 2019-10-01 16:55 | Billing Data ---
Date of Service October 01, 2019 Coding Level of Care Code 33316 Prolonged Care (int'l) Comment At bedside with patient from 9:00am to 9:15am and 3:40pm to 4:00pm.
[2019-10-02] MEDS: MoRPHine SULFATE 2 MG/ML CARP IV PRN ×5 (02:05→22:13)
[2019-10-02] MEDS ORDERED: HEPARIN SOD (PORCINE) 1000 UNIT/ML 10 ML VIAL IV ONE (09:06)
[2019-10-02] MEDS ORDERED: SODIUM CHLORIDE 0.9% 1000ML 1,000 ML IV PRN (09:06)
--- NOTE | 2019-10-02 13:56 | Palliative Care Progress Note ---
Date of Service October 02, 2019 Assessment & Plan (1) Goals of care, counseling/discussion: -54 year old female patient with PMH end-stage renal disease on hemodialysis, poor medical compliance, aortic valve replacement, secondary pulmonary hypertension, COPD on chronic oxygen, s/p craniotomy and shunt after fall with traumatic head injury 2019, thrombocytopenia, anemia, and atrial fibrillation, presented to the hospital from dialysis center for altered mental status. Patient resides at [facility] since her TBI in 2019. On arrival to ED, patient noted to be confused and in afib with RVR. She was admitted to telemetry and started on diltiazem. Later that evening, patient was noted to be actively seizing. Code michi was called, patient was given 2mg IV lorazepam emergently. Patient was unarousable and postictal, so she was intubated and transferred to ICU. Neurology consulted. EEG negative for seizure activity x2. Patient is on abx prophylactically given her history of CRIMINALIST shunt, consideration for LP and transfer to tertiary care being discussed. Her INR is elevated -liver ultrasound suggestive of cirrhosis. Platelets low but improving, SHARMILA panel negative. Remains on diltiazem, metoprolol and amiodarone for rate control of the atrial fibrillation. Patient continues to feel poorly-family agreed to extubation, patient extubated on 09/30-is now on comfort measures only. -Patient seen this afternoon. Collaborated with nursing . -Patient on comfort measures only -Monitor PRN morphine requirements-patient may require a morphine drip if symptoms increase. -Prognosis is a few days-patient is anuirc (2) Acute encephalopathy: (3) ESRD (end stage renal disease) on dialysis: (4) Acute respiratory failure with hypoxia and hypercarbia: Subjective Patient seen and examined in room 260, collaborated with nursing at bedside. Patient extubated yesterday, on comfort measures only. Patient required 4 doses of IV morphine at 4 mg in the past 24 hours for respiratory distress, required 1 dose of IV Ativan. Patient without excess secretions -no PRN's required, appears comfortable on 5 L O2 via oxime asked. Spoke with patient's [id number], Niki Charles, -updated family on patient's current status as well as comfort level. Review of Systems Review of Systems: Unobtainable due to cognitive status Physical Exam Physical Exam: PE: Patient opens eyes and responds to voice gazes unfocused, does not follow with her eyes. Positive blink with confrontation, does not follow simple commands, not moving extremities. PE: Patient appears comfortable, no acute distress Respirations: Unlabored CV: Regular rate Abdomen: Soft, no grimace with palpation Extremities: Pitting edema from knees to waist Neuro: Nonverbal, does not attempt to speak, unable to follow simple commands PG Care Time/CCT Total # of Minutes Spent Total Time Spent with Patient: Total time spent 35 minutes with greater than 50% of the time spent at bedside assessing patient's current level of function and updating family on patient's current status. Coding Level of Care Code 24032 Subseq Hosp Care Lvl 3 Diagnoses Goals of care, counseling/discussion Z71.89 Acute encephalopathy G93.40 ESRD (end stage renal disease) on dialysis N18.6; Z99.2 Acute respiratory failure with hypoxia and hypercarbia J96.01; J96.02 Time Spent (min) 35
--- NOTE | 2019-10-02 18:02 | Hospitalist Progress Note ---
Date of Service October 02, 2019 Assessment & Plan (1) Palliative care patient: s/p extubation yesterday in the ICU. post-extubation developed recurrent respiratory failure, stridor, etc. family elected to NOT reintubate and code status made DNR/DNI. later in the day she was transitioned to comfort care measures due to worsening mental & pulmonary status. remains on oxymask for comfort. morphine q1h prn. ativan prn. updated pt's son by phone on 10/02/19. they had opportunity to see her yesterday; made him aware he could visit again due to comfort care status. (2) Acute respiratory failure with hypoxia and hypercarbia: Chronic hypoxia with baseline O2 2.5L/min. Chronic hypercapnia reflected in HCO3 29. - Presently extubated; however, not doing very well off vent. Considering move to comfort care. (3) Acute encephalopathy: Empirically treating for meningitis given the POLYSOMNOGRAPHIC TECH shunt and overall clinical picture. - Unable to do LP due to POLYSOMNOGRAPHIC TECH shunt. Our facility cannot get a sample from the shunt. - Mental status improved today. She is able to respond and follow commands. (4) Atrial fibrillation with rapid ventricular response: HR presently in the 90 range, but with low blood pressure as well. - Continue beta-fatoumata and amiodarone per ICU team - On diltiazem PO for continued tachycardia (5) Elevated INR: Unclear etiology as no known liver disease and now off warfarin. Possibly malnutrition. Ammonia was also elevated despite lactulose and copious stooling. - Defer to ICU team for now (6) COPD (chronic obstructive pulmonary disease): On no maintenance inhalers for this. - Duonebs PRN for wheezing (7) ESRD (end stage renal disease): - Consulted nephrology. - HD on 09/26 without issue. - Continue midodrine. (8) S/P AVR (aortic valve replacement) and aortoplasty: Noted (9) POLYSOMNOGRAPHIC TECH (ventriculoperitoneal) shunt status: (10) History of traumatic brain injury: (11) Intraventricular hemorrhage: history of 2019 - required POLYSOMNOGRAPHIC TECH shunt placement Admission and Anticipated Discharge Date Admission Date: September 25, 2019 Subjective patient opened eyes to her name being called but did not speak or follows commands respiratory rate was rapid with mild retractions while on oxymask did not seem unconfortable or in pain Review of Systems Review of Systems: Unobtainable due to reduced consciousness Physical Exam Constitutional: + ill appearing, + altered mental status and + frail appearing; + not well developed and + not well nourished ENMT: Mouth: + dry oral mucous membranes Respiratory: + retractions and + tachypneic Auscultation: + diminished lung sounds and + rales Cardiovascular: Rate/Rhythm: regular rate and + irregularly irregular Heart Sounds: normal S1 and normal S2; no murmur Vessels: posterior tibial pulses present and dorsalis pedis pulses present; no JVD Extremities: no edema Gastrointestinal (Abdomen): Inspection/Auscultation: + abdomen distended Percussion/Palpation: abdomen nontender Psychiatric: Orientation: + not alert and + not oriented x 3 PG Care Time/CCT Total # of Minutes Spent Total Time Spent with Patient: Total time spent is greater than 50% in coordination of care (as documented) at patient's floor/unit and/or counseling patient: Coding Level of Care Code 52567 Subseq Hosp Care Lvl 1 Diagnoses Palliative care patient Z51.5 Acute respiratory failure with hypoxia and hypercarbia J96.01; J96.02 Acute encephalopathy G93.40 Atrial fibrillation with rapid ventricular response I48.91 Elevated INR R79.1 COPD (chronic obstructive pulmonary disease) J44.9 COPD type: unspecified COPD ESRD (end stage renal disease) N18.6 S/P AVR (aortic valve replacement) and aortoplasty Z95.2 POLYSOMNOGRAPHIC TECH (ventriculoperitoneal) shunt status Z98.2 History of traumatic brain injury Z87.820 Intraventricular hemorrhage I61.5 (1) COPD (chronic obstructive pulmonary disease) COPD type: unspecified COPD Qualified Code(s): J44.9 - Chronic obstructive pulmonary disease, unspecified
[2019-10-02] MEDS: HEPARIN SOD (PORCINE) 1000 UNIT/ML 10 ML VIAL IV SCH ×2 (18:24→18:25)
[2019-10-03] MEDS: MoRPHine SULFATE 2 MG/ML CARP IV PRN ×2 (03:26→05:01)
[2019-10-03] MEDS: ATROPINE SULFATE 1% OP SOLN 5 ML BTL PO PRN ×2 (03:26→05:25)
[2019-10-03] MEDS ORDERED: SCOPOLAMINE 1.5 MG TDSY TD ONE (05:33)
[2019-10-03] MEDS ORDERED: STAT IV Infusion **Titration per Protocol STA (05:34)
--- NOTE | 2019-10-03 05:39 | Communication Note ---
Date of Service: October 03, 2019 Patient seen for air hunger/dyspnea, tachypnea, and increasing secretions. Pt comfort care measures. Pt requiring PRN morphine 4mg regularly overnight for t achypnea/resp distress. On bedside exam pt opens eyes to verbal/physical stimuli but does not track. Gasping breaths, RR ~20bpm. Morphine gtt order placed. No mottling, extremities warm. Auditory secretions present. Suction + Scop patch ordered. Discussed w/ nursing staff.
[2019-10-03] MEDS ORDERED: MoRPHine SULF/NSS 250 MG/250 ML BTL IV SCH (05:45)
[2019-10-03] MEDS ORDERED: CHECK SCOPOLAMINE PATCH PLACEMENT SCH (08:00)
--- NOTE | 2019-10-03 11:00 | Death Pronouncement Note ---
Date of Service October 03, 2019 Pronouncement Note Admission Date Admission Date: September 25, 2019 Date and Time of Date of : 10/03/19 Time of : 10:13 PCOD Preliminary cause of : Acute respiratory infection Contributing Factors (1) Palliative care patient: (2) Acute respiratory failure with hypoxia and hypercarbia: (3) Acute encephalopathy: (4) Atrial fibrillation with rapid ventricular response: (5) Elevated INR: (6) COPD (chronic obstructive pulmonary disease): (7) ESRD (end stage renal disease): (8) S/P AVR (aortic valve replacement) and aortoplasty: (9) FAMILY SERVICE COUNSELOR (ventriculoperitoneal) shunt status: (10) History of traumatic brain injury: (11) Intraventricular hemorrhage: Hospital Course Hospital Course: see separate discharge summary Additional Data Confirmation of : no pulse, no respirations, no heart sounds and pupils fixed and dilated Family: at bedside Attending physician: Jatinder Mayen Was code activated?: No Autopsy requested?: No forensic computer examiner notified?: No Organ bank notified?: No Advance directives: No Coding Level of Care Code None Diagnoses Palliative care patient Z51.5 Acute respiratory failure with hypoxia and hypercarbia J96.01; J96.02 Acute encephalopathy G93.40 Atrial fibrillation with rapid ventricular response I48.91 Elevated INR R79.1 COPD (chronic obstructive pulmonary disease) J44.9 COPD type: unspecified COPD ESRD (end stage renal disease) N18.6 S/P AVR (aortic valve replacement) and aortoplasty Z95.2 FAMILY SERVICE COUNSELOR (ventriculoperitoneal) shunt status Z98.2 History of traumatic brain injury Z87.820 Intraventricular hemorrhage I61.5
--- NOTE | 2019-10-08 21:43 | Discharge Summary ---
Date of Service date of admission - September 25, 2019 date of - October 03, 2019 Admission HPI Per Admitting Provider Carina Preston is a 54 year old female patient from [facility] who was brought by EMS to the ER today from [facility] due to altered mental state. As per nursing notes discussed with nursing aide at [facility] she was given percocet yesterday causing her to have altered mental state then with hallucinations, lethargy, poor trunk control and reduced oral intake around 2pm. Labs were ordered by interior design consultant physician but they were unable to get these. However around 10:30pm she was noted to be eating sandwiches therefore appeared to improve. This morning she was noted to have taken all of her scheduled medications and she went to dialysis. As per dialysis notes provided (unable to get through to nurse on the phone) the patient arrived agitated but medically s table. Patient began to complain of shortness of breath and increased restlessness during hemodialysis. Patient not experiencing relief with increased oxygen and the treatment was terminated. As discussed with Dr Roger 1L was removed during dialysis. HR noted to be 102 pre-treatment, 104 post-treatment. As discussed with [facility] - no current COVID-19 cases, no recent fever, chills, cough. Unable to get a history from the patient. Currently on BiPAP and able to follow a few commands but not orientated to time, place or person. Recent medication changes from intermediate documentation: ropinirole recently reduced from 0.5mg PO HS to 0.25mg HS just on dialysis days the last week. Trazodone reduced from 150mg HS to 50mg HS metoprolol reduced from 12.5mg BID to daily Started on Percocet yesterday (only had one dose and was discontinued) Discussed care with her contact listed, Eusebio (sister in law), who noted during a video chat on Wednesday the patient looked awful with a puffy face and was not her usual self then either. Principal Diagnosis acute respiratory failure with hypoxia and hypercarbia in setting of chronic hypoxic respiratory failure Discharge Data Allergies Allergy/AdvReac Type Severity Reaction Status Date / Time morphine AdvReac Intermediate Photosensit Verified 10/03/19 05:38 ivity nitroglycerin AdvReac Mild Nausea Verified 10/03/19 05:38 Consultations 09/25/19 13:28 ED Decision to Admit Stat 09/25/19 16:16 Consult Nephrology Routine 09/26/19 06:19 Consult Case Management - Discharge Planning Routine 09/26/19 06:31 Consult Software Licensing Specialist Routine 09/26/19 06:38 Consult Neurology Routine 09/27/19 09:41 Consult Palliative Care Routine 09/27/19 12:44 Consult Cardiology Routine Ordered Studies 09/26/19 04:44 CT angio head wo/w Urgent 09/29/19 09:16 US liver Routine Hospital Course (1) Palliative care patient: At time of admission the patient was altered, had rapid a.fib, and was in acute/chronic respiratory failure. She required BIPAP early on in her stay for her respiratory distress. On the AM of 09/26/19 a "code purple" was called due to seizure activity. The critical care team responded to the code and, although her seizure stopped, she had agonal breathing and she was obtunded. She was intubated for airway protection. She remained on the ventilator until the AM of 10/01/2019. Post-extubation she developed recurrent respiratory failure and stridor. The patient had indicated to the ICU staff (prior to extubation) that she would NOT want re-intubation. Her family concurred with this desire. Thus the patient was NOT reintubated on 10/01/19. The patient was ultimately transitioned to a comfort care pathway on the afternoon of 10/01/19 after her respiratory status continued to worsen. The patient ultimately passed peacefully on the AM of 10/03/2019. (2) Acute respiratory failure with hypoxia and hypercarbia: Chronic hypoxia with baseline O2 2.5L/min. Acute respiratory failure was likely due to COPD and possible pneumonia in the setting of significantly altered mental status. There was likely a component of pulmonary edema from her ESRD as well contributing to poor respiratory status. (3) Acute encephalopathy: Was empirically treated for meningitis given her ON CAR SUPERVISOR shunt and altered mental status. Unable to do LP due to ON CAR SUPERVISOR shunt. Our facility could not get a sample from the shunt. She was also treated for hepatic encephalopathy. Other metabolic factors were also likely present (possible pneumonia, etc). (4) Atrial fibrillation with rapid ventricular response: Treated with beta fatoumata, cardizem, and amiodarone while here (5) Elevated INR: Unclear etiology as no known liver disease and was not on warfarin peak INR was 1.8 imaging suggested possible cirrhosis -- cardiac cirrhosis ? (6) COPD (chronic obstructive pulmonary disease): On chronic NC O2 for such (7) ESRD (end stage renal disease): received HD services while hospitalized (8) S/P AVR (aortic valve replacement) and aortoplasty: (9) ON CAR SUPERVISOR (ventriculoperitoneal) shunt status: (10) History of traumatic brain injury: (11) Intraventricular hemorrhage: history of 2019 - required ON CAR SUPERVISOR shunt placement (12) MRSA pneumonia: treated for such with IV vancomycin during the hospitalization (13) Cirrhosis: due to cardiac factors? (14) Seizure: seizure on AM of 09/26/19 loaded with keppra followed by neurology while here certainly at risk of such due to ON CAR SUPERVISOR shunt status and ? meningitis Total Time Total Time Spent Total Time Spent (In Minutes): 40 Total Time Includes: Examination of the Patient, Discharge Planning, Medication Reconciliation and Communication With Other Providers Discharge Plan Discharge Items Patient Disposition: Reason For Visit: ALTERED MENTAL STATUS Follow-up/Referrals: Ozzy Madison [Primary Care Provider] - Stand-Alone Forms: [facility] Admission Data Admit Date/Time: 09/25/19 14:26 Other DC Date/Time DO NOT enter until pt leaves facility: 10/03/19 13:46 Coding Level of Care Code D/C Day Management >30 mins Diagnoses Palliative care patient Z51.5 Acute respiratory failure with hypoxia and hypercarbia J96.01; J96.02 Acute encephalopathy G93.40 Atrial fibrillation with rapid ventricular response I48.91 Elevated INR R79.1 COPD (chronic obstructive pulmonary disease) J44.9 COPD type: unspecified COPD ESRD (end stage renal disease) N18.6 S/P AVR (aortic valve replacement) and aortoplasty Z95.2 ON CAR SUPERVISOR (ventriculoperitoneal) shunt status Z98.2 History of traumatic brain injury Z87.820 Intraventricular hemorrhage I61.5 MRSA pneumonia J15.212 Cirrhosis K74.60 Seizure R56.9
--- NOTE | 2019-10-16 05:52 | Coding Query ---
CODING QUERY To promote full compliance with coding requirements relating to patient care, provider participation is requested in all cases of shop teacher uncertainty. Please assist us with the question(s) below: Coding Question(s): The Neurology Consultation on 09/26/19 and the Neurology Progress Notes document, "There is no evidence for focal abnormalities on exam or by EEG. Nevertheless, a small stroke cannot entirely be excluded.". There is no documentation regarding a possible stroke on the Discharge Summary. Please clarify below, in your clinical opinion, regarding possible stroke documentation. ( ) Possible Stroke ( x ) Stroke was Ruled-Out ( ) Other: Please Specify Physician's Response(s): Thank you Zaria Rodriguez Principal Diagnosis: "that condition established after study, to be chiefly responsible for occasioning the admission of the patient to the hospital for care." Co-Existing Principal Diagnosis: "when two or more diagnoses equally meet the criteria for principal diagnosis as determined by the circumstances of admission, diagnostic work up, and/or therapy provided, and the Alphabetic Index, Tabular List, or another coding guideline does not provide sequencing direction, any one of the diagnoses may be sequenced first." "When the physician has documented what appears to be a current diagnosis in the body of the record, but has not included the diagnosis in the final diagnostic statement, the physician should be asked whether the diagnosis should be added." (Source [facility]oding [facility] 2 QTR90. p3-4) SHAYY
== END 2019-10-03 13:46 | disposition expired | DRG 207 ==
LOC: ED 11:40 → SUATTDRO 14:26 → 2S 14:26 → 1E 09-26 05:55 → 2W 10-01 18:20